=== PATIENT | female | born 1945 | race Caucasian/White ===

== ENCOUNTER → 2017-06-25 | Outpatient (CLI) | payer MEDICARE ==
[2016-04-19 15:11] VITALS: BP 152/72
--- NOTE | 2017-06-25 15:54 | RAD ---
DATE: 06/25/2017 EXAM: MAMMO THEO SCREENING BILATERAL Bilateral digital screening mammography to include digital breast tomosynthesis (3D mammography) HISTORY: Screening study. COMPARISON: 07/26/2014 This study was interpreted with the benefit of Computerized Aided Detection (CAD). FINDINGS: Digital MLO and CC mammograms of both breasts were obtained. Additionally digital breast tomosynthesis (3D mammography) images of both breasts in the MLO and CC projections were performed. Comparison study is dated 07/26/2014. The breast parenchyma is heterogeneously dense which can obscure a lesion on mammography (breast density code C). No spiculated mass is seen. No malignant appearing calcification or area of architectural distortion is noted. Benign-appearing calcifications are seen within both breasts. Digital breast tomosynthesis images demonstrate no spiculated mass or malignant appearing calcification. Since the previous examination there has been no significant interval change. IMPRESSION: BI-RADS Category 1, negative. There is no mammographic evidence of malignancy. Routine yearly screening mammography is recommended for follow-up. BI-RADS CATEGORY: 1 NEGATIVE RECOMMENDED FOLLOW-UP: 12M 12 MONTH FOLLOW-UP PQRS compliance statement: Patient information was entered into a reminder system with a target due date 06/25/2018 for the next mammogram. Mammography is a sensitive method for finding small breast cancers, but it does not detect them all and is not a substitute for careful clinical examination. A negative mammogram does not negate a clinically suspicious finding and should not result in delay in biopsying a clinically suspicious abnormality. "Our facility is accredited by the [employer] Mammography [employer]."
== END | disposition home or self-care (01) ==
LOC: MAMMO 13:02
PROVIDERS: ATTEND Family Medicine
DX: Z12.31 Encounter for screening mammogram for malignant neoplasm of breast (principal)
CPT/HCPCS: 77063; G0202; 77067

== ENCOUNTER 2018-01-06 15:35 | Inpatient (IN) | payer MEDICARE ==
[2018-01-06] VITALS (7 sets, daily range): BP systolic 107–141; BP diastolic 69–102
[~2018-01-06] VITALS: Ht 167.6 cm; Wt 85.3 kg
[2018-01-06] MEDS ORDERED: IV NORMAL SALINE 1,000ML 1,000 ML IV ONE (16:30)
[2018-01-06] MEDS ORDERED: ONDANSETRON PF 4 MG/2 ML VIAL. IV ONE (16:45)
--- NOTE | 2018-01-06 16:50 | EKG ---
[address] [address] Test Date: 2018-01-06 Test Time: 16:36:14 Pat Name: MARANDA BANDA Department: Room: Gender: F Nurse Practical: ESTEPHANIA : 1945 Requested By: TALIB SIERRA Order Number: [id number] Reading MD: Oscar Thurman Measurements Intervals [place] Rate: 145 P: OR: QRS: 23 QRSD: 102 T: 45 QT: 306 QTc: 478 Interpretive Statements ATRIAL FIBRILLATION. NONSPECIFIC ST-T WAVE CHANGES. RI6.01 No previous ECG available for comparison Electronically Signed On 01-08-2018 11:48:47 TROUBLE CLERK by Oscar Thurman
[2018-01-06 16:52] LABS: BASO % 0 % (0-3); EOS % 0 % (0-3); HEMATOCRIT 38.4 % (36.0-47.0); HEMOGLOBIN 13.1 g/dL (12.0-15.5); LYMPH % 11 % (24-48); MEAN CORPUSCULAR HEMOGLOBIN 32 pg (25-35); MEAN CORPUSCULAR HGB CONC 34 g/dL (31-37); MEAN CORPUSCULAR VOLUME 92 fL (79-100); MONO # 0.8 x10^3/uL (0.0-1.1); MONO % 8 % (0-9); NEUT # 7.4 x10^3uL (1.8-7.7); NEUT % 80 % (31-73); PLATELET COUNT 105 x10^3/uL (140-400); RED BLOOD COUNT 4.16 x10^6/uL (3.50-5.40); RED CELL DISTRIBUTION WIDTH 13.1 % (11.5-14.5); WHITE BLOOD COUNT 9.2 x10^3/uL (4.0-11.0)
[2018-01-06 17:07] LABS: CLARITY,URINE CLOUDY; COLOR,URINE AMBER; INFLUENZA A PATIENT NEGATIVE (NEGATIVE); INFLUENZA B PATIENT NEGATIVE (NEGATIVE)
[2018-01-06 17:08] LABS: BACTERIA,URINE MANY /HPF (0-FEW); BILIRUBIN,URINE NEG (NEG); GLUCOSE,URINE NEG (NEG); NITRITE,URINE NEG (NEG); RBC,URINE 0 /HPF (0-2); SQUAMOUS EPITHELIAL CELL,UR FEW /LPF; UROBILINOGEN,URINE 0.2 mg/dL (0.2 mg/dL)
[2018-01-06 17:10] LABS: ALBUMIN 3.2 g/dL (3.4-5.0); ALBUMIN/GLOBULIN RATIO 0.8 (1.0-1.7); CALCIUM 9.3 mg/dL (8.5-10.1); CREATININE 1.1 mg/dL (0.6-1.0); GFR 48.8; POTASSIUM 4.5 mmol/L (3.5-5.1); TOTAL BILIRUBIN 1.1 mg/dL (0.2-1.0)
--- NOTE | 2018-01-06 17:14 | RAD ---
Portable AP upright view CXR: Clinical indications: Shortness of air. Cough.. Comparison: July 18, 2016. Findings: There is an increase in interstitium on the right side which could be due to acute bronchitis. There are some ill-defined nodular infiltrates within the lateral aspect of the right midlung zone and right lower lung zone which may represent pneumonia. No pleural effusion or pneumothorax is seen. The heart size, pulmonary vasculature, mediastinum and both forrest are stable. Bilateral shoulder prostheses are seen. Impression: Acute bronchitis on the right side. Nodular lung infiltrates on the right side which may represent pneumonia. Recommend chest x-ray follow-up after completion of antibiotic therapy..
[2018-01-06 17:19] LABS: HYALINE CASTS, URINE OCC /HPF
[2018-01-06] MEDS ORDERED: METOPROLOL TARTRATE 5 MG/5 ML VIAL. IV ONE (17:30)
[2018-01-06] MEDS ORDERED: IV NORMAL SALINE 250ML 250 ML ONE (17:42)
[2018-01-06] MEDS ORDERED: AZITHROMYCIN 500 MG VIAL. IV ONE (17:42)
[2018-01-06] MEDS ORDERED: AZITHROMYCIN 500 MG in IV NORMAL SALINE 250ML 250 ML IV ONE (18:00)
[2018-01-06] MEDS ORDERED: cefTRIAXone IV Push 1 GM VIAL. IVP ONE (18:00)
[2018-01-06] MEDS ORDERED: ACETAMINOPHEN 325 MG TABLET PO PRN (18:15)
[2018-01-06] MEDS ORDERED: ONDANSETRON PF 4 MG/2 ML VIAL. IV PRN (18:15)
[2018-01-06] MEDS ORDERED: MORPHINE SULFATE 4 MG/ML DISP.SYRIN. IV PRN (18:15)
--- NOTE | 2018-01-06 18:24 | PHYS DOC ---
Past History Past Medical History: Arthritis, Diabetes, High Cholesterol, Hypertension, Other Past Surgical History: Appendectomy, Cholecystectomy, Knee Replacement, Tonsillectomy Alcohol Use: None Drug Use: None Adult General Chief Complaint Chief Complaint: FLU SYMPTOM HPI HPI Patient is a 72 year old female who presents with cough & vomiting. The patient reports 1 week history of productive cough with sweats/chills, today had onset of vomiting at least 5 episodes, not tolerating oral intake. She reports shortness of breath with exertion. She denies chest pain, abdominal pain, diarrhea, dysuria. Seen by PCP last week, negative influenza at that time. History of diabetes, hypertension, arrhythmia. PCP is Dr. Benavides. Review of Systems Review of Systems Constitutional: Reports sweats & chills Eyes: Denies change in visual acuity HENT: Denies nasal congestion, reports sore throat Respiratory: Reports cough & shortness of breath Cardiovascular: Denies chest pain or edema GI: Reports nausea & vomiting. Denies abdominal pain, or diarrhea : Denies dysuria or hematuria Musculoskeletal: Denies back pain or joint pain Integument: Denies rash or skin lesions Neurologic: Denies headache, focal weakness or sensory changes All other systems were reviewed and found to be within normal limits, except as documented in this note. Current Medications Current Medications Current Medications Medications (Trade) Dose Ordered Sig/Katherine Start Time Stop Time Status Last Admin Dose Admin Acetaminophen (Tylenol) 650 mg PRN Q4HRS PRN 01/06/18 18:15 01/07/18 18:14 Albuterol/ Ipratropium (Duoneb) 3 ml RTQID 01/06/18 20:00 01/07/18 19:59 Azithromycin (Zithromax) 500 mg STK-MED ONCE 01/06/18 17:42 01/06/18 17:43 DC Azithromycin 500 mg/Sodium Chloride 250 ml @ 250 mls/hr 1X ONCE 01/06/18 18:00 01/06/18 18:59 01/06/18 18:10 250 MLS/HR Ceftriaxone Sodium 1 gm/ Sodium Chloride 50 ml @ 100 mls/hr 1X ONCE 01/06/18 17:30 01/06/18 17:59 UNV Ceftriaxone Sodium (Rocephin) 1 gm 1X ONCE 01/06/18 18:00 01/06/18 18:01 DC 01/06/18 17:55 1 GM Metoprolol Tartrate (Lopressor Vial) 2.5 mg Q6HRS 01/07/18 00:00 UNV Morphine Sulfate (Morphine 2mg Syringe) 2 mg PRN Q2HR PRN 01/06/18 18:15 01/07/18 18:14 UNV Ondansetron HCl (Zofran) 4 mg PRN Q4HRS PRN 01/06/18 18:15 01/07/18 18:14 Sodium Chloride 1,000 ml @ 125 mls/hr Q8H 01/06/18 18:11 01/07/18 18:10 Allergies Allergies Allergies Coded Allergies Type Severity Reaction Last Updated Verified diltiazem Allergy Intermediate 04/12/16 Yes levofloxacin Allergy Intermediate 04/12/16 Yes verapamil Allergy Intermediate 04/12/16 Yes Physical Exam Physical Exam Constitutional: Well developed, well nourished, appears ill. HENT: Normocephalic, atraumatic, bilateral external ears normal, oropharynx dry , nose normal. Eyes: conjunctiva normal, no discharge. Neck: supple, no stridor. no meningismus Cardiovascular: RRR, no murmurs, no edema. Lungs & Thorax: LCTAB, no wheezing, no respiratory distress. frequent deep cough. Abdomen: soft, nontender, nondistended. no masses or pulsatile masses, no rebound or guarding. Skin: Warm, dry, no erythema, no rash. Back: No tenderness. Extremities: No tenderness, no edema. no calf tenderness or swelling. Neurologic: Alert and oriented X 3, no focal deficits noted. Psychologic: Affect normal, judgement normal, mood normal. Current Patient Data Vital Signs Vital Signs Date Time Temp Pulse Resp B/P (MAP) Pulse Ox O2 Delivery O2 Flow Rate FiO2 01/06/18 18:11 134 18 150/112 (125) 95 Room Air 01/06/18 15:45 97.8 Lab Results Laboratory Tests Test 01/06/18 16:20 01/06/18 16:25 White Blood Count 9.2 x10^3/uL (4.0-11.0) Red Blood Count 4.16 x10^6/uL (3.50-5.40) Hemoglobin 13.1 g/dL (12.0-15.5) Hematocrit 38.4 % (36.0-47.0) Mean Corpuscular Volume 92 fL (79-100) Mean Corpuscular Hemoglobin 32 pg (25-35) Mean Corpuscular Hemoglobin Concent 34 g/dL (31-37) Red Cell Distribution Width 13.1 % (11.5-14.5) Platelet Count 105 x10^3/uL (140-400) L Neutrophils (%) (Auto) 80 % (31-73) H Lymphocytes (%) (Auto) 11 % (24-48) L Monocytes (%) (Auto) 8 % (0-9) Eosinophils (%) (Auto) 0 % (0-3) Basophils (%) (Auto) 0 % (0-3) Neutrophils # (Auto) 7.4 x10^3uL (1.8-7.7) Lymphocytes # (Auto) 1.0 x10^3/uL (1.0-4.8) Monocytes # (Auto) 0.8 x10^3/uL (0.0-1.1) Eosinophils # (Auto) 0.0 x10^3/uL (0.0-0.7) Basophils # (Auto) 0.0 x10^3/uL (0.0-0.2) Sodium Level 135 mmol/L (136-145) L Potassium Level 4.5 mmol/L (3.5-5.1) Chloride Level 99 mmol/L (98-107) Carbon Dioxide Level 24 mmol/L (21-32) Anion Gap 12 (6-14) Blood Urea Nitrogen 23 mg/dL (7-20) H Creatinine 1.1 mg/dL (0.6-1.0) H Estimated GFR (Cockcroft-Gault) 48.8 BUN/Creatinine Ratio 21 (6-20) H Glucose Level 171 mg/dL (70-99) H Calcium Level 9.3 mg/dL (8.5-10.1) Total Bilirubin 1.1 mg/dL (0.2-1.0) H Aspartate Amino Transferase (AST) 32 U/L (15-37) Alanine Aminotransferase (ALT) 26 U/L (14-59) Alkaline Phosphatase 84 U/L (46-116) Troponin I Quantitative < 0.017 ng/mL (0-0.055) UO-Ura-H-Type Natriuretic Peptide 2314 pg/mL (0-124) H Total Protein 7.0 g/dL (6.4-8.2) Albumin 3.2 g/dL (3.4-5.0) L Albumin/Globulin Ratio 0.8 (1.0-1.7) L Lipase 59 U/L (73-393) L Urine Collection Type Unknown Urine Color Alma Rosa Urine Clarity Cloudy Urine pH 5.0 Urine Specific [place] 1.020 Urine Protein 100 mg/dl (NEG-TRACE) Urine Glucose (UA) Neg mg/dL (NEG) Urine Ketones (Stick) 15 mg/dL (NEG) Urine Blood Trace (NEG) Urine Nitrite Neg (NEG) Urine Bilirubin Neg (NEG) Urine Urobilinogen Dipstick 0.2 mg/dL (0.2 mg/dL) Urine Leukocyte Esterase Neg (NEG) Urine RBC 0 /HPF (0-2) Urine WBC 5-10 /HPF (0-4) Urine Squamous Epithelial Cells Few /LPF Urine Bacteria Many /HPF (0-FEW) Urine Hyaline Casts Occ /HPF Urine Mucus Slight /LPF Influenza Type A (Rapid) Negative (NEGATIVE) Influenza Type B (Rapid) Negative (NEGATIVE) EKG EKG Interpreted by me: Irregularly irregular A. fib with rapid ventricular rate 145 , no acute ST or T wave changes, no ectopy[] Radiology/Procedures Radiology/Procedures PROCEDURE: CHEST AP ONLY Portable AP upright view CXR: Clinical indications: Shortness of air. Cough.. Comparison: July 18, 2016. Findings: There is an increase in interstitium on the right side which could be due to acute bronchitis. There are some ill-defined nodular infiltrates within the lateral aspect of the right midlung zone and right lower lung zone which may represent pneumonia. No pleural effusion or pneumothorax is seen. The heart size, pulmonary vasculature, mediastinum and both forrest are stable. Bilateral shoulder prostheses are seen. Impression: Acute bronchitis on the right side. Nodular lung infiltrates on the right side which may represent pneumonia. Recommend chest x-ray follow-up after completion of antibiotic therapy.. DICTATED AND SIGNED BY: RAKESH COBURN MD DATE: 01/06/18 7456[] Course & Med Decision Making Course & Med Decision Making Pertinent Labs and Imaging studies reviewed. (See chart for details) The patient presents with respiratory illness and vomiting. Vitals stable upon arrival. Gave IV fluids, Zofran. Obtained labs, EKG, chest x-ray. Patient ambulate to the restroom, came back and had EKG performed which showed heart rate in the 140s. She was found to be in A. fib with rapid ventricular rate at that time. Allowed her to rest, gave IV fluids. Her heart rate remains significantly elevated with A. fib. Administered metoprolol as she has Cardizem allergy. This is not new onset. Suspect rapid rate related to acute illness. She was found to have pneumonia on her chest x-ray. Other than rapid heart rate , no additional criteria for SIRS/sepsis. With persistently abnormal vitals, source of infection, vomiting preventing her from taking oral antibiotics at home, recommended admission to hospital for further evaluation and treatment. The patient agreed with plan of care. Discussed with Dr. Wilder who agrees to admit to inpatient status. Consulted with Dr. Valenzuela of cardiology who agrees with management plan. The patient is being admitted in stable condition. [] Dragon Disclaimer Dragon Disclaimer This electronic medical record was generated, in whole or in part, using a voice recognition dictation system. Departure Departure: Impression: Primary Impression: Atrial fibrillation with RVR Additional Impressions: Community acquired bacterial pneumonia Nausea & vomiting Disposition: ADMITTED INPATIENT Admitting Physician: Margie Wilder Condition: GUARDED Referrals: TRISTAN PORTILLO MD (PCP) Problem Qualifiers TALIB SIERRA MD Jan 06, 2018 18:23
[2018-01-06] MEDS: IPRATRPIUM/ALBUTEROL 0.5/2.5MG 3 ML NEBU. NEB SCH (20:00)
[2018-01-06] MEDS ORDERED: CHOL2000 PO (20:07)
[2018-01-06] MEDS ORDERED: DOCU-109 PO (20:07)
[2018-01-06] MEDS ORDERED: CYAN50008 PO (20:07)
[2018-01-06] MEDS ORDERED: FISH1CAP PO (20:07)
[2018-01-06] MEDS ORDERED: CARV6.252 PO (20:07)
[2018-01-06] MEDS ORDERED: ALLO100T PO (20:07)
[2018-01-06] MEDS ORDERED: CALC-30 PO (20:07)
[2018-01-06] MEDS ORDERED: SIMV40TA3 PO (20:07)
[2018-01-06] MEDS ORDERED: GLIM4TAB2 PO (20:07)
[2018-01-06] MEDS ORDERED: TRAM50TA PO (20:07)
[2018-01-06] MEDS ORDERED: ASPI-630 PO (20:07)
[2018-01-06] MEDS ORDERED: GABA-585 PO (20:07)
[2018-01-06] MEDS ORDERED: LISI-334 PO (20:07)
[2018-01-06] MEDS ORDERED: KETOROLAC 30 MG/ML VIAL. IV PRN (20:15)
[2018-01-06] MEDS ORDERED: ACETAMINOPHEN 500 MG TABLET PO ONE (20:30)
[2018-01-06] MEDS: ENOXAPARIN 40 MG/0.4 ML DISP.SYRIN. SQ SCH (20:47)
[2018-01-06] MEDS: DEXTROSE 5% IV PRN (20:47)
[2018-01-06] MEDS: DOCUSATE SODIUM 100 MG CAPSULE PO SCH (20:47)
[2018-01-06] MEDS: SIMVASTATIN 40 MG TABLET. PO SCH (20:47)
[2018-01-06] MEDS: DILTIAZEM IV PRN (20:47)
[2018-01-06] MEDS: LACTOBACILLUS RHAMNOSUS GG 1 CAPSULE. PO SCH (20:48)
[2018-01-06] MEDS: GABAPENTIN 100 MG CAPSULE. PO SCH (20:48)
[2018-01-06] MEDS: OMEGA-3 FATTY ACIDS/FISH OIL 1,000 MG CAPSULE. PO SCH (20:48)
[2018-01-06] MEDS: IV NORMAL SALINE 1,000ML 1,000 ML IV SCH (20:49)
[2018-01-06] MEDS: CYANOCOBALAMIN (VITAMIN B-12) 250 MCG TABLET PO SCH (20:51)
[2018-01-06] MEDS: traMADol 50 MG TABLET PO SCH (20:51)
[2018-01-06] MEDS: METOPROLOL TARTRATE 5 MG/5 ML VIAL. IV SCH (23:58)
[2018-01-07] VITALS (18 sets, daily range): BP systolic 103–144; BP diastolic 59–82
[2018-01-07] MEDS: IV NORMAL SALINE 1,000ML 1,000 ML IV SCH ×3 (04:02→16:26)
[2018-01-07] MEDS: METOPROLOL TARTRATE 5 MG/5 ML VIAL. IV SCH ×3 (04:16→17:23)
[2018-01-07] MEDS: IPRATRPIUM/ALBUTEROL 0.5/2.5MG 3 ML NEBU. NEB SCH ×4 (06:15→21:17)
[2018-01-07 06:47] LABS: BASO % 0 % (0-3); EOS % 0 % (0-3); HEMATOCRIT 32.9 % (36.0-47.0); HEMOGLOBIN 11.2 g/dL (12.0-15.5); LYMPH # 1.6 x10^3/uL (1.0-4.8); LYMPH % 22 % (24-48); MEAN CORPUSCULAR HEMOGLOBIN 32 pg (25-35); MEAN CORPUSCULAR HGB CONC 34 g/dL (31-37); MEAN CORPUSCULAR VOLUME 93 fL (79-100); MONO # 0.7 x10^3/uL (0.0-1.1); MONO % 11 % (0-9); NEUT # 4.6 x10^3uL (1.8-7.7); NEUT % 67 % (31-73); PLATELET COUNT 90 x10^3/uL (140-400); RED BLOOD COUNT 3.54 x10^6/uL (3.50-5.40); RED CELL DISTRIBUTION WIDTH 13.4 % (11.5-14.5)
[2018-01-07 06:54] LABS: CALCIUM 8.3 mg/dL (8.5-10.1); GFR 54.5; POTASSIUM 3.5 mmol/L (3.5-5.1)
[2018-01-07] MEDS: GABAPENTIN 100 MG CAPSULE. PO SCH ×2 (07:35→20:23)
[2018-01-07] MEDS: OMEGA-3 FATTY ACIDS/FISH OIL 1,000 MG CAPSULE. PO SCH ×2 (07:35→20:23)
[2018-01-07] MEDS: LACTOBACILLUS RHAMNOSUS GG 1 CAPSULE. PO SCH ×2 (07:35→20:22)
[2018-01-07] MEDS: DOCUSATE SODIUM 100 MG CAPSULE PO SCH ×2 (07:35→20:23)
[2018-01-07] MEDS: GLIMEPIRIDE 2 MG TABLET PO SCH ×2 (07:35→15:32)
[2018-01-07] MEDS: CYANOCOBALAMIN (VITAMIN B-12) 250 MCG TABLET PO SCH ×2 (07:35→20:25)
[2018-01-07] MEDS: CALCIUM CARB/VIT D3 500/200 TABLET PO SCH (07:35)
[2018-01-07] MEDS: traMADol 50 MG TABLET PO SCH ×4 (07:36→20:24)
[2018-01-07] MEDS: cefTRIAXone IV Push 1 GM VIAL. IVP SCH (07:36)
[2018-01-07] MEDS: DILTIAZEM IV PRN (07:38)
[2018-01-07] MEDS: DEXTROSE 5% IV PRN (07:38)
[2018-01-07] MEDS ORDERED: ALBUTEROL SULFATE 2.5 MG/3 ML NEBU. ONE (08:20)
[2018-01-07] MEDS: ALLOPURINOL 100 MG TABLET. PO SCH (08:21)
[2018-01-07] MEDS: CHOLECALCIFEROL (VITAMIN D3) 1,000 UNIT TABLET PO SCH (08:21)
[2018-01-07] MEDS: ASPIRIN 81 MG TAB.CHEW PO SCH (08:21)
[2018-01-07] MEDS: AZITHROMYCIN 250 MG TABLET. PO SCH (08:21)
[2018-01-07] MEDS ORDERED: ACETAMINOPHEN 325 MG TABLET PO PRN (08:30)
[2018-01-07] MEDS ORDERED: ALBUTEROL SULFATE 2.5 MG/3 ML NEBU. NEB ONE (08:45)
[2018-01-07] MEDS ORDERED: ACETAMINOPHEN/CODEINE 120/12MG 5 ML SOLUTION. PO ONE (08:45)
--- NOTE | 2018-01-07 09:48 | PDOC2 ---
CONSULT Date of Admission DATE: 01/07/18 TIME: 09:46 Reason for Consult: atrial fibrillation with RVR Problem List Problems Medical Problems: (1) Atrial fibrillation with RVR Status: Acute (2) Community acquired bacterial pneumonia Status: Acute (3) Nausea & vomiting Status: Acute History of Present Illness Ms Terry is a 72 year old female who presented to the ED with complaints of shortness of breath, cough & vomiting. She reports onset about 1 week ago with associated fever/sweats and chills. Yesterday she began to have vomiting as well and being unable to tolerate any oral intake so presented to the ED for evaluation. She was noted to be in atrial fibrillation with rapid ventricular response so consult was called. She denies chest pain, or palpitations and is unsure when atrial fibrillation began. She reports dyspnea on exertion but denies congestive symptoms. she denies lightheadedness or syncope. She does complain of generalized malaise. 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, CKD stage 3 Cardiac cath 06/27/16 LM - no significant disease LAD - no significant disease LCX - no significant disease Left PDA - small, diffuse calcification without stenosis RI - small, diffuse calcification without stenosis RCA - large, diffuse calcification without stenosis Right PDA - no significant disease EF 35%, EDP 28 mmHg Past Surgical History right total knee, tonsillectomy, cholecystectomy, tubal ligation, left total knee, bilateral shoulder replacement, hernia repair, left superficial parotidectomy with facial nerve dissection Family History mother and father with heart disease Social History non smoker, no significant ETOH, no illicit drugs Current Medications Current Medications Sodium Chloride 1,000 ml @ 1,000 mls/hr 1X ONCE IV Last administered on at 16:41; Start 01/06/18 at 16:30; Stop 01/06/18 at 17:29; Status DC Ondansetron HCl (Zofran) 4 mg 1X ONCE IV Last administered on 01/06/18at 16:42 ; Start 01/06/18 at 16:45; Stop 01/06/18 at 16:46; Status DC Metoprolol Tartrate (Lopressor Vial) 2.5 mg 1X ONCE IV Last administered on at 17:48; Start 01/06/18 at 17:30; Stop 01/06/18 at 17:31; Status DC Ceftriaxone Sodium 1 gm/ Sodium Chloride 50 ml @ 100 mls/hr 1X ONCE IV ; Start 01/06/18 at 17:30; Stop 01/06/18 at 17:59; Status UNV Azithromycin 500 mg/Sodium Chloride 250 ml @ 250 mls/hr 1X ONCE IV Last administered on 01/06/18at 18:10; Start 01/06/18 at 18:00; Stop 01/06/18 at 18:59 ; Status DC Ceftriaxone Sodium (Rocephin) 1 gm 1X ONCE IVP Last administered on 01/06/18at 17:55; Start 01/06/18 at 18:00; Stop 01/06/18 at 18:01; Status DC Sodium Chloride 250 ml @ As Directed STK-MED ONCE .ROUTE ; Start 01/06/18 at 17 :42; Stop 01/06/18 at 17:43; Status DC Azithromycin (Zithromax) 500 mg STK-MED ONCE IV ; Start 01/06/18 at 17:42; Stop 01/06/18 at 17:43; Status DC Ondansetron HCl (Zofran) 4 mg PRN Q4HRS PRN IV NAUSEA/VOMITING; Start 01/06/18 at 18:15; Stop 01/07/18 at 18:14 Morphine Sulfate (Morphine 4mg Syringe) 2 mg PRN Q2HR PRN IV PAIN; Start at 18:15; Stop 01/07/18 at 18:14 Sodium Chloride 1,000 ml @ 125 mls/hr Q8H IV Last administered on 01/07/18at 04 :02; Start 01/06/18 at 18:11; Stop 01/07/18 at 18:10 Acetaminophen (Tylenol) 650 mg PRN Q4HRS PRN PO FEVER Last administered on 01/07at 07:35; Start 01/06/18 at 18:15; Stop 01/07/18 at 08:23; Status DC Albuterol/ Ipratropium (Duoneb) 3 ml RTQID NEB Last administered on 01/07/18at 06:15; Start 01/06/18 at 20:00; Stop 01/07/18 at 19:59 Metoprolol Tartrate (Lopressor Vial) 2.5 mg Q6HRS IV ; Start 01/07/18 at 00:00 Diltiazem HCl 100 mg/Dextrose 100 ml @ 5 mls/hr CONT PRN IV SEE I/O RECORD Last administered on 01/07/18at 07:38; Start 01/06/18 at 20:15 Enoxaparin Sodium (Lovenox) 40 mg Q24H SQ Last administered on 01/06/18at 20:47 ; Start 01/06/18 at 21:00 Ketorolac Tromethamine (Toradol) 30 mg PRN Q6HRS PRN IV PAIN; Start 01/06/18 at 20:15; Stop 01/11/18 at 20:14 Acetaminophen (Tylenol) 1,000 mg 1X ONCE PO Last administered on 01/06/18at 20: 47; Start 01/06/18 at 20:30; Stop 01/06/18 at 20:31; Status DC Azithromycin (Zithromax) 500 mg DAILY PO Last administered on 01/07/18at 08:21; Start 01/07/18 at 09:00 Ceftriaxone Sodium 1 gm/ Sodium Chloride 50 ml @ 100 mls/hr Q24H IV ; Start at 09:00; Status UNV Allopurinol (Zyloprim) 100 mg DAILY PO Last administered on 01/07/18at 08:21; Start 01/07/18 at 09:00 Aspirin (Children'S Aspirin) 81 mg DAILY PO Last administered on 01/07/18at 08: 21; Start 01/07/18 at 09:00 Docusate Sodium (Colace) 100 mg BID PO Last administered on 01/07/18at 07:35; Start 01/06/18 at 21:00 Gabapentin (Neurontin) 100 mg BID PO Last administered on 01/07/18 07:35; Start 01/06/18 at 21:00 Simvastatin (Zocor) 40 mg QHS PO Last administered on 01/06/18at 20:47; Start at 21:00 Tramadol HCl (Ultram) 50 mg QID PO Last administered on 01/07/18at 07:36; Start 01/06/18 at 21:00 Calcium/Vitamin D (Oscal D 500mg/ 200uts) 1 tab [id number] PO Last administered on 01/07/18at 07:35; Start 01/07/18 at 08:00 Vitamin D (Vitamin D3) 2,000 unit DAILY PO Last administered on 01/07/18at 08:21 ; Start 01/07/18 at 09:00 Cyanocobalamin (Vitamin B-12) 500 mcg BID PO Last administered on 01/07/18 07: 35; Start 01/06/18 at 21:00 Fish Oil (Fish Oil) 1,000 mg BID PO Last administered on 01/07/18at 07:35; Start 01/06/18 at 21:00 Glimepiride (Amaryl) 4 mg BIDWMEALS PO Last administered on 01/07/18 07:35; Start 01/07/18 at 08:00 Ceftriaxone Sodium (Rocephin) 1 gm DAILY IVP Last administered on 01/07/18at 07: 36; Start 01/07/18 at 09:00 Lactobacillus Rhamnosus (Culturelle) 1 cap BID PO Last administered on at 07:35; Start 01/06/18 at 21:00 Albuterol Sulfate (Ventolin) 2.5 mg STK-MED ONCE .ROUTE ; Start 01/07/18 at 08: 20; Stop 01/07/18 at 08:21; Status DC Albuterol Sulfate (Ventolin) 2.5 mg 1X ONCE NEB ; Start 01/07/18 at 08:45; Stop 01/07/18 at 08:46; Status DC Methylprednisolone Sodium Succinate (SOLU-Medrol 125MG VIAL) 125 mg Q8HRS IV ; Start 01/07/18 at 08:23 Guaifenesin (MUCINEX ER with DM) 1 tab BID PO ; Start 01/07/18 at 09:00 Acetaminophen (Tylenol) 650 mg PRN Q6HRS PRN PO PAIN / TEMP; Start 01/07/18 at 08:30 Acetaminophen/ Codeine Phosphate (Tylenol/Codeine Soln) 5 ml 1X ONCE PO ; Start 01/07/18 at 08:45; Stop 01/07/18 at 08:46; Status DC Active Scripts Active Reported Vitamin B12 (Cyanocobalamin (Vitamin B-12)) 5,000 Mcg Tab.rapdis 500 Mcg PO BID Calcium 500 + Vit D 400 Tablet (Calcium Carbonate/Vitamin D3) 1 Each Tablet 1 Each PO DAILY Colace (Docusate Sodium) 100 Mg Capsule 1 Cap PO BID Aspirin 81 Mg Tab.chew 81 Mg PO DAILY Fish Oil 1,200 Mg Fish Oil (Fish Oil/Dha/Epa) 1 Each Capsule 1 Each PO BID Vitamin D (Cholecalciferol (Vitamin D3)) 2,000 Unit Capsule 1 Cap PO DAILY Gabapentin 100 Mg Capsule 100 Mg PO BID Allopurinol 100 Mg Tablet 1 Tab PO DAILY Tramadol Hcl (Tramadol HCl) 50 Mg Tablet 50 Mg PO QID Carvedilol 6.25 Mg Tablet 1 Tab PO BID Glimepiride 4 Mg Tablet 1 Tab PO BID Simvastatin 40 Mg Tablet 1 Tab PO QHS Lisinopril 20 Mg Tablet 1 Tab PO DAILY Allergies: Coded Allergies: levofloxacin (Verified Allergy, Intermediate, 04/12/16) verapamil (Verified Allergy, Intermediate, 04/12/16) Review of System as per HPI General: Alert, Oriented X3, Cooperative, mild distress HEENT: Atraumatic, EOMI, Mucous membr. moist/pink Lungs: Other (expiratory wheezing throughout) Heart: Regular rate, Normal S1, Normal S2 Abdomen: Normal bowel sounds, Soft Extremities: No cyanosis, Normal pulses Neuro: Strength at 5/5 X4 ext Psych/Mental Status: Mental status NL, Mood NL VITALS Vital Signs Date Time Temp Pulse Resp B/P (MAP) Pulse Ox O2 Delivery O2 Flow Rate FiO2 01/07/18 09:31 90 18 118/59 (78) 95 Nasal Cannula 2.0 01/07/18 05:50 97.5 Labs Laboratory Tests Test 01/06/18 16:20 01/06/18 16:25 01/06/18 23:40 01/07/18 06:00 White Blood Count 9.2 x10^3/uL (4.0-11.0) 7.0 x10^3/uL (4.0-11.0) Red Blood Count 4.16 x10^6/uL (3.50-5.40) 3.54 x10^6/uL (3.50-5.40) Hemoglobin 13.1 g/dL (12.0-15.5) 11.2 g/dL (12.0-15.5) Hematocrit 38.4 % (36.0-47.0) 32.9 % (36.0-47.0) Mean Corpuscular Volume 92 fL (79-100) 93 fL (79-100) Mean Corpuscular Hemoglobin 32 pg (25-35) 32 pg (25-35) Mean Corpuscular Hemoglobin Concent 34 g/dL (31-37) 34 g/dL (31-37) Red Cell Distribution Width 13.1 % (11.5-14.5) 13.4 % (11.5-14.5) Platelet Count 105 x10^3/uL (140-400) 90 x10^3/uL (140-400) Neutrophils (%) (Auto) 80 % (31-73) 67 % (31-73) Lymphocytes (%) (Auto) 11 % (24-48) 22 % (24-48) Monocytes (%) (Auto) 8 % (0-9) 11 % (0-9) Eosinophils (%) (Auto) 0 % (0-3) 0 % (0-3) Basophils (%) (Auto) 0 % (0-3) 0 % (0-3) Neutrophils # (Auto) 7.4 x10^3uL (1.8-7.7) 4.6 x10^3uL (1.8-7.7) Lymphocytes # (Auto) 1.0 x10^3/uL (1.0-4.8) 1.6 x10^3/uL (1.0-4.8) Monocytes # (Auto) 0.8 x10^3/uL (0.0-1.1) 0.7 x10^3/uL (0.0-1.1) Eosinophils # (Auto) 0.0 x10^3/uL (0.0-0.7) 0.0 x10^3/uL (0.0-0.7) Basophils # (Auto) 0.0 x10^3/uL (0.0-0.2) 0.0 x10^3/uL (0.0-0.2) Sodium Level 135 mmol/L (136-145) 139 mmol/L (136-145) Potassium Level 4.5 mmol/L (3.5-5.1) 3.5 mmol/L (3.5-5.1) Chloride Level 99 mmol/L (98-107) 105 mmol/L (98-107) Carbon Dioxide Level 24 mmol/L (21-32) 26 mmol/L (21-32) Anion Gap 12 (6-14) 8 (6-14) Blood Urea Nitrogen 23 mg/dL (7-20) 20 mg/dL (7-20) Creatinine 1.1 mg/dL (0.6-1.0) 1.0 mg/dL (0.6-1.0) Estimated GFR (Cockcroft-Gault) 48.8 54.5 BUN/Creatinine Ratio 21 (6-20) Glucose Level 171 mg/dL (70-99) 160 mg/dL (70-99) Calcium Level 9.3 mg/dL (8.5-10.1) 8.3 mg/dL (8.5-10.1) Total Bilirubin 1.1 mg/dL (0.2-1.0) Aspartate Amino Transf (AST/SGOT) 32 U/L (15-37) Alanine Aminotransferase (ALT/SGPT) 26 U/L (14-59) Alkaline Phosphatase 84 U/L (46-116) Troponin I Quantitative < 0.017 ng/mL (0-0.055) < 0.017 ng/mL (0-0.055) 0.018 ng/mL (0-0.055) DL-Ybx-I-Type Natriuretic Peptide 2314 pg/mL (0-124) Total Protein 7.0 g/dL (6.4-8.2) Albumin 3.2 g/dL (3.4-5.0) Albumin/Globulin Ratio 0.8 (1.0-1.7) Lipase 59 U/L (73-393) Urine Collection Type Unknown Urine Color [place]ma Rosa Urine Clarity Cloudy Urine pH 5.0 Urine Specific [place] 1.020 Urine Protein 100 mg/dl (NEG-TRACE) Urine Glucose (UA) Neg mg/dL (NEG) Urine Ketones (Stick) 15 mg/dL (NEG) Urine Blood Trace (NEG) Urine Nitrite Neg (NEG) Urine Bilirubin Neg (NEG) Urine Urobilinogen Dipstick 0.2 mg/dL (0.2 mg/dL) Urine Leukocyte Esterase Neg (NEG) Urine RBC 0 /HPF (0-2) Urine WBC 5-10 /HPF (0-4) Urine Squamous Epithelial Cells Few /LPF Urine Bacteria Many /HPF (0-FEW) Urine Hyaline Casts Occ /HPF Urine Mucus Slight /LPF Influenza Type A (Rapid) Negative (NEGATIVE) Influenza Type B (Rapid) Negative (NEGATIVE) Magnesium Level 2.0 mg/dL (1.8-2.4) Images CXR - Impression: Acute bronchitis on the right side. Nodular lung infiltrates on the right side which may represent pneumonia. Recommend chest x-ray follow-up after completion of antibiotic therapy. EKG unavailable Assessment/Plan 1. atrial fibrillation with RVR - Cardizem drip and change to PO when rate control improves, check echo. [id number] score =5. She prefers warfarin for anticoagulation due to her insurance 2. CAP - mgmt per PCP 3. hypertension with history of NICM EF 35% in 2016 4. hyperlipidemia - check lipids 5. diabetes mellitus. - mgmt per PCP Problems: CLAYTON ROE APRN Jan 07, 2018 09:48
[2018-01-07] MEDS: methylPREDNISolone SOD SUCC PF 125 MG/2 ML VIAL. IV SCH ×3 (09:57→20:31)
[2018-01-07] MEDS: guaiFENesin DM 600/30MG 1 TAB TAB.ER.12H PO SCH ×2 (09:57→20:23)
--- NOTE | 2018-01-07 15:07 | HP ---
ADMIT DATE: 01/06/2018 REASON FOR ADMISSION: Flu symptoms, AFib with RVR. HISTORY OF PRESENT ILLNESS: This is a 72-year-old female who presented to the Emergency Room with a 1 week history of productive cough with sweats and chills, also right ear hurts, mild shortness of breath with wheezing. Denies sputum production. Also vomiting at least 5 episodes, but that has stopped. She had a flu test done last week, which was negative. PAST MEDICAL HISTORY: Non-Hodgkin's lymphoma in 2006, still in remission, hypertension, hypothyroidism, diabetes, hypercholesterolemia, gout, and history of falls. PAST SURGICAL HISTORY: Extensive and includes appendectomy, tonsillectomy, left knee replacement, right knee replacement, tubal ligation, dental extractions. MEDICATIONS: Reviewed. She brought a list, updated and available on the JAN. SOCIAL HISTORY: Nonsmoker. IMMUNIZATIONS: Flu shot 2017. REVIEW OF SYSTEMS: As per HPI. Also feels quite weak. PHYSICAL EXAMINATION: VITAL SIGNS: Blood pressure is 118/59, pulse 90, respirations 18, pulse ox 95% on 2 liters, temperature 97.9. HEENT: Right TM partially occluded by wax, but is silver. Left TM is normal. Eyes clear, nose patent, throat clear. NECK: Supple, without adenopathy. LUNGS: With diffuse wheezes. CARDIOVASCULAR: Regular rhythm and rate. ABDOMEN: Soft, nontender. EXTREMITIES: Without edema. LABORATORY DATA: Normal white count, platelet count 90,000. Troponin 0.017, 0.018. Urinalysis: 5-10 white cells, negative nitrites, negative leukocyte esterase. Influenza negative. Chest x-ray, acute bronchitis on the right, nodular lung infiltrate on the right side, which may represent pneumonia. EKG: AFib with RVR. ASSESSMENT: 1. Community-acquired pneumonia. 2. Acute bronchitis. 3. Atrial fibrillation with rapid ventricular response. 4. Nausea and vomiting, resolved. 5. History of non-Hodgkin's lymphoma in remission. 6. Hypertension. 7. Diabetes. PLAN: IV antibiotics, breathing treatments, Cardizem drip, IV steroids and will continue to monitor. STEVIE SLAUGHTER DO DR: CARLY/nts JOB#: [id number] / [id number]
--- NOTE | 2018-01-07 16:05 | CARD ---
MR#: [id number] Date of Study: 01/07/2018 Ordering Physician: CLAYTON ROE, Referring Physician: STEVIE SLAUGHTER, Tech: BARBARA Mott APPROVED REPORT EXAM: Two-dimensional and M-mode echocardiogram with Doppler and color Doppler. Other Information Quality : Average INDICATION Atrial Fibrillation 2D DIMENSIONS Left Atrium(2D)4.0 (1.6-4.0cm)IVSd1.4 (0.7-1.1cm) Aortic Root(2D)2.9 (2.0-3.7cm)LVDd3.1 (3.9-5.9cm) LVOT Diameter1.9 (1.8-2.4cm)PWd1.1 (0.7-1.1cm) LVDs2.3 (2.5-4.0cm)FS (%) 28.0 % SV18.4 mlLVEF(%)55.0 (>50%) Aortic Valve LVOT Peak Jayden.88.9cm/s Tricuspid Valve TR P. [id number] TR Peak [id number] LEFT VENTRICLE The left ventricle is normal size. There is borderline concentric left ventricular hypertrophy. The l eft ventricular systolic function is normal and the ejection fraction is within normal range. The Eje ction Fraction is 50-55%. There is normal LV segmental wall motion. RIGHT VENTRICLE The right ventricle is normal size. There is normal right ventricular wall thickness. The right ventr icular systolic function is normal. ATRIA The left atrium is mildly dilated. The right atrium size is normal. The interatrial septum is intact with no evidence for an atrial septal defect or patent foramen ovale as noted on 2-D or Doppler imagi ng. AORTIC VALVE The aortic valve is trileaflet. The aortic valve is mildly sclerotic. Doppler and Color Flow revealed trace aortic regurgitation. There is no significant aortic valvular stenosis. MITRAL VALVE The mitral valve is normal in structure and function. Mitral annular calcification is mild. There is no evidence of mitral valve prolapse. There is no mitral valve stenosis. Doppler and Color-flow revea led trace mitral regurgitation. TRICUSPID VALVE The tricuspid valve is normal in structure and function. Doppler and Color Flow revealed mild to mode rate tricuspid regurgitation. There is no tricuspid valve stenosis. PULMONIC VALVE The pulmonary valve is normal in structure and function. Doppler and Color Flow revealed trace pulmon ic valvular regurgitation. There is no pulmonic valvular stenosis. GREAT VESSELS The aortic root is normal in size. The IVC is normal in size and collapses >50% with inspiration. PERICARDIAL EFFUSION There is no pleural effusion. There is no evidence of significant pericardial effusion. Critical Notification Critical Value: No <Conclusion> The left ventricle is normal size. The left ventricular systolic function is normal and the ejection fraction is within normal range. The Ejection Fraction is 50-55%. The left atrium is mildly dilated. There is no significant aortic valvular stenosis. Doppler and Color Flow revealed trace aortic regurgitation. Doppler and Color-flow revealed trace mitral regurgitation. Doppler and Color Flow revealed mild to moderate tricuspid regurgitation. Signed by : Oscar Thurman MD Electronically Approved : 01/07/2018 16:05:30
[2018-01-07] MEDS ORDERED: INSULIN ASPART 300 UNITS/3 ML INSULN.PEN SQ ONE (17:15)
[2018-01-07] MEDS: INSULIN ASPART 300 UNITS/3 ML INSULN.PEN SQ SCH ×2 (18:35→20:30)
[2018-01-07] MEDS ORDERED: MELA3TAB2 PO (18:49)
[2018-01-07] MEDS ORDERED: WARFARIN 5 MG TABLET. PO ONE (19:00)
[2018-01-07] MEDS: ENOXAPARIN 40 MG/0.4 ML DISP.SYRIN. SQ SCH (20:22)
[2018-01-07] MEDS: SIMVASTATIN 40 MG TABLET. PO SCH (20:23)
[2018-01-07] MEDS: MELATONIN 3 MG TABLET PO PRN (20:24)
[2018-01-08] VITALS (16 sets, daily range): BP systolic 15–165; BP diastolic 65–94
[2018-01-08] MEDS ORDERED: IPRATRPIUM/ALBUTEROL 0.5/2.5MG 3 ML NEBU. ONE (05:04)
[2018-01-08] MEDS: METOPROLOL TARTRATE 5 MG/5 ML VIAL. IV SCH ×3 (05:09→07:36)
[2018-01-08] MEDS: methylPREDNISolone SOD SUCC PF 125 MG/2 ML VIAL. IV SCH ×3 (05:27→21:09)
[2018-01-08] MEDS: GLIMEPIRIDE 2 MG TABLET PO SCH ×2 (07:34→16:43)
[2018-01-08] MEDS: OMEGA-3 FATTY ACIDS/FISH OIL 1,000 MG CAPSULE. PO SCH ×2 (07:34→21:08)
[2018-01-08] MEDS: ASPIRIN 81 MG TAB.CHEW PO SCH (07:34)
[2018-01-08 07:35] LABS: ALBUMIN 2.8 g/dL (3.4-5.0); CALCIUM 8.9 mg/dL (8.5-10.1); GFR 54.5; MAGNESIUM 2.4 mg/dL (1.8-2.4); POTASSIUM 4.4 mmol/L (3.5-5.1); TOTAL BILIRUBIN 0.3 mg/dL (0.2-1.0); TOTAL PROTEIN 5.7 g/dL (6.4-8.2)
[2018-01-08] MEDS: DOCUSATE SODIUM 100 MG CAPSULE PO SCH ×2 (07:35→21:08)
[2018-01-08] MEDS: CYANOCOBALAMIN (VITAMIN B-12) 250 MCG TABLET PO SCH ×2 (07:35→21:08)
[2018-01-08] MEDS: ALLOPURINOL 100 MG TABLET. PO SCH (07:35)
[2018-01-08] MEDS: GABAPENTIN 100 MG CAPSULE. PO SCH ×2 (07:35→21:08)
[2018-01-08] MEDS: CALCIUM CARB/VIT D3 500/200 TABLET PO SCH (07:35)
[2018-01-08] MEDS: traMADol 50 MG TABLET PO SCH ×4 (07:35→21:09)
[2018-01-08] MEDS: guaiFENesin DM 600/30MG 1 TAB TAB.ER.12H PO SCH ×2 (07:35→21:08)
[2018-01-08] MEDS: LACTOBACILLUS RHAMNOSUS GG 1 CAPSULE. PO SCH ×2 (07:36→21:08)
[2018-01-08] MEDS: AZITHROMYCIN 250 MG TABLET. PO SCH (07:36)
[2018-01-08] MEDS: CHOLECALCIFEROL (VITAMIN D3) 1,000 UNIT TABLET PO SCH (07:36)
[2018-01-08] MEDS: INSULIN ASPART 300 UNITS/3 ML INSULN.PEN SQ SCH ×4 (07:47→21:12)
[2018-01-08] MEDS ORDERED: ALBUTEROL SULFATE 2.5 MG/3 ML NEBU. ONE (08:00)
[2018-01-08] MEDS: IPRATRPIUM/ALBUTEROL 0.5/2.5MG 3 ML NEBU. NEB SCH ×4 (08:00→21:28)
[2018-01-08] MEDS ORDERED: ALBUTEROL SULFATE 2.5 MG/3 ML NEBU. NEB PRN (08:00)
[2018-01-08 08:27] LABS: BASO % 0 % (0-3); EOS % 0 % (0-3); HEMOGLOBIN 11.5 g/dL (12.0-15.5); LYMPH # 0.5 x10^3/uL (1.0-4.8); LYMPH % 10 % (24-48); MEAN CORPUSCULAR HEMOGLOBIN 31 pg (25-35); MEAN CORPUSCULAR HGB CONC 34 g/dL (31-37); MEAN CORPUSCULAR VOLUME 93 fL (79-100); MONO # 0.2 x10^3/uL (0.0-1.1); MONO % 3 % (0-9); NEUT # 4.4 x10^3uL (1.8-7.7); NEUT % 87 % (31-73); PLATELET COUNT 134 x10^3/uL (140-400); RED BLOOD COUNT 3.66 x10^6/uL (3.50-5.40); RED CELL DISTRIBUTION WIDTH 13.4 % (11.5-14.5); WHITE BLOOD COUNT 5.1 x10^3/uL (4.0-11.0)
[2018-01-08] MEDS: cefTRIAXone IV Push 1 GM VIAL. IVP SCH (08:45)
--- NOTE | 2018-01-08 11:03 | PDOC ---
CLAYTON ROE [employer] 01/08/18 1103: PROGRESS NOTES Diagnosis Problem Problems Medical Problems: (1) Atrial fibrillation with RVR Status: Acute (2) Community acquired bacterial pneumonia Status: Acute (3) Nausea & vomiting Status: Acute Assessment Problems Medical Problems: (1) Atrial fibrillation with RVR Status: Acute (2) Community acquired bacterial pneumonia Status: Acute (3) Nausea & vomiting Status: Acute 1. atrial fibrillation with RVR - Rate controlled on oral cardizem when at rest but significant tachycardia with minimal activity. Change coreg to metoprolol for cardio selectivity and improved rate control. [id number] score =5. Started on warfarin. (warfarin for anticoagulation due to her insurance). Stop lovenox when INR >/= 2. 2. CAP - mgmt per PCP 3. hypertension with history of NICM EF 35% in 2016 - LVEF now normalized. 4. hyperlipidemia - lipids pending. Change zocor to lipitor while on cardizem. 5. diabetes mellitus. - mgmt per PCP Problems: Subjective Continues to be short of breath with cough but feeling better this am. No chest pain or palpitations. Objective tele - atrial fibrillation, RVR with minimal activity Echo The left ventricle is normal size. The left ventricular systolic function is normal and the ejection fraction is within normal range. The Ejection Fraction is 50-55%. The left atrium is mildly dilated. There is no significant aortic valvular stenosis. Doppler and Color Flow revealed trace aortic regurgitation. Doppler and Color-flow revealed trace mitral regurgitation. Doppler and Color Flow revealed mild to moderate tricuspid regurgitation. Vital Signs Date Time Temp Pulse Resp B/P (MAP) Pulse Ox O2 Delivery O2 Flow Rate FiO2 01/08/18 09:01 134 20 120/91 (101) Nasal Cannula 2.0 01/08/18 07:48 97.4 01/08/18 05:25 96 Intake and Output 01/08/18 07:00 Intake Total 2089 ml Output Total 2100 ml Balance -11 ml Intake Oral 1000 ml IV Total 1089 ml Output Urine Total 2100 ml # Voids 1 Abdomen: Normal bowel sounds, Soft Heart: Other (irregular rate and rhythm, no gallops, clicks or rubs) Extremities: No cyanosis, Normal pulses, Other (trace edema) General: Alert, Oriented X3, Cooperative Lungs: Other (improved but continued expiratory wheezing and scattered rhonchi) Neuro: Normal speech, Strength at 5/5 X4 ext Psych/Mental Status: Mental status NL, Mood NL Review of Relevant I have reviewed the following items elisabeth (where applicable) has been applied. Labs Laboratory Tests Test 01/06/18 16:20 01/06/18 16:25 01/06/18 19:18 01/06/18 23:40 White Blood Count 9.2 x10^3/uL (4.0-11.0) Red Blood Count 4.16 x10^6/uL (3.50-5.40) Hemoglobin 13.1 g/dL (12.0-15.5) Hematocrit 38.4 % (36.0-47.0) Mean Corpuscular Volume 92 fL (79-100) Mean Corpuscular Hemoglobin 32 pg (25-35) Mean Corpuscular Hemoglobin Concent 34 g/dL (31-37) Red Cell Distribution Width 13.1 % (11.5-14.5) Platelet Count 105 x10^3/uL (140-400) Neutrophils (%) (Auto) 80 % (31-73) Lymphocytes (%) (Auto) 11 % (24-48) Monocytes (%) (Auto) 8 % (0-9) Eosinophils (%) (Auto) 0 % (0-3) Basophils (%) (Auto) 0 % (0-3) Neutrophils # (Auto) 7.4 x10^3uL (1.8-7.7) Lymphocytes # (Auto) 1.0 x10^3/uL (1.0-4.8) Monocytes # (Auto) 0.8 x10^3/uL (0.0-1.1) Eosinophils # (Auto) 0.0 x10^3/uL (0.0-0.7) Basophils # (Auto) 0.0 x10^3/uL (0.0-0.2) Sodium Level 135 mmol/L (136-145) Potassium Level 4.5 mmol/L (3.5-5.1) Chloride Level 99 mmol/L (98-107) Carbon Dioxide Level 24 mmol/L (21-32) Anion Gap 12 (6-14) Blood Urea Nitrogen 23 mg/dL (7-20) Creatinine 1.1 mg/dL (0.6-1.0) Estimated GFR (Cockcroft-Gault) 48.8 BUN/Creatinine Ratio 21 (6-20) Glucose Level 171 mg/dL (70-99) Calcium Level 9.3 mg/dL (8.5-10.1) Total Bilirubin 1.1 mg/dL (0.2-1.0) Aspartate Amino Transf (AST/SGOT) 32 U/L (15-37) Alanine Aminotransferase (ALT/SGPT) 26 U/L (14-59) Alkaline Phosphatase 84 U/L (46-116) Troponin I Quantitative < 0.017 ng/mL (0-0.055) < 0.017 ng/mL (0-0.055) AQ-Zpi-I-Type Natriuretic Peptide 2314 pg/mL (0-124) Total Protein 7.0 g/dL (6.4-8.2) Albumin 3.2 g/dL (3.4-5.0) Albumin/Globulin Ratio 0.8 (1.0-1.7) Lipase 59 U/L (73-393) Urine Collection Type Unknown Urine Color [place] Urine Clarity Cloudy Urine pH 5.0 Urine Specific [place] 1.020 Urine Protein 100 mg/dl (NEG-TRACE) Urine Glucose (UA) Neg mg/dL (NEG) Urine Ketones (Stick) 15 mg/dL (NEG) Urine Blood Trace (NEG) Urine Nitrite Neg (NEG) Urine Bilirubin Neg (NEG) Urine Urobilinogen Dipstick 0.2 mg/dL (0.2 mg/dL) Urine Leukocyte Esterase Neg (NEG) Urine RBC 0 /HPF (0-2) Urine WBC 5-10 /HPF (0-4) Urine Squamous Epithelial Cells Few /LPF Urine Bacteria Many /HPF (0-FEW) Urine Hyaline Casts Occ /HPF Urine Mucus Slight /LPF Influenza Type A (Rapid) Negative (NEGATIVE) Influenza Type B (Rapid) Negative (NEGATIVE) Nasal Screen MRSA (PCR) Positive (Negative) Test 01/07/18 06:00 01/07/18 15:50 01/07/18 17:03 01/07/18 18:31 White Blood Count 7.0 x10^3/uL (4.0-11.0) Red Blood Count 3.54 x10^6/uL (3.50-5.40) Hemoglobin 11.2 g/dL (12.0-15.5) Hematocrit 32.9 % (36.0-47.0) Mean Corpuscular Volume 93 fL (79-100) Mean Corpuscular Hemoglobin 32 pg (25-35) Mean Corpuscular Hemoglobin Concent 34 g/dL (31-37) Red Cell Distribution Width 13.4 % (11.5-14.5) Platelet Count 90 x10^3/uL (140-400) Neutrophils (%) (Auto) 67 % (31-73) Lymphocytes (%) (Auto) 22 % (24-48) Monocytes (%) (Auto) 11 % (0-9) Eosinophils (%) (Auto) 0 % (0-3) Basophils (%) (Auto) 0 % (0-3) Neutrophils # (Auto) 4.6 x10^3uL (1.8-7.7) Lymphocytes # (Auto) 1.6 x10^3/uL (1.0-4.8) Monocytes # (Auto) 0.7 x10^3/uL (0.0-1.1) Eosinophils # (Auto) 0.0 x10^3/uL (0.0-0.7) Basophils # (Auto) 0.0 x10^3/uL (0.0-0.2) Sodium Level 139 mmol/L (136-145) Potassium Level 3.5 mmol/L (3.5-5.1) Chloride Level 105 mmol/L (98-107) Carbon Dioxide Level 26 mmol/L (21-32) Anion Gap 8 (6-14) Blood Urea Nitrogen 20 mg/dL (7-20) Creatinine 1.0 mg/dL (0.6-1.0) Estimated GFR (Cockcroft-Gault) 54.5 Glucose Level 160 mg/dL (70-99) Calcium Level 8.3 mg/dL (8.5-10.1) Magnesium Level 2.0 mg/dL (1.8-2.4) Troponin I Quantitative 0.018 ng/mL (0-0.055) Prothrombin Time 10.7 SEC (9.4-11.4) Prothromb Time International Ratio 1.0 (0.9-1.1) Glucose (Fingerstick) 397 mg/dL (70-99) 396 mg/dL (70-99) Test 01/07/18 20:27 01/08/18 06:00 01/08/18 07:40 01/08/18 08:15 Glucose (Fingerstick) 338 mg/dL (70-99) 200 mg/dL (70-99) Sodium Level 137 mmol/L (136-145) Potassium Level 4.4 mmol/L (3.5-5.1) Chloride Level 104 mmol/L (98-107) Carbon Dioxide Level 20 mmol/L (21-32) Anion Gap 13 (6-14) Blood Urea Nitrogen 20 mg/dL (7-20) Creatinine 1.0 mg/dL (0.6-1.0) Estimated GFR (Cockcroft-Gault) 54.5 BUN/Creatinine Ratio 20 (6-20) Glucose Level 201 mg/dL (70-99) Calcium Level 8.9 mg/dL (8.5-10.1) Magnesium Level 2.4 mg/dL (1.8-2.4) Total Bilirubin 0.3 mg/dL (0.2-1.0) Aspartate Amino Transf (AST/SGOT) 15 U/L (15-37) Alanine Aminotransferase (ALT/SGPT) 28 U/L (14-59) Alkaline Phosphatase 72 U/L (46-116) Total Protein 5.7 g/dL (6.4-8.2) Albumin 2.8 g/dL (3.4-5.0) Albumin/Globulin Ratio 1.0 (1.0-1.7) White Blood Count 5.1 x10^3/uL (4.0-11.0) Red Blood Count 3.66 x10^6/uL (3.50-5.40) Hemoglobin 11.5 g/dL (12.0-15.5) Hematocrit 34.0 % (36.0-47.0) Mean Corpuscular Volume 93 fL (79-100) Mean Corpuscular Hemoglobin 31 pg (25-35) Mean Corpuscular Hemoglobin Concent 34 g/dL (31-37) Red Cell Distribution Width 13.4 % (11.5-14.5) Platelet Count 134 x10^3/uL (140-400) Neutrophils (%) (Auto) 87 % (31-73) Lymphocytes (%) (Auto) 10 % (24-48) Monocytes (%) (Auto) 3 % (0-9) Eosinophils (%) (Auto) 0 % (0-3) Basophils (%) (Auto) 0 % (0-3) Neutrophils # (Auto) 4.4 x10^3uL (1.8-7.7) Lymphocytes # (Auto) 0.5 x10^3/uL (1.0-4.8) Monocytes # (Auto) 0.2 x10^3/uL (0.0-1.1) Eosinophils # (Auto) 0.0 x10^3/uL (0.0-0.7) Basophils # (Auto) 0.0 x10^3/uL (0.0-0.2) Prothrombin Time 10.2 SEC (9.4-11.4) Prothromb Time International Ratio 1.0 (0.9-1.1) Microbiology 01/06/18 Urine Culture - Preliminary, Resulted 01/06/18 Urine Culture Result 1 (JODIE) - Preliminary, Resulted Medications Current Medications Sodium Chloride 1,000 ml @ 1,000 mls/hr 1X ONCE IV Last administered on at 16:41; Start 01/06/18 at 16:30; Stop 01/06/18 at 17:29; Status DC Ondansetron HCl (Zofran) 4 mg 1X ONCE IV Last administered on 01/06/18at 16:42 ; Start 01/06/18 at 16:45; Stop 01/06/18 at 16:46; Status DC Metoprolol Tartrate (Lopressor Vial) 2.5 mg 1X ONCE IV Last administered on at 17:48; Start 01/06/18 at 17:30; Stop 01/06/18 at 17:31; Status DC Ceftriaxone Sodium 1 gm/ Sodium Chloride 50 ml @ 100 mls/hr 1X ONCE IV ; Start 01/06/18 at 17:30; Stop 01/06/18 at 17:59; Status UNV Azithromycin 500 mg/Sodium Chloride 250 ml @ 250 mls/hr 1X ONCE IV Last administered on 01/06/18at 18:10; Start 01/06/18 at 18:00; Stop 01/06/18 at 18:59 ; Status DC Ceftriaxone Sodium (Rocephin) 1 gm 1X ONCE IVP Last administered on 01/06/18at 17:55; Start 01/06/18 at 18:00; Stop 01/06/18 at 18:01; Status DC Sodium Chloride 250 ml @ As Directed STK-MED ONCE .ROUTE ; Start 01/06/18 at 17 :42; Stop 01/06/18 at 17:43; Status DC Azithromycin (Zithromax) 500 mg STK-MED ONCE IV ; Start 01/06/18 at 17:42; Stop 01/06/18 at 17:43; Status DC Ondansetron HCl (Zofran) 4 mg PRN Q4HRS PRN IV NAUSEA/VOMITING; Start 01/06/18 at 18:15; Stop 01/07/18 at 18:14; Status DC Morphine Sulfate (Morphine 4mg Syringe) 2 mg PRN Q2HR PRN IV PAIN; Start at 18:15; Stop 01/07/18 at 18:14; Status DC Sodium Chloride 1,000 ml @ 125 mls/hr Q8H IV Last administered on 01/07/18at 16 :26; Start 01/06/18 at 18:11; Stop 01/07/18 at 18:10; Status DC Acetaminophen (Tylenol) 650 mg PRN Q4HRS PRN PO FEVER Last administered on 01/07at 07:35; Start 01/06/18 at 18:15; Stop 01/07/18 at 08:23; Status DC Albuterol/ Ipratropium (Duoneb) 3 ml RTQID NEB Last administered on 01/07/18at 15:17; Start 01/06/18 at 20:00; Stop 01/07/18 at 19:59; Status DC Metoprolol Tartrate (Lopressor Vial) 2.5 mg Q6HRS IV Last administered on at 07:36; Start 01/07/18 at 00:00 Diltiazem HCl 100 mg/Dextrose 100 ml @ 5 mls/hr CONT PRN IV SEE I/O RECORD Last administered on 01/07/18at 07:38; Start 01/06/18 at 20:15; Stop 01/08/18 at 07:10; Status DC Enoxaparin Sodium (Lovenox) 40 mg Q24H SQ Last administered on 01/07/18at 20:22 ; Start 01/06/18 at 21:00 Ketorolac Tromethamine (Toradol) 30 mg PRN Q6HRS PRN IV PAIN; Start 01/06/18 at 20:15; Stop 01/11/18 at 20:14 Acetaminophen (Tylenol) 1,000 mg 1X ONCE PO Last administered on 01/06/18at 20: 47; Start 01/06/18 at 20:30; Stop 01/06/18 at 20:31; Status DC Azithromycin (Zithromax) 500 mg DAILY PO Last administered on 01/08/18 07:36; Start 01/07/18 at 09:00 Ceftriaxone Sodium 1 gm/ Sodium Chloride 50 ml @ 100 mls/hr Q24H IV ; Start at 09:00; Status UNV Allopurinol (Zyloprim) 100 mg DAILY PO Last administered on 01/08/18 07:35; Start 01/07/18 at 09:00 Aspirin (Children'S Aspirin) 81 mg DAILY PO Last administered on 01/08/18 07: 34; Start 01/07/18 at 09:00 Docusate Sodium (Colace) 100 mg BID PO Last administered on 01/08/18 07:35; Start 01/06/18 at 21:00 Gabapentin (Neurontin) 100 mg BID PO Last administered on 01/08/18 07:35; Start 01/06/18 at 21:00 Simvastatin (Zocor) 40 mg QHS PO Last administered on 01/07/18 20:23; Start at 21:00 Tramadol HCl (Ultram) 50 mg QID PO Last administered on 01/08/18 07:35; Start 01/06/18 at 21:00 Calcium/Vitamin D (Oscal D 500mg/ 200uts) 1 tab [id number] PO Last administered on 01/08/18 07:35; Start 01/07/18 at 08:00 Vitamin D (Vitamin D3) 2,000 unit DAILY PO Last administered on 01/08/18 07:36 ; Start 01/07/18 at 09:00 Cyanocobalamin (Vitamin B-12) 500 mcg BID PO Last administered on 01/08/18 07: 35; Start 01/06/18 at 21:00 Fish Oil (Fish Oil) 1,000 mg BID PO Last administered on 01/08/18 07:34; Start 01/06/18 at 21:00 Glimepiride (Amaryl) 4 mg BIDWMEALS PO Last administered on 01/08/18at 07:34; Start 01/07/18 at 08:00 Ceftriaxone Sodium (Rocephin) 1 gm DAILY IVP Last administered on 01/08/18at 08: 45; Start 01/07/18 at 09:00 Lactobacillus Rhamnosus (Culturelle) 1 cap BID PO Last administered on at 07:36; Start 01/06/18 at 21:00 Albuterol Sulfate (Ventolin) 2.5 mg STK-MED ONCE .ROUTE ; Start 01/07/18 at 08: 20; Stop 01/07/18 at 08:21; Status DC Albuterol Sulfate (Ventolin) 2.5 mg 1X ONCE NEB ; Start 01/07/18 at 08:45; Stop 01/07/18 at 08:46; Status DC Methylprednisolone Sodium Succinate (SOLU-Medrol 125MG VIAL) 125 mg Q8HRS IV Last administered on 01/08/18at 05:27; Start 01/07/18 at 08:23 Guaifenesin (MUCINEX ER with DM) 1 tab BID PO Last administered on 01/08/18at 07 :35; Start 01/07/18 at 09:00 Acetaminophen (Tylenol) 650 mg PRN Q6HRS PRN PO PAIN / TEMP; Start 01/07/18 at 08:30 Acetaminophen/ Codeine Phosphate (Tylenol/Codeine Soln) 5 ml 1X ONCE PO Last administered on 01/07/18at 09:57; Start 01/07/18 at 08:45; Stop 01/07/18 at 08:46 ; Status DC Diltiazem HCl (Cardizem 24hr Cd) 120 mg DAILY PO Last administered on at 08:45; Start 01/07/18 at 15:00 Warfarin Sodium (Coumadin Per Pharmacy) 1 each PRN DAILY PRN MC SEE COMMENTS Last administered on 01/08/18at 07:46; Start 01/07/18 at 12:45 Warfarin Sodium (Coumadin) 5 mg 1X WARF ONCE PO ; Start 01/08/18 at 17:15; Stop 01/08/18 at 17:15; Status DC Insulin Aspart (NovoLOG) 0-9 UNITS QIDACHS SQ Last administered on 01/08/18at 07 :47; Start 01/07/18 at 17:15 Insulin Aspart (NovoLOG) 20 units 1X ONCE SQ Last administered on 01/07/18at 17 :18; Start 01/07/18 at 17:15; Stop 01/07/18 at 17:16; Status DC Warfarin Sodium (Coumadin) 5 mg 1X WARF ONCE PO Last administered on at 20:23; Start 01/07/18 at 19:00; Stop 01/07/18 at 19:01; Status DC Melatonin 6 mg PRN QHS PRN PO INSOMNIA Last administered on 01/07/18at 20:24; Start 01/07/18 at 20:00 Albuterol/ Ipratropium (Duoneb) 3 ml STK-MED ONCE .ROUTE ; Start 01/08/18 at 05: 04; Stop 01/08/18 at 05:05; Status DC Albuterol/ Ipratropium (Duoneb) 3 ml RTQID NEB ; Start 01/08/18 at 08:00 Albuterol Sulfate (Ventolin) 2.5 mg STK-MED ONCE .ROUTE ; Start 01/08/18 at 08: 00; Stop 01/08/18 at 08:01; Status DC Albuterol Sulfate (Ventolin) 2.5 mg PRN Q4HRS PRN NEB SHORTNESS OF BREATH; Start 01/08/18 at 08:00 Active Scripts Active Reported Melatonin 3 Mg Tablet 3 Mg PO HS Vitamin B12 (Cyanocobalamin (Vitamin B-12)) 5,000 Mcg Tab.rapdis 500 Mcg PO BID Calcium 500 + Vit D 400 Tablet (Calcium Carbonate/Vitamin D3) 1 Each Tablet 1 Each PO DAILY Colace (Docusate Sodium) 100 Mg Capsule 1 Cap PO BID Aspirin 81 Mg Tab.chew 81 Mg PO DAILY Fish Oil 1,200 Mg Fish Oil (Fish Oil/Dha/Epa) 1 Each Capsule 1 Each PO BID Vitamin D (Cholecalciferol (Vitamin D3)) 2,000 Unit Capsule 1 Cap PO DAILY Gabapentin 100 Mg Capsule 100 Mg PO BID Allopurinol 100 Mg Tablet 1 Tab PO DAILY Tramadol Hcl (Tramadol HCl) 50 Mg Tablet 50 Mg PO QID Carvedilol 6.25 Mg Tablet 1 Tab PO BID Glimepiride 4 Mg Tablet 1 Tab PO BID Simvastatin 40 Mg Tablet 1 Tab PO QHS Lisinopril 20 Mg Tablet 1 Tab PO DAILY Vitals/I & O Vital Sign - Last 24 Hours 01/07/18 01/07/18 01/07/18 01/07/18 10:57 11:00 11:17 12:00 Temp 97.9 Pulse 104 Resp 18 B/P (MAP) 114/76 (89) Pulse Ox 95 O2 Delivery Room Air Nasal Cannula Nasal Cannula O2 Flow Rate 2.0 2.0 01/07/18 01/07/18 01/07/18 01/07/18 14:29 15:17 15:32 15:33 Pulse 83 88 Resp 18 B/P (MAP) 103/67 (79) Pulse Ox 95 96 O2 Delivery Nasal Cannula Nasal Cannula Nasal Cannula O2 Flow Rate 2.0 2.0 01/07/18 01/07/18 01/07/18 01/07/18 15:59 16:14 17:00 17:23 Temp 97.4 Pulse 120 Pulse Ox 96 O2 Delivery Nasal Cannula Nasal Cannula O2 Flow Rate 2.0 2.0 01/07/18 01/07/18 01/07/18 01/07/18 18:18 19:00 19:10 20:21 Temp 98.5 Pulse 79 82 Resp 20 18 B/P (MAP) 144/82 (102) 125/71 (89) Pulse Ox 95 95 97 O2 Delivery Nasal Cannula Nasal Cannula Nasal Cannula Nasal Cannula O2 Flow Rate 2.0 2.0 2.0 2.0 01/07/18 01/07/18 01/07/18 01/07/18 20:24 21:05 21:30 22:37 Pulse 94 83 Resp 20 18 18 17 B/P (MAP) 134/77 (96) 140/74 (96) Pulse Ox 96 91 O2 Delivery Nasal Cannula Nasal Cannula Nasal Cannula O2 Flow Rate 2.0 2.0 2.0 2.0 01/07/18 01/08/18 01/08/18 01/08/18 23:40 00:10 02:20 03:00 Pulse 81 79 82 Resp 12 14 16 B/P (MAP) 135/71 (92) 123/69 (87) 126/74 (91) Pulse Ox 95 94 93 O2 Delivery Nasal Cannula Nasal Cannula Nasal Cannula Nasal Cannula O2 Flow Rate 2.0 2.0 2.0 2.0 2/21/18 2/21/18 2/21/18 2/21/18 04:00 04:00 05:25 05:49 Pulse 89 114 Resp 16 20 B/P (MAP) 154/82 (106) 159/94 (115) Pulse Ox 94 96 O2 Delivery Nasal Cannula Nasal Cannula Nasal Cannula Nasal Cannula O2 Flow Rate 2.0 2.0 2.0 2.0 01/08/18 01/08/18 01/08/18 01/08/18 07:36 07:48 08:00 08:35 Temp 97.4 Pulse 80 O2 Delivery Nasal Cannula Room Air O2 Flow Rate 2.0 01/08/18 01/08/18 08:45 09:01 Pulse 135 134 Resp 20 B/P (MAP) 120/91 (101) O2 Delivery Nasal Cannula O2 Flow Rate 2.0 Intake and Output 01/07/18 01/07/18 01/08/18 15:00 23:00 07:00 Intake Total 550 ml 1539 ml Output Total 300 ml 800 ml 1000 ml Balance -300 ml -250 ml 539 ml STEVEN HAYNES MD 01/08/18 1619: PROGRESS NOTES Review of Relevant Pt. seen and examined. Agree with above ARCHITECTURE CONSULTANT note. Will set up for outpt CVN if necessary based on repeat eval in 4 weeks. Supportive care for now. Thanks. CLAYTON ROE APRN Jan 08, 2018 11:03 STEVEN HAYNES MD Jan 08, 2018 16:19
[2018-01-08] MEDS ORDERED: ENOXAPARIN 40 MG/0.4 ML DISP.SYRIN. SQ SCH (11:30)
[2018-01-08] MEDS ORDERED: METOPROLOL TART IMMED RELEASE 25 MG TABLET PO SCH (11:30)
[2018-01-08] MEDS ORDERED: ENOXAPARIN ** NOTE DOSE ** SYRINGE SQ ONE (11:46)
[2018-01-08] MEDS: BISACODYL TAB 5 MG TABLET.DR. PO PRN (13:54)
[2018-01-08] MEDS ORDERED: WARFARIN 5 MG TABLET. PO ONE ×2 (16:00→17:15)
[2018-01-08] MEDS: METOPROLOL TART IMMED RELEASE 50 MG TABLET PO SCH (21:08)
[2018-01-08] MEDS: ENOXAPARIN ** NOTE DOSE ** SYRINGE SQ SCH (21:08)
[2018-01-08] MEDS: ATORVASTATIN CALCIUM 20 MG TABLET PO SCH (21:08)
[2018-01-08] MEDS: MUPIROCIN 2% TOPICAL OINTMENT 22GM TUBE. TP SCH (21:08)
[2018-01-08] MEDS: MELATONIN 3 MG TABLET PO PRN (21:08)
[2018-01-09] VITALS (14 sets, daily range): BP systolic 112–167; BP diastolic 77–103
[2018-01-09] MEDS: methylPREDNISolone SOD SUCC PF 125 MG/2 ML VIAL. IV SCH ×2 (05:40→21:14)
[2018-01-09] MEDS: IPRATRPIUM/ALBUTEROL 0.5/2.5MG 3 ML NEBU. NEB SCH ×4 (06:00→21:47)
[2018-01-09 06:56] LABS: BASO % 0 % (0-3); EOS % 0 % (0-3); HEMATOCRIT 34.5 % (36.0-47.0); HEMOGLOBIN 11.8 g/dL (12.0-15.5); LYMPH # 0.8 x10^3/uL (1.0-4.8); LYMPH % 10 % (24-48); MEAN CORPUSCULAR HEMOGLOBIN 32 pg (25-35); MEAN CORPUSCULAR HGB CONC 34 g/dL (31-37); MEAN CORPUSCULAR VOLUME 92 fL (79-100); MONO # 0.2 x10^3/uL (0.0-1.1); MONO % 3 % (0-9); NEUT # 6.8 x10^3uL (1.8-7.7); NEUT % 87 % (31-73); PLATELET COUNT 181 x10^3/uL (140-400); RED BLOOD COUNT 3.73 x10^6/uL (3.50-5.40); RED CELL DISTRIBUTION WIDTH 13.4 % (11.5-14.5); WHITE BLOOD COUNT 7.8 x10^3/uL (4.0-11.0)
[2018-01-09 07:17] LABS: ALBUMIN 2.8 g/dL (3.4-5.0); ALBUMIN/GLOBULIN RATIO 0.8 (1.0-1.7); CALCIUM 9.3 mg/dL (8.5-10.1); CREATININE 1.1 mg/dL (0.6-1.0); GFR 48.8; MAGNESIUM 2.4 mg/dL (1.8-2.4); POTASSIUM 4.2 mmol/L (3.5-5.1); TOTAL BILIRUBIN 0.3 mg/dL (0.2-1.0); TOTAL PROTEIN 6.1 g/dL (6.4-8.2)
[2018-01-09] MEDS: OMEGA-3 FATTY ACIDS/FISH OIL 1,000 MG CAPSULE. PO SCH ×2 (07:30→21:14)
[2018-01-09] MEDS: GABAPENTIN 100 MG CAPSULE. PO SCH ×2 (07:30→21:14)
[2018-01-09] MEDS: CYANOCOBALAMIN (VITAMIN B-12) 250 MCG TABLET PO SCH ×2 (07:30→21:16)
[2018-01-09] MEDS: BISACODYL TAB 5 MG TABLET.DR. PO PRN (07:30)
[2018-01-09] MEDS: ALLOPURINOL 100 MG TABLET. PO SCH (07:31)
[2018-01-09] MEDS: METOPROLOL TART IMMED RELEASE 50 MG TABLET PO SCH ×2 (07:31→21:15)
[2018-01-09] MEDS: GLIMEPIRIDE 2 MG TABLET PO SCH ×2 (07:31→16:35)
[2018-01-09] MEDS: AZITHROMYCIN 250 MG TABLET. PO SCH (07:31)
[2018-01-09] MEDS: CALCIUM CARB/VIT D3 500/200 TABLET PO SCH (07:31)
[2018-01-09] MEDS: ASPIRIN 81 MG TAB.CHEW PO SCH (07:31)
[2018-01-09] MEDS: traMADol 50 MG TABLET PO SCH ×4 (07:32→21:13)
[2018-01-09] MEDS: DOCUSATE SODIUM 100 MG CAPSULE PO SCH ×2 (07:32→21:15)
[2018-01-09] MEDS: guaiFENesin DM 600/30MG 1 TAB TAB.ER.12H PO SCH ×2 (07:32→21:15)
[2018-01-09] MEDS: LACTOBACILLUS RHAMNOSUS GG 1 CAPSULE. PO SCH ×2 (07:32→21:13)
[2018-01-09] MEDS: CHOLECALCIFEROL (VITAMIN D3) 1,000 UNIT TABLET PO SCH (07:32)
[2018-01-09] MEDS: ENOXAPARIN ** NOTE DOSE ** SYRINGE SQ SCH ×2 (07:33→21:15)
[2018-01-09] MEDS: MUPIROCIN 2% TOPICAL OINTMENT 22GM TUBE. TP SCH ×2 (07:33→21:16)
[2018-01-09] MEDS: INSULIN ASPART 300 UNITS/3 ML INSULN.PEN SQ SCH ×4 (07:35→21:30)
[2018-01-09] MEDS: cefTRIAXone IV Push 1 GM VIAL. IVP SCH (07:35)
--- NOTE | 2018-01-09 09:07 | PDOC ---
PROGRESS NOTES Diagnosis Problem Problems Medical Problems: (1) Atrial fibrillation with RVR Status: Acute (2) Community acquired bacterial pneumonia Status: Acute (3) Nausea & vomiting Status: Acute Assessment Problems Medical Problems: (1) Atrial fibrillation with RVR Status: Acute (2) Community acquired bacterial pneumonia Status: Acute (3) Nausea & vomiting Status: Acute 1. atrial fibrillation with RVR - Fair rate control, continues to become tachycardic with minimal activity. Improved with addition of metoprolol. Dose increased last night. Continue to monitor. Plan for 4 week follow up and re- evaluation prior to possible ECV. Continue warfarin for stroke prophylaxis. May need lovenox outpatient until INR >/=2. 2. CAP - mgmt per PCP 3. hypertension with history of NICM EF 35% in 2016 - LVEF now normalized. Continue current medications. 4. hyperlipidemia - LDL controlled. Low HDL. Continue lipitor. encourage exercise, consider Niacin. follow up outpatient. 5. diabetes mellitus. - mgmt per PCP Problems: Subjective feeling better, breathing improving. no chest pain, no lightheadedness, no palpitations. Objective Vital Signs Date Time Temp Pulse Resp B/P (MAP) Pulse Ox O2 Delivery O2 Flow Rate FiO2 01/09/18 08:32 Room Air 01/09/18 08:00 2.0 01/09/18 07:32 88 01/09/18 07:17 97.8 01/09/18 05:45 18 149/94 (112) 94 Intake and Output 01/09/18 07:00 Intake Total 1580 ml Output Total 550 ml Balance 1030 ml Intake Oral 1580 ml Output Urine Total 550 ml # Voids 5 Abdomen: Normal bowel sounds, Soft, No tenderness Heart: Other (irregular rate and rhythm, no gallops, clicks or rubs) Extremities: No cyanosis, Normal pulses, Other (trace edema) General: Alert, Oriented X3, Cooperative, No acute distress HEENT: Atraumatic, EOMI Lungs: Other (decreased bilaterally, few scattered wheezes) Neuro: Normal speech, Strength at 5/5 X4 ext Psych/Mental Status: Mental status NL, Mood NL Review of Relevant I have reviewed the following items elisabeth (where applicable) has been applied. Labs Laboratory Tests Test 01/07/18 15:50 01/07/18 17:03 01/07/18 18:31 01/07/18 20:27 Prothrombin Time 10.7 SEC (9.4-11.4) Prothromb Time International Ratio 1.0 (0.9-1.1) Glucose (Fingerstick) 397 mg/dL (70-99) 396 mg/dL (70-99) 338 mg/dL (70-99) Test 01/08/18 06:00 01/08/18 07:40 01/08/18 08:15 01/08/18 11:37 Sodium Level 137 mmol/L (136-145) Potassium Level 4.4 mmol/L (3.5-5.1) Chloride Level 104 mmol/L (98-107) Carbon Dioxide Level 20 mmol/L (21-32) Anion Gap 13 (6-14) Blood Urea Nitrogen 20 mg/dL (7-20) Creatinine 1.0 mg/dL (0.6-1.0) Estimated GFR (Cockcroft-Gault) 54.5 BUN/Creatinine Ratio 20 (6-20) Glucose Level 201 mg/dL (70-99) Calcium Level 8.9 mg/dL (8.5-10.1) Magnesium Level 2.4 mg/dL (1.8-2.4) Total Bilirubin 0.3 mg/dL (0.2-1.0) Aspartate Amino Transf (AST/SGOT) 15 U/L (15-37) Alanine Aminotransferase (ALT/SGPT) 28 U/L (14-59) Alkaline Phosphatase 72 U/L (46-116) Total Protein 5.7 g/dL (6.4-8.2) Albumin 2.8 g/dL (3.4-5.0) Albumin/Globulin Ratio 1.0 (1.0-1.7) Glucose (Fingerstick) 200 mg/dL (70-99) 334 mg/dL (70-99) White Blood Count 5.1 x10^3/uL (4.0-11.0) Red Blood Count 3.66 x10^6/uL (3.50-5.40) Hemoglobin 11.5 g/dL (12.0-15.5) Hematocrit 34.0 % (36.0-47.0) Mean Corpuscular Volume 93 fL (79-100) Mean Corpuscular Hemoglobin 31 pg (25-35) Mean Corpuscular Hemoglobin Concent 34 g/dL (31-37) Red Cell Distribution Width 13.4 % (11.5-14.5) Platelet Count 134 x10^3/uL (140-400) Neutrophils (%) (Auto) 87 % (31-73) Lymphocytes (%) (Auto) 10 % (24-48) Monocytes (%) (Auto) 3 % (0-9) Eosinophils (%) (Auto) 0 % (0-3) Basophils (%) (Auto) 0 % (0-3) Neutrophils # (Auto) 4.4 x10^3uL (1.8-7.7) Lymphocytes # (Auto) 0.5 x10^3/uL (1.0-4.8) Monocytes # (Auto) 0.2 x10^3/uL (0.0-1.1) Eosinophils # (Auto) 0.0 x10^3/uL (0.0-0.7) Basophils # (Auto) 0.0 x10^3/uL (0.0-0.2) Prothrombin Time 10.2 SEC (9.4-11.4) Prothromb Time International Ratio 1.0 (0.9-1.1) Test 01/08/18 16:17 01/08/18 20:34 01/09/18 05:50 01/09/18 07:29 Glucose (Fingerstick) 211 mg/dL (70-99) 201 mg/dL (70-99) 245 mg/dL (70-99) White Blood Count 7.8 x10^3/uL (4.0-11.0) Red Blood Count 3.73 x10^6/uL (3.50-5.40) Hemoglobin 11.8 g/dL (12.0-15.5) Hematocrit 34.5 % (36.0-47.0) Mean Corpuscular Volume 92 fL (79-100) Mean Corpuscular Hemoglobin 32 pg (25-35) Mean Corpuscular Hemoglobin Concent 34 g/dL (31-37) Red Cell Distribution Width 13.4 % (11.5-14.5) Platelet Count 181 x10^3/uL (140-400) Neutrophils (%) (Auto) 87 % (31-73) Lymphocytes (%) (Auto) 10 % (24-48) Monocytes (%) (Auto) 3 % (0-9) Eosinophils (%) (Auto) 0 % (0-3) Basophils (%) (Auto) 0 % (0-3) Neutrophils # (Auto) 6.8 x10^3uL (1.8-7.7) Lymphocytes # (Auto) 0.8 x10^3/uL (1.0-4.8) Monocytes # (Auto) 0.2 x10^3/uL (0.0-1.1) Eosinophils # (Auto) 0.0 x10^3/uL (0.0-0.7) Basophils # (Auto) 0.0 x10^3/uL (0.0-0.2) Prothrombin Time 11.0 SEC (9.4-11.4) Prothromb Time International Ratio 1.1 (0.9-1.1) Sodium Level 136 mmol/L (136-145) Potassium Level 4.2 mmol/L (3.5-5.1) Chloride Level 105 mmol/L (98-107) Carbon Dioxide Level 21 mmol/L (21-32) Anion Gap 10 (6-14) Blood Urea Nitrogen 26 mg/dL (7-20) Creatinine 1.1 mg/dL (0.6-1.0) Estimated GFR (Cockcroft-Gault) 48.8 BUN/Creatinine Ratio 24 (6-20) Glucose Level 247 mg/dL (70-99) Calcium Level 9.3 mg/dL (8.5-10.1) Magnesium Level 2.4 mg/dL (1.8-2.4) Total Bilirubin 0.3 mg/dL (0.2-1.0) Aspartate Amino Transf (AST/SGOT) 20 U/L (15-37) Alanine Aminotransferase (ALT/SGPT) 42 U/L (14-59) Alkaline Phosphatase 72 U/L (46-116) Total Protein 6.1 g/dL (6.4-8.2) Albumin 2.8 g/dL (3.4-5.0) Albumin/Globulin Ratio 0.8 (1.0-1.7) Microbiology 01/08/18 Blood Culture - Preliminary, Resulted NO GROWTH AFTER 1 DAY 01/06/18 Urine Culture - Final, Complete 01/06/18 Urine Culture Result 1 (JODIE) - Final, Complete 01/06/18 Antimicrobic Susceptibility - Final, Complete Medications Current Medications Sodium Chloride 1,000 ml @ 1,000 mls/hr 1X ONCE IV Last administered on at 16:41; Start 01/06/18 at 16:30; Stop 01/06/18 at 17:29; Status DC Ondansetron HCl (Zofran) 4 mg 1X ONCE IV Last administered on 01/06/18at 16:42 ; Start 01/06/18 at 16:45; Stop 01/06/18 at 16:46; Status DC Metoprolol Tartrate (Lopressor Vial) 2.5 mg 1X ONCE IV Last administered on at 17:48; Start 01/06/18 at 17:30; Stop 01/06/18 at 17:31; Status DC Ceftriaxone Sodium 1 gm/ Sodium Chloride 50 ml @ 100 mls/hr 1X ONCE IV ; Start 01/06/18 at 17:30; Stop 01/06/18 at 17:59; Status UNV Azithromycin 500 mg/Sodium Chloride 250 ml @ 250 mls/hr 1X ONCE IV Last administered on 01/06/18at 18:10; Start 01/06/18 at 18:00; Stop 01/06/18 at 18:59 ; Status DC Ceftriaxone Sodium (Rocephin) 1 gm 1X ONCE IVP Last administered on 01/06/18at 17:55; Start 01/06/18 at 18:00; Stop 01/06/18 at 18:01; Status DC Sodium Chloride 250 ml @ As Directed STK-MED ONCE .ROUTE ; Start 01/06/18 at 17 :42; Stop 01/06/18 at 17:43; Status DC Azithromycin (Zithromax) 500 mg STK-MED ONCE IV ; Start 01/06/18 at 17:42; Stop 01/06/18 at 17:43; Status DC Ondansetron HCl (Zofran) 4 mg PRN Q4HRS PRN IV NAUSEA/VOMITING; Start 01/06/18 at 18:15; Stop 01/07/18 at 18:14; Status DC Morphine Sulfate (Morphine 4mg Syringe) 2 mg PRN Q2HR PRN IV PAIN; Start at 18:15; Stop 01/07/18 at 18:14; Status DC Sodium Chloride 1,000 ml @ 125 mls/hr Q8H IV Last administered on 01/07/18at 16 :26; Start 01/06/18 at 18:11; Stop 01/07/18 at 18:10; Status DC Acetaminophen (Tylenol) 650 mg PRN Q4HRS PRN PO FEVER Last administered on 01/07at 07:35; Start 01/06/18 at 18:15; Stop 01/07/18 at 08:23; Status DC Albuterol/ Ipratropium (Duoneb) 3 ml RTQID NEB Last administered on 01/07/18at 15:17; Start 01/06/18 at 20:00; Stop 01/07/18 at 19:59; Status DC Metoprolol Tartrate (Lopressor Vial) 2.5 mg Q6HRS IV Last administered on at 07:36; Start 01/07/18 at 00:00; Stop 01/08/18 at 17:20; Status DC Diltiazem HCl 100 mg/Dextrose 100 ml @ 5 mls/hr CONT PRN IV SEE I/O RECORD Last administered on 01/07/18at 07:38; Start 01/06/18 at 20:15; Stop 01/08/18 at 07:10; Status DC Enoxaparin Sodium (Lovenox) 40 mg Q24H SQ Last administered on 01/07/18at 20:22 ; Start 01/06/18 at 21:00; Stop 01/08/18 at 11:01; Status DC Ketorolac Tromethamine (Toradol) 30 mg PRN Q6HRS PRN IV PAIN; Start 01/06/18 at 20:15; Stop 01/11/18 at 20:14 Acetaminophen (Tylenol) 1,000 mg 1X ONCE PO Last administered on 01/06/18at 20: 47; Start 01/06/18 at 20:30; Stop 01/06/18 at 20:31; Status DC Azithromycin (Zithromax) 500 mg DAILY PO Last administered on 01/09/18at 07:31; Start 01/07/18 at 09:00 Ceftriaxone Sodium 1 gm/ Sodium Chloride 50 ml @ 100 mls/hr Q24H IV ; Start at 09:00; Status UNV Allopurinol (Zyloprim) 100 mg DAILY PO Last administered on 01/09/18 07:31; Start 01/07/18 at 09:00 Aspirin (Children'S Aspirin) 81 mg DAILY PO Last administered on 01/09/18 07: 31; Start 01/07/18 at 09:00 Docusate Sodium (Colace) 100 mg BID PO Last administered on 01/09/18 07:32; Start 01/06/18 at 21:00 Gabapentin (Neurontin) 100 mg BID PO Last administered on 01/09/18 07:30; Start 01/06/18 at 21:00 Simvastatin (Zocor) 40 mg QHS PO Last administered on 01/07/18 20:23; Start at 21:00; Stop 01/08/18 at 11:04; Status DC Tramadol HCl (Ultram) 50 mg QID PO Last administered on 01/09/18 07:32; Start 01/06/18 at 21:00 Calcium/Vitamin D (Oscal D 500mg/ 200uts) 1 tab [id number] PO Last administered on 01/09/18 07:31; Start 01/07/18 at 08:00 Vitamin D (Vitamin D3) 2,000 unit DAILY PO Last administered on 01/09/18 07:32 ; Start 01/07/18 at 09:00 Cyanocobalamin (Vitamin B-12) 500 mcg BID PO Last administered on 01/09/18 07: 30; Start 01/06/18 at 21:00 Fish Oil (Fish Oil) 1,000 mg BID PO Last administered on 01/09/18 07:30; Start 01/06/18 at 21:00 Glimepiride (Amaryl) 4 mg BIDWMEALS PO Last administered on 01/09/18 07:31; Start 01/07/18 at 08:00 Ceftriaxone Sodium (Rocephin) 1 gm DAILY IVP Last administered on 01/09/18 07: 35; Start 01/07/18 at 09:00 Lactobacillus Rhamnosus (Culturelle) 1 cap BID PO Last administered on 07:32; Start 01/06/18 at 21:00 Albuterol Sulfate (Ventolin) 2.5 mg STK-MED ONCE .ROUTE ; Start 01/07/18 at 08: 20; Stop 01/07/18 at 08:21; Status DC Albuterol Sulfate (Ventolin) 2.5 mg 1X ONCE NEB ; Start 01/07/18 at 08:45; Stop 01/07/18 at 08:46; Status DC Methylprednisolone Sodium Succinate (SOLU-Medrol 125MG VIAL) 125 mg Q8HRS IV Last administered on 01/09/18at 05:40; Start 01/07/18 at 08:23 Guaifenesin (MUCINEX ER with DM) 1 tab BID PO Last administered on 01/09/18at 07 :32; Start 01/07/18 at 09:00 Acetaminophen (Tylenol) 650 mg PRN Q6HRS PRN PO PAIN / TEMP; Start 01/07/18 at 08:30 Acetaminophen/ Codeine Phosphate (Tylenol/Codeine Soln) 5 ml 1X ONCE PO Last administered on 01/07/18at 09:57; Start 01/07/18 at 08:45; Stop 01/07/18 at 08:46 ; Status DC Diltiazem HCl (Cardizem 24hr Cd) 120 mg DAILY PO Last administered on at 07:32; Start 01/07/18 at 15:00 Warfarin Sodium (Coumadin Per Pharmacy) 1 each PRN DAILY PRN MC SEE COMMENTS Last administered on 01/08/18at 13:19; Start 01/07/18 at 12:45 Warfarin Sodium (Coumadin) 5 mg 1X WARF ONCE PO ; Start 01/08/18 at 17:15; Stop 01/08/18 at 17:15; Status DC Insulin Aspart (NovoLOG) 0-9 UNITS QIDACHS SQ Last administered on 01/09/18at 07 :35; Start 01/07/18 at 17:15 Insulin Aspart (NovoLOG) 20 units 1X ONCE SQ Last administered on 01/07/18at 17 :18; Start 01/07/18 at 17:15; Stop 01/07/18 at 17:16; Status DC Warfarin Sodium (Coumadin) 5 mg 1X WARF ONCE PO Last administered on at 20:23; Start 01/07/18 at 19:00; Stop 01/07/18 at 19:01; Status DC Melatonin 6 mg PRN QHS PRN PO INSOMNIA Last administered on 01/08/18at 21:08; Start 01/07/18 at 20:00 Albuterol/ Ipratropium (Duoneb) 3 ml STK-MED ONCE .ROUTE ; Start 01/08/18 at 05: 04; Stop 01/08/18 at 05:05; Status DC Albuterol/ Ipratropium (Duoneb) 3 ml RTQID NEB Last administered on 01/09/18at 06:00; Start 01/08/18 at 08:00 Albuterol Sulfate (Ventolin) 2.5 mg STK-MED ONCE .ROUTE ; Start 01/08/18 at 08: 00; Stop 01/08/18 at 08:01; Status DC Albuterol Sulfate (Ventolin) 2.5 mg PRN Q4HRS PRN NEB SHORTNESS OF BREATH; Start 01/08/18 at 08:00 Enoxaparin Sodium (Lovenox) 80 mg BID SQ ; Start 01/08/18 at 11:30; Stop at 12:04; Status DC Metoprolol Tartrate (Lopressor) 25 mg BID PO Last administered on 01/08/18at 11: 49; Start 01/08/18 at 11:30; Stop 01/08/18 at 17:17; Status DC Atorvastatin Calcium (Lipitor) 20 mg QHS PO Last administered on 01/08/18at 21: 08; Start 01/08/18 at 21:00 Enoxaparin Sodium (Lovenox 100mg Syringe) 100 mg STK-MED ONCE SQ Last administered on 01/08/18at 11:49; Start 01/08/18 at 11:46; Stop 01/08/18 at 11:47 ; Status DC Enoxaparin Sodium (Lovenox 80mg Syringe) 80 mg BID SQ Last administered on 01/09at 07:33; Start 01/08/18 at 12:04 Warfarin Sodium (Coumadin) 5 mg 1X WARF ONCE PO Last administered on at 16:43; Start 01/08/18 at 16:00; Stop 01/08/18 at 16:01; Status DC Bisacodyl (Dulcolax Tab) 10 mg PRN DAILY PRN PO CONSTIPATION Last administered on 01/09/18at 07:30; Start 01/08/18 at 13:45 Metoprolol Tartrate (Lopressor) 50 mg BID PO Last administered on 01/09/18at 07: 31; Start 01/08/18 at 21:00 Mupirocin (Bactroban) 1 diaz BID TP Last administered on 01/09/18at 07:33; Start 01/08/18 at 21:00 Active Scripts Active Reported Melatonin 3 Mg Tablet 3 Mg PO HS Vitamin B12 (Cyanocobalamin (Vitamin B-12)) 5,000 Mcg Tab.rapdis 500 Mcg PO BID Calcium 500 + Vit D 400 Tablet (Calcium Carbonate/Vitamin D3) 1 Each Tablet 1 Each PO DAILY Colace (Docusate Sodium) 100 Mg Capsule 1 Cap PO BID Aspirin 81 Mg Tab.chew 81 Mg PO DAILY Fish Oil 1,200 Mg Fish Oil (Fish Oil/Dha/Epa) 1 Each Capsule 1 Each PO BID Vitamin D (Cholecalciferol (Vitamin D3)) 2,000 Unit Capsule 1 Cap PO DAILY Gabapentin 100 Mg Capsule 100 Mg PO BID Allopurinol 100 Mg Tablet 1 Tab PO DAILY Tramadol Hcl (Tramadol HCl) 50 Mg Tablet 50 Mg PO QID Carvedilol 6.25 Mg Tablet 1 Tab PO BID Glimepiride 4 Mg Tablet 1 Tab PO BID Simvastatin 40 Mg Tablet 1 Tab PO QHS Lisinopril 20 Mg Tablet 1 Tab PO DAILY Vitals/I & O Vital Sign - Last 24 Hours 01/08/18 01/08/18 01/08/18 01/08/18 10:00 11:00 11:29 11:49 Temp 97.6 Pulse 102 100 Resp 18 B/P (MAP) 128/72 (90) O2 Delivery Nasal Cannula Nasal Cannula O2 Flow Rate 2.0 2.0 01/08/18 01/08/18 01/08/18 01/08/18 12:06 13:00 14:00 14:49 Temp 97.3 Pulse 97 88 86 Resp 18 20 20 B/P (MAP) 114/78 (90) 138/82 (100) 122/65 (84) Pulse Ox 95 96 97 O2 Delivery Nasal Cannula Nasal Cannula Nasal Cannula O2 Flow Rate 2.0 2.0 2.0 01/08/18 01/08/18 01/08/18 01/08/18 15:26 16:00 16:44 17:56 Temp 97.8 Pulse 72 Resp 16 B/P (MAP) 130/80 (97) Pulse Ox 95 96 O2 Delivery Room Air Nasal Cannula Nasal Cannula O2 Flow Rate 2.0 2.0 01/08/18 01/08/18 01/08/18 01/08/18 19:25 19:25 20:05 20:45 Pulse 104 102 90 Resp 16 18 18 B/P (MAP) 157/90 (112) 147/89 (108) 119/82 (94) Pulse Ox 94 93 95 O2 Delivery Room Air Room Air Room Air Nasal Cannula O2 Flow Rate 2.0 01/08/18 01/08/18 01/08/18 01/08/18 21:08 21:09 21:28 21:55 Pulse 90 113 Resp 18 18 B/P (MAP) 119/82 165/89 (114) Pulse Ox 93 95 O2 Delivery Room Air Room Air Nasal Cannula O2 Flow Rate 2.0 2.0 01/08/18 01/08/18 01/08/18 01/09/18 22:15 23:20 23:25 01:00 Temp 98.1 Pulse 97 93 Resp 18 18 18 B/P (MAP) 148/85 (106) 159/88 (111) Pulse Ox 93 93 O2 Delivery Nasal Cannula Nasal Cannula Nasal Cannula O2 Flow Rate 2.0 2.0 2.0 2.0 01/09/18 01/09/18 01/09/18 01/09/18 02:35 03:50 03:50 04:55 Pulse 104 92 81 Resp 18 18 16 B/P (MAP) 155/81 (105) 112/84 (93) 156/87 (110) Pulse Ox 95 95 93 O2 Delivery Nasal Cannula Nasal Cannula Nasal Cannula Nasal Cannula O2 Flow Rate 2.0 2.0 2.0 2.0 01/09/18 01/09/18 01/09/18 01/09/18 05:12 05:45 07:17 07:31 Temp 97.6 97.8 Pulse 117 80 Resp 18 B/P (MAP) 149/94 (112) Pulse Ox 93 94 O2 Delivery Room Air Nasal Cannula O2 Flow Rate 2.0 01/09/18 01/09/18 01/09/18 07:32 08:00 08:32 Pulse 88 O2 Delivery Nasal Cannula Room Air O2 Flow Rate 2.0 Intake and Output 01/08/18 01/08/18 01/09/18 15:00 23:00 07:00 Intake Total 400 ml 980 ml 200 ml Output Total 300 ml 250 ml Balance 100 ml 730 ml 200 ml CLAYTON ROE APRN Jan 09, 2018 09:07
--- NOTE | 2018-01-09 10:02 | RAD ---
Chest, 2 views, 01/09/2018: History: Bronchitis and pneumonia Comparison is made to a study from 01/06/2018. The heart size and pulmonary vascularity are normal. There is calcific plaquing and tortuosity of the thoracic aorta. The left chest remains clear. There are mild persistent patchy right lung opacities in the right base and right parahilar regions similar to those seen on the previous study. No pleural fluid is evident. Moderate spurring is present in the spine. Bilateral shoulder prostheses are in place. IMPRESSION: Mild unchanged patchy right lung infiltrates suggesting pneumonia.
--- NOTE | 2018-01-09 10:56 | PN ---
DATE: 01/09/2018 PROBLEMS: 1. Atrial fibrillation with rapid ventricular response. 2. Community-acquired pneumonia. 3. Nausea and vomiting, which has resolved. 4. Acute exacerbation of chronic obstructive pulmonary disease. 5. Hyperglycemia from steroids. 6. Moderate protein malnutrition. 7. Urinary tract infection with E. coli. SUBJECTIVE: Feeling a little bit better today, still according to her not out of the kent yet. Breathing is a little bit better. Cardiology has discussed with her getting cardioverted in about a month after she has been anticoagulated for about a month. She started on Coumadin, continues on Lovenox. OBJECTIVE: VITAL SIGNS: Pulse ox 93% on 2 liters, blood pressure 149/102, pulse 105. GENERAL: Sitting up, not short of breath with speaking, but is still short of breath exertion. LUNGS: With coarse breath sounds, not wheezing, but better air movement. CARDIOVASCULAR: irregular rhythm and rate consistent with AFib. ABDOMEN: Soft, nontender. EXTREMITIES: Without edema. PLAN: Also noted elevated blood pressure and we will check others throughout the day. We will decrease steroids, continue antibiotics. STEVIE SLAUGHTER DO DR: CARLY/pamela JOB#: [id number] / [id number]
[2018-01-09] MEDS ORDERED: MAGNESIUM CITRATE 296 ML SOLUTION. PO PRN (12:15)
[2018-01-09] MEDS ORDERED: WARFARIN 7.5 MG TABLET. PO ONE (16:00)
[2018-01-09] MEDS: ATORVASTATIN CALCIUM 20 MG TABLET PO SCH (21:13)
[2018-01-09] MEDS: MELATONIN 3 MG TABLET PO PRN (21:15)
[2018-01-10] VITALS: BP 162/90
[2018-01-10 02:00] VITALS: BP 174/97
[2018-01-10 04:00] VITALS: BP 164/88
[2018-01-10] MEDS: IPRATRPIUM/ALBUTEROL 0.5/2.5MG 3 ML NEBU. NEB SCH ×2 (05:58→09:36)
[2018-01-10 06:00] VITALS: BP 155/87
[2018-01-10 07:34] LABS: BASO % 0 % (0-3); EOS % 0 % (0-3); HEMATOCRIT 34.6 % (36.0-47.0); HEMOGLOBIN 11.6 g/dL (12.0-15.5); LYMPH # 0.6 x10^3/uL (1.0-4.8); LYMPH % 8 % (24-48); MEAN CORPUSCULAR HEMOGLOBIN 31 pg (25-35); MEAN CORPUSCULAR HGB CONC 34 g/dL (31-37); MEAN CORPUSCULAR VOLUME 93 fL (79-100); MONO # 0.2 x10^3/uL (0.0-1.1); MONO % 3 % (0-9); NEUT # 6.4 x10^3uL (1.8-7.7); NEUT % 89 % (31-73); PLATELET COUNT 221 x10^3/uL (140-400); RED BLOOD COUNT 3.72 x10^6/uL (3.50-5.40); RED CELL DISTRIBUTION WIDTH 13.6 % (11.5-14.5); WHITE BLOOD COUNT 7.2 x10^3/uL (4.0-11.0)
[2018-01-10] MEDS ORDERED: SENNOSIDES/DOCUSATE 8.6/50MG TABLET. PO PRN (07:45)
[2018-01-10 08:12] LABS: ALBUMIN 2.8 g/dL (3.4-5.0); ALBUMIN/GLOBULIN RATIO 0.9 (1.0-1.7); CALCIUM 9.4 mg/dL (8.5-10.1); CREATININE 1.1 mg/dL (0.6-1.0); GFR 48.8; MAGNESIUM 2.6 mg/dL (1.8-2.4); TOTAL BILIRUBIN 0.3 mg/dL (0.2-1.0); TOTAL PROTEIN 5.9 g/dL (6.4-8.2)
--- NOTE | 2018-01-10 08:21 | PDOC ---
PROGRESS NOTES Diagnosis Problem Problems Medical Problems: (1) Atrial fibrillation with RVR Status: Acute (2) Community acquired bacterial pneumonia Status: Acute (3) Nausea & vomiting Status: Acute Assessment Problems Medical Problems: (1) Atrial fibrillation with RVR Status: Acute (2) Community acquired bacterial pneumonia Status: Acute (3) Nausea & vomiting Status: Acute 1. atrial fibrillation with RVR - Fair rate control, continues to become tachycardic with minimal activity. Improved with addition of metoprolol. Plan for 4 week follow up and re-evaluation prior to possible ECV. Changed to Eliquis for stroke prophylaxis as INR remained 1 after several days of warfarin. 3. hypertension with history of NICM EF 35% in 2016 - LVEF now normalized. Continue current medications. 4. hyperlipidemia - LDL controlled. Low HDL. Continue lipitor. encourage exercise, consider Niacin. follow up outpatient. 5. diabetes mellitus. - mgmt per PCP Problems: Subjective feeling much better, no chest pain, no palpitations, dyspnea improved. no lightheadedness or syncope. Objective Vital Signs Date Time Temp Pulse Resp B/P (MAP) Pulse Ox O2 Delivery O2 Flow Rate FiO2 01/10/18 06:00 94 20 155/87 (109) 93 Room Air 01/10/18 04:00 2.0 01/10/18 02:00 97.7 Intake and Output 01/10/18 06:59 Intake Total 1560 ml Balance 1560 ml Intake Oral 1560 ml # Voids 7 Abdomen: Normal bowel sounds, Soft, No tenderness Heart: Other (irregular rate and rhythm, no gallops, clicks or rubs) Extremities: No cyanosis, No edema, Normal pulses General: Alert, Oriented X3, Cooperative, No acute distress HEENT: Atraumatic, EOMI, Mucous membr. moist/pink Lungs: Other (coarse bases otherwise clear) Neck: No JVD Neuro: Normal speech, Strength at 5/5 X4 ext Psych/Mental Status: Mental status NL, Mood NL Review of Relevant I have reviewed the following items elisabeth (where applicable) has been applied. Labs Laboratory Tests Test 01/08/18 11:37 01/08/18 16:17 01/08/18 20:34 01/09/18 05:50 Glucose (Fingerstick) 334 mg/dL (70-99) 211 mg/dL (70-99) 201 mg/dL (70-99) White Blood Count 7.8 x10^3/uL (4.0-11.0) Red Blood Count 3.73 x10^6/uL (3.50-5.40) Hemoglobin 11.8 g/dL (12.0-15.5) Hematocrit 34.5 % (36.0-47.0) Mean Corpuscular Volume 92 fL (79-100) Mean Corpuscular Hemoglobin 32 pg (25-35) Mean Corpuscular Hemoglobin Concent 34 g/dL (31-37) Red Cell Distribution Width 13.4 % (11.5-14.5) Platelet Count 181 x10^3/uL (140-400) Neutrophils (%) (Auto) 87 % (31-73) Lymphocytes (%) (Auto) 10 % (24-48) Monocytes (%) (Auto) 3 % (0-9) Eosinophils (%) (Auto) 0 % (0-3) Basophils (%) (Auto) 0 % (0-3) Neutrophils # (Auto) 6.8 x10^3uL (1.8-7.7) Lymphocytes # (Auto) 0.8 x10^3/uL (1.0-4.8) Monocytes # (Auto) 0.2 x10^3/uL (0.0-1.1) Eosinophils # (Auto) 0.0 x10^3/uL (0.0-0.7) Basophils # (Auto) 0.0 x10^3/uL (0.0-0.2) Prothrombin Time 11.0 SEC (9.4-11.4) Prothromb Time International Ratio 1.1 (0.9-1.1) Sodium Level 136 mmol/L (136-145) Potassium Level 4.2 mmol/L (3.5-5.1) Chloride Level 105 mmol/L (98-107) Carbon Dioxide Level 21 mmol/L (21-32) Anion Gap 10 (6-14) Blood Urea Nitrogen 26 mg/dL (7-20) Creatinine 1.1 mg/dL (0.6-1.0) Estimated GFR (Cockcroft-Gault) 48.8 BUN/Creatinine Ratio 24 (6-20) Glucose Level 247 mg/dL (70-99) Calcium Level 9.3 mg/dL (8.5-10.1) Magnesium Level 2.4 mg/dL (1.8-2.4) Total Bilirubin 0.3 mg/dL (0.2-1.0) Aspartate Amino Transf (AST/SGOT) 20 U/L (15-37) Alanine Aminotransferase (ALT/SGPT) 42 U/L (14-59) Alkaline Phosphatase 72 U/L (46-116) Total Protein 6.1 g/dL (6.4-8.2) Albumin 2.8 g/dL (3.4-5.0) Albumin/Globulin Ratio 0.8 (1.0-1.7) Test 01/09/18 07:29 01/09/18 11:31 01/09/18 16:34 01/10/18 06:21 Glucose (Fingerstick) 245 mg/dL (70-99) 296 mg/dL (70-99) 129 mg/dL (70-99) White Blood Count 7.2 x10^3/uL (4.0-11.0) Red Blood Count 3.72 x10^6/uL (3.50-5.40) Hemoglobin 11.6 g/dL (12.0-15.5) Hematocrit 34.6 % (36.0-47.0) Mean Corpuscular Volume 93 fL (79-100) Mean Corpuscular Hemoglobin 31 pg (25-35) Mean Corpuscular Hemoglobin Concent 34 g/dL (31-37) Red Cell Distribution Width 13.6 % (11.5-14.5) Platelet Count 221 x10^3/uL (140-400) Neutrophils (%) (Auto) 89 % (31-73) Lymphocytes (%) (Auto) 8 % (24-48) Monocytes (%) (Auto) 3 % (0-9) Eosinophils (%) (Auto) 0 % (0-3) Basophils (%) (Auto) 0 % (0-3) Neutrophils # (Auto) 6.4 x10^3uL (1.8-7.7) Lymphocytes # (Auto) 0.6 x10^3/uL (1.0-4.8) Monocytes # (Auto) 0.2 x10^3/uL (0.0-1.1) Eosinophils # (Auto) 0.0 x10^3/uL (0.0-0.7) Basophils # (Auto) 0.0 x10^3/uL (0.0-0.2) Prothrombin Time 11.5 SEC (9.4-11.4) Prothromb Time International Ratio 1.1 (0.9-1.1) Sodium Level 138 mmol/L (136-145) Potassium Level 4.0 mmol/L (3.5-5.1) Chloride Level 104 mmol/L (98-107) Carbon Dioxide Level 23 mmol/L (21-32) Anion Gap 11 (6-14) Blood Urea Nitrogen 28 mg/dL (7-20) Creatinine 1.1 mg/dL (0.6-1.0) Estimated GFR (Cockcroft-Gault) 48.8 BUN/Creatinine Ratio 25 (6-20) Glucose Level 235 mg/dL (70-99) Calcium Level 9.4 mg/dL (8.5-10.1) Magnesium Level 2.6 mg/dL (1.8-2.4) Total Bilirubin 0.3 mg/dL (0.2-1.0) Aspartate Amino Transf (AST/SGOT) 12 U/L (15-37) Alanine Aminotransferase (ALT/SGPT) 35 U/L (14-59) Alkaline Phosphatase 65 U/L (46-116) Total Protein 5.9 g/dL (6.4-8.2) Albumin 2.8 g/dL (3.4-5.0) Albumin/Globulin Ratio 0.9 (1.0-1.7) Test 01/10/18 07:48 Glucose (Fingerstick) 242 mg/dL (70-99) Microbiology 01/08/18 Blood Culture - Preliminary, Resulted NO GROWTH AFTER 1 DAY 01/06/18 Urine Culture - Final, Complete 01/06/18 Urine Culture Result 1 (JODIE) - Final, Complete 01/06/18 Antimicrobic Susceptibility - Final, Complete Medications Current Medications Sodium Chloride 1,000 ml @ 1,000 mls/hr 1X ONCE IV Last administered on at 16:41; Start 01/06/18 at 16:30; Stop 01/06/18 at 17:29; Status DC Ondansetron HCl (Zofran) 4 mg 1X ONCE IV Last administered on 01/06/18at 16:42 ; Start 01/06/18 at 16:45; Stop 01/06/18 at 16:46; Status DC Metoprolol Tartrate (Lopressor Vial) 2.5 mg 1X ONCE IV Last administered on at 17:48; Start 01/06/18 at 17:30; Stop 01/06/18 at 17:31; Status DC Ceftriaxone Sodium 1 gm/ Sodium Chloride 50 ml @ 100 mls/hr 1X ONCE IV ; Start 01/06/18 at 17:30; Stop 01/06/18 at 17:59; Status UNV Azithromycin 500 mg/Sodium Chloride 250 ml @ 250 mls/hr 1X ONCE IV Last administered on 01/06/18at 18:10; Start 01/06/18 at 18:00; Stop 01/06/18 at 18:59 ; Status DC Ceftriaxone Sodium (Rocephin) 1 gm 1X ONCE IVP Last administered on 01/06/18at 17:55; Start 01/06/18 at 18:00; Stop 01/06/18 at 18:01; Status DC Sodium Chloride 250 ml @ As Directed STK-MED ONCE .ROUTE ; Start 01/06/18 at 17 :42; Stop 01/06/18 at 17:43; Status DC Azithromycin (Zithromax) 500 mg STK-MED ONCE IV ; Start 01/06/18 at 17:42; Stop 01/06/18 at 17:43; Status DC Ondansetron HCl (Zofran) 4 mg PRN Q4HRS PRN IV NAUSEA/VOMITING; Start 01/06/18 at 18:15; Stop 01/07/18 at 18:14; Status DC Morphine Sulfate (Morphine 4mg Syringe) 2 mg PRN Q2HR PRN IV PAIN; Start at 18:15; Stop 01/07/18 at 18:14; Status DC Sodium Chloride 1,000 ml @ 125 mls/hr Q8H IV Last administered on 01/07/18at 16 :26; Start 01/06/18 at 18:11; Stop 01/07/18 at 18:10; Status DC Acetaminophen (Tylenol) 650 mg PRN Q4HRS PRN PO FEVER Last administered on 01/07at 07:35; Start 01/06/18 at 18:15; Stop 01/07/18 at 08:23; Status DC Albuterol/ Ipratropium (Duoneb) 3 ml RTQID NEB Last administered on 01/07/18at 15:17; Start 01/06/18 at 20:00; Stop 01/07/18 at 19:59; Status DC Metoprolol Tartrate (Lopressor Vial) 2.5 mg Q6HRS IV Last administered on at 07:36; Start 01/07/18 at 00:00; Stop 01/08/18 at 17:20; Status DC Diltiazem HCl 100 mg/Dextrose 100 ml @ 5 mls/hr CONT PRN IV SEE I/O RECORD Last administered on 01/07/18at 07:38; Start 01/06/18 at 20:15; Stop 01/08/18 at 07:10; Status DC Enoxaparin Sodium (Lovenox) 40 mg Q24H SQ Last administered on 01/07/18at 20:22 ; Start 01/06/18 at 21:00; Stop 01/08/18 at 11:01; Status DC Ketorolac Tromethamine (Toradol) 30 mg PRN Q6HRS PRN IV PAIN; Start 01/06/18 at 20:15; Stop 01/11/18 at 20:14 Acetaminophen (Tylenol) 1,000 mg 1X ONCE PO Last administered on 01/06/18at 20: 47; Start 01/06/18 at 20:30; Stop 01/06/18 at 20:31; Status DC Azithromycin (Zithromax) 500 mg DAILY PO Last administered on 01/09/18at 07:31; Start 01/07/18 at 09:00 Ceftriaxone Sodium 1 gm/ Sodium Chloride 50 ml @ 100 mls/hr Q24H IV ; Start at 09:00; Status UNV Allopurinol (Zyloprim) 100 mg DAILY PO Last administered on 01/09/18at 07:31; Start 01/07/18 at 09:00 Aspirin (Children'S Aspirin) 81 mg DAILY PO Last administered on 01/09/18at 07: 31; Start 01/07/18 at 09:00 Docusate Sodium (Colace) 100 mg BID PO Last administered on 01/09/18at 21:15; Start 01/06/18 at 21:00 Gabapentin (Neurontin) 100 mg BID PO Last administered on 01/09/18 21:14; Start 01/06/18 at 21:00 Simvastatin (Zocor) 40 mg QHS PO Last administered on 01/07/18at 20:23; Start at 21:00; Stop 01/08/18 at 11:04; Status DC Tramadol HCl (Ultram) 50 mg QID PO Last administered on 01/09/18 21:13; Start 01/06/18 at 21:00 Calcium/Vitamin D (Oscal D 500mg/ 200uts) 1 tab DAILYWBKFT PO Last administered on 01/09/18 07:31; Start 01/07/18 at 08:00 Vitamin D (Vitamin D3) 2,000 unit DAILY PO Last administered on 01/09/18 07:32 ; Start 01/07/18 at 09:00 Cyanocobalamin (Vitamin B-12) 500 mcg BID PO Last administered on 01/09/18 21: 16; Start 01/06/18 at 21:00 Fish Oil (Fish Oil) 1,000 mg BID PO Last administered on 01/09/18 21:14; Start 01/06/18 at 21:00 Glimepiride (Amaryl) 4 mg BIDWMEALS PO Last administered on 01/09/18 16:35; Start 01/07/18 at 08:00 Ceftriaxone Sodium (Rocephin) 1 gm DAILY IVP Last administered on 01/09/18at 07: 35; Start 01/07/18 at 09:00 Lactobacillus Rhamnosus (Culturelle) 1 cap BID PO Last administered on at 21:13; Start 01/06/18 at 21:00 Albuterol Sulfate (Ventolin) 2.5 mg STK-MED ONCE .ROUTE ; Start 01/07/18 at 08: 20; Stop 01/07/18 at 08:21; Status DC Albuterol Sulfate (Ventolin) 2.5 mg 1X ONCE NEB ; Start 01/07/18 at 08:45; Stop 01/07/18 at 08:46; Status DC Methylprednisolone Sodium Succinate (SOLU-Medrol 125MG VIAL) 125 mg Q8HRS IV Last administered on 01/09/18at 05:40; Start 01/07/18 at 08:23; Stop 01/09/18 at 09:13; Status DC Guaifenesin (MUCINEX ER with DM) 1 tab BID PO Last administered on 01/09/18at 21 :15; Start 01/07/18 at 09:00 Acetaminophen (Tylenol) 650 mg PRN Q6HRS PRN PO PAIN / TEMP; Start 01/07/18 at 08:30 Acetaminophen/ Codeine Phosphate (Tylenol/Codeine Soln) 5 ml 1X ONCE PO Last administered on 01/07/18at 09:57; Start 01/07/18 at 08:45; Stop 01/07/18 at 08:46 ; Status DC Diltiazem HCl (Cardizem 24hr Cd) 120 mg DAILY PO Last administered on at 07:32; Start 01/07/18 at 15:00 Warfarin Sodium (Coumadin Per Pharmacy) 1 each PRN DAILY PRN MC SEE COMMENTS Last administered on 01/09/18at 09:47; Start 01/07/18 at 12:45 Warfarin Sodium (Coumadin) 5 mg 1X WARF ONCE PO ; Start 01/08/18 at 17:15; Stop 01/08/18 at 17:15; Status DC Insulin Aspart (NovoLOG) 0-9 UNITS QIDACHS SQ Last administered on 01/09/18at 21 :30; Start 01/07/18 at 17:15 Insulin Aspart (NovoLOG) 20 units 1X ONCE SQ Last administered on 01/07/18at 17 :18; Start 01/07/18 at 17:15; Stop 01/07/18 at 17:16; Status DC Warfarin Sodium (Coumadin) 5 mg 1X WARF ONCE PO Last administered on at 20:23; Start 01/07/18 at 19:00; Stop 01/07/18 at 19:01; Status DC Melatonin 6 mg PRN QHS PRN PO INSOMNIA Last administered on 01/09/18at 21:15; Start 01/07/18 at 20:00 Albuterol/ Ipratropium (Duoneb) 3 ml STK-MED ONCE .ROUTE ; Start 01/08/18 at 05: 04; Stop 01/08/18 at 05:05; Status DC Albuterol/ Ipratropium (Duoneb) 3 ml RTQID NEB Last administered on 01/10/18at 05:58; Start 01/08/18 at 08:00 Albuterol Sulfate (Ventolin) 2.5 mg STK-MED ONCE .ROUTE ; Start 01/08/18 at 08: 00; Stop 01/08/18 at 08:01; Status DC Albuterol Sulfate (Ventolin) 2.5 mg PRN Q4HRS PRN NEB SHORTNESS OF BREATH; Start 01/08/18 at 08:00 Enoxaparin Sodium (Lovenox) 80 mg BID SQ ; Start 01/08/18 at 11:30; Stop at 12:04; Status DC Metoprolol Tartrate (Lopressor) 25 mg BID PO Last administered on 01/08/18at 11: 49; Start 01/08/18 at 11:30; Stop 01/08/18 at 17:17; Status DC Atorvastatin Calcium (Lipitor) 20 mg QHS PO Last administered on 01/09/18at 21: 13; Start 01/08/18 at 21:00 Enoxaparin Sodium (Lovenox 100mg Syringe) 100 mg STK-MED ONCE SQ Last administered on 01/08/18at 11:49; Start 01/08/18 at 11:46; Stop 01/08/18 at 11:47 ; Status DC Enoxaparin Sodium (Lovenox 80mg Syringe) 80 mg BID SQ Last administered on 01/09at 21:15; Start 01/08/18 at 12:04 Warfarin Sodium (Coumadin) 5 mg 1X WARF ONCE PO Last administered on at 16:43; Start 01/08/18 at 16:00; Stop 01/08/18 at 16:01; Status DC Bisacodyl (Dulcolax Tab) 10 mg PRN DAILY PRN PO CONSTIPATION Last administered on 01/09/18at 07:30; Start 01/08/18 at 13:45 Metoprolol Tartrate (Lopressor) 50 mg BID PO Last administered on 01/09/18at 21: 15; Start 01/08/18 at 21:00 Mupirocin (Bactroban) 1 diaz BID TP Last administered on 01/09/18at 21:16; Start 01/08/18 at 21:00 Methylprednisolone Sodium Succinate (SOLU-Medrol 125MG VIAL) 60 mg BID IV Last administered on 01/09/18at 21:14; Start 01/09/18 at 21:00 Warfarin Sodium (Coumadin) 7.5 mg 1X WARF ONCE PO Last administered on at 16:35; Start 01/09/18 at 16:00; Stop 01/09/18 at 16:01; Status DC Magnesium Citrate (Citroma) 296 ml PRN DAILY PRN PO CONSTIPATION Last administered on 01/09/18at 15:23; Start 01/09/18 at 12:15 Senna/Docusate Sodium (Senna Plus) 4 tab PRN 1X PRN PO CONSTIPATION; Start at 07:45 Active Scripts Active Reported Melatonin 3 Mg Tablet 3 Mg PO HS Vitamin B12 (Cyanocobalamin (Vitamin B-12)) 5,000 Mcg Tab.rapdis 500 Mcg PO BID Calcium 500 + Vit D 400 Tablet (Calcium Carbonate/Vitamin D3) 1 Each Tablet 1 Each PO DAILY Colace (Docusate Sodium) 100 Mg Capsule 1 Cap PO BID Aspirin 81 Mg Tab.chew 81 Mg PO DAILY Fish Oil 1,200 Mg Fish Oil (Fish Oil/Dha/Epa) 1 Each Capsule 1 Each PO BID Vitamin D (Cholecalciferol (Vitamin D3)) 2,000 Unit Capsule 1 Cap PO DAILY Gabapentin 100 Mg Capsule 100 Mg PO BID Allopurinol 100 Mg Tablet 1 Tab PO DAILY Tramadol Hcl (Tramadol HCl) 50 Mg Tablet 50 Mg PO QID Carvedilol 6.25 Mg Tablet 1 Tab PO BID Glimepiride 4 Mg Tablet 1 Tab PO BID Simvastatin 40 Mg Tablet 1 Tab PO QHS Lisinopril 20 Mg Tablet 1 Tab PO DAILY Vitals/I & O Vital Sign - Last 24 Hours 01/09/18 01/09/18 01/09/18 01/09/18 09:19 10:09 11:00 11:00 Pulse 105 96 Resp 16 20 B/P (MAP) 149/102 (118) 134/86 (102) Pulse Ox 93 96 93 O2 Delivery Nasal Cannula Room Air Nasal Cannula Nasal Cannula O2 Flow Rate 2.0 2.0 2.0 01/09/18 01/09/18 01/09/18 01/09/18 11:33 12:00 12:24 14:00 Temp 98.4 Pulse 98 82 Resp 18 20 20 B/P (MAP) 139/84 (102) 131/77 (95) Pulse Ox 95 96 94 O2 Delivery Nasal Cannula Nasal Cannula Nasal Cannula O2 Flow Rate 2.0 2.0 2.0 01/09/18 01/09/18 01/09/18 01/09/18 14:07 16:00 16:13 16:20 Temp 97.3 Pulse 91 Resp 18 B/P (MAP) 143/78 (99) Pulse Ox 94 96 O2 Delivery Nasal Cannula Nasal Cannula Room Air O2 Flow Rate 2.0 2.0 01/09/18 01/09/18 01/09/18 01/09/18 18:48 19:58 20:00 20:40 Pulse 87 106 Resp 18 18 B/P (MAP) 140/97 (111) 167/94 (118) Pulse Ox 94 95 93 O2 Delivery Nasal Cannula Nasal Cannula Nasal Cannula Room Air O2 Flow Rate 2.0 2.0 2.0 01/09/18 01/09/18 01/09/18 01/09/18 21:13 21:15 22:00 22:13 Pulse 106 114 Resp 18 20 18 B/P (MAP) 167/94 164/87 (112) Pulse Ox 95 94 94 O2 Delivery Nasal Cannula Room Air Nasal Cannula O2 Flow Rate 2.0 01/09/18 01/10/18 01/10/18 01/10/18 23:59 00:00 02:00 04:00 Temp 97.7 Pulse 106 92 83 Resp 18 18 18 B/P (MAP) 162/90 (114) 174/97 (122) 164/88 (113) Pulse Ox 95 94 94 O2 Delivery Nasal Cannula Room Air Room Air Room Air O2 Flow Rate 2.0 01/10/18 01/10/18 01/10/18 04:00 05:20 06:00 Pulse 94 Resp 20 B/P (MAP) 155/87 (109) Pulse Ox 95 93 O2 Delivery Nasal Cannula Room Air Room Air O2 Flow Rate 2.0 Intake and Output 01/09/18 01/09/18 01/10/18 14:59 22:59 06:59 Intake Total 480 ml 360 ml 720 ml Balance 480 ml 360 ml 720 ml CLAYTON ROE APRN Jan 10, 2018 08:21
[2018-01-10] MEDS: GABAPENTIN 100 MG CAPSULE. PO SCH (08:23)
[2018-01-10] MEDS: CHOLECALCIFEROL (VITAMIN D3) 1,000 UNIT TABLET PO SCH (08:24)
[2018-01-10] MEDS: GLIMEPIRIDE 2 MG TABLET PO SCH (08:24)
[2018-01-10] MEDS: LACTOBACILLUS RHAMNOSUS GG 1 CAPSULE. PO SCH (08:24)
[2018-01-10] MEDS: traMADol 50 MG TABLET PO SCH ×2 (08:24→12:12)
[2018-01-10] MEDS: guaiFENesin DM 600/30MG 1 TAB TAB.ER.12H PO SCH (08:25)
[2018-01-10] MEDS: ASPIRIN 81 MG TAB.CHEW PO SCH (08:25)
[2018-01-10] MEDS: DOCUSATE SODIUM 100 MG CAPSULE PO SCH (08:25)
[2018-01-10] MEDS: METOPROLOL TART IMMED RELEASE 50 MG TABLET PO SCH (08:25)
[2018-01-10] MEDS: CALCIUM CARB/VIT D3 500/200 TABLET PO SCH (08:25)
[2018-01-10] MEDS: OMEGA-3 FATTY ACIDS/FISH OIL 1,000 MG CAPSULE. PO SCH (08:25)
[2018-01-10] MEDS: AZITHROMYCIN 250 MG TABLET. PO SCH (08:25)
[2018-01-10] MEDS: ALLOPURINOL 100 MG TABLET. PO SCH (08:25)
[2018-01-10] MEDS: methylPREDNISolone SOD SUCC PF 125 MG/2 ML VIAL. IV SCH (08:26)
[2018-01-10] MEDS: CYANOCOBALAMIN (VITAMIN B-12) 250 MCG TABLET PO SCH (08:26)
[2018-01-10] MEDS: MUPIROCIN 2% TOPICAL OINTMENT 22GM TUBE. TP SCH (08:27)
[2018-01-10 08:46] VITALS: BP 155/87
[2018-01-10] MEDS: INSULIN ASPART 300 UNITS/3 ML INSULN.PEN SQ SCH ×2 (08:47→12:13)
[2018-01-10] MEDS: ENOXAPARIN ** NOTE DOSE ** SYRINGE SQ SCH (08:47)
[2018-01-10] MEDS: cefTRIAXone IV Push 1 GM VIAL. IVP SCH (08:47)
[2018-01-10 09:39] LABS: % BANDS 10 % (0-9); % LYMPHS 5 % (24-48); % METAS 1 % (0-0); % MONOS 4 % (0-10); % SEGS 79 % (35-66); PLATELET CLUMP PRESENT; PLT ESTIMATE ADEQUATE (ADEQUATE)
[2018-01-10] MEDS ORDERED: INSULIN ASPART 300 UNITS/3 ML INSULN.PEN SQ ONE (12:00)
[2018-01-10] MEDS ORDERED: PRED-220 PO (12:28)
[2018-01-10] MEDS ORDERED: APIX5TAB3 PO (12:28)
[2018-01-10] MEDS ORDERED: DOXY100C2 PO (12:28)
--- NOTE | 2018-01-10 13:18 | DS ---
DATE OF DISCHARGE: 01/10/2018 DISCHARGE DIAGNOSES: 1. Atrial fibrillation with rapid ventricular response. 2. Community-acquired pneumonia. 3. Nausea and vomiting, resolved. 4. Escherichia coli urinary tract infection. 5. Acute kidney injury from antibiotics. 6. Hyperglycemia. 7. Type 2 diabetes. 8. Moderate protein calorie malnutrition. 9. Methicillin-resistant Staphylococcus aureus positive. HOSPITAL COURSE: This is a 72-year-old female who came to the Emergency Room with 1-week history of cough, sweats, chills, right ear was hurting, wheezing, shortness of breath. Over the course of the workup, she was found to have community-acquired pneumonia, gram negative E. coli. She also developed AFib with RVR. She was treated with IV steroids, IV antibiotics, Cardizem drip initially and Coumadin and Lovenox. She was also seen in consultation with Cardiology. She is feeling much better on 01/10/2018, although in her CBC, we got some bands and her chest x-ray is lagging behind, but she is much better and was very anxious to go home. She received a sliding scale during her hospitalization. She has been constipated and did not have any results with the magnesium citrate. OBJECTIVE: VITAL SIGNS: Blood pressure 155/87, pulse 94, temperature 97.7, pulse ox the patient passed the 6-minute test. GENERAL: Color is better. LUNGS: With just a few scattered wheezes. Good air movement. CARDIOVASCULAR: Irregular rhythm and rate. ABDOMEN: Soft, slightly distended. Positive bowel sounds. EXTREMITIES: Without edema. PLAN: Is to discharge home today on Eliquis, doxycycline, and prednisone to finish 30 mg daily for 5 days and then stop, we will be getting a nebulizer with nebulizer treatment. Will see her doctor on Saturday or Saturday and return if she is not better. STEVIE SLAUGHTER DO DR: CARLY/pamela JOB#: [id number] / [id number]
[2018-01-10] MEDS ORDERED: WARFARIN 7.5 MG TABLET. PO ONE (16:00)
--- NOTE | 2018-01-11 16:34 | PN ---
DATE: 01/08/2018 CURRENT PROBLEMS: 1. Community-acquired pneumonia. 2. Acute bronchitis. 3. Atrial fibrillation with rapid ventricular response. 4. Nausea and vomiting, resolved. 5. History of non-Hodgkin's lymphoma. 6. Hypertension. 7. Diabetes. 8. Methicillin-resistant Staphylococcus aureus positive. 9. Escherichia coli. 10. Urinary tract infection. SUBJECTIVE: Doing a little bit better today, still wheezy, has been seen by Cardiology for the AFib with RVR, rate controlled. Does have some tachycardia with minimal activity, has been changed to metoprolol and will be started on Coumadin. OBJECTIVE: VITAL SIGNS: Blood pressure 114/78, pulse 97, respirations 18, pulse ox 95% on 2 liters. GENERAL: Color is pale. HEENT: Throat is clear. NECK: Supple. LUNGS: With still few scattered wheezes, but better air movement. CARDIOVASCULAR: Irregular rhythm and rate. ABDOMEN: Soft, nontender. EXTREMITIES: Without edema. LABORATORY DATA: Hemoglobin 11.5, hematocrit 34.0, platelets 134,000. Glucose is 334. INR is 1. ASSESSMENT AND PLAN: Continue anticoagulation. Continue antibiotics and will continue to work toward discharge. STEVIE SLAUGHTER DO DR: CARLY/pamela JOB#: [id number] / [id number]
== END 2018-01-10 14:45 | disposition home or self-care (01) | DRG 177 ==
LOC: ER 15:35 → ICU 18:05
PROVIDERS: ADMIT Family Medicine; ATTEND Family Medicine
DX: J15.6 Pneumonia due to other Gram-negative bacteria (principal); J96.00 Acute respiratory failure, unspecified whether with hypoxia or hypercapnia; N17.9 Acute kidney failure, unspecified; E44.0 Moderate protein-calorie malnutrition; C85.90 Non-Hodgkin lymphoma, unspecified, unspecified site; E11.22 Type 2 diabetes mellitus with diabetic chronic kidney disease; E11.40 Type 2 diabetes mellitus with diabetic neuropathy, unspecified; N39.0 Urinary tract infection, site not specified; B96.20 Unspecified Escherichia coli [E. coli] as the cause of diseases classified elsewhere; J44.1 Chronic obstructive pulmonary disease with (acute) exacerbation; J44.0 Chronic obstructive pulmonary disease with (acute) lower respiratory infection; I42.9 Cardiomyopathy, unspecified; I48.91 Unspecified atrial fibrillation; N18.3 Chronic kidney disease, stage 3 (moderate); E11.65 Type 2 diabetes mellitus with hyperglycemia; J20.9 Acute bronchitis, unspecified; E03.9 Hypothyroidism, unspecified; E78.00 Pure hypercholesterolemia, unspecified; E78.5 Hyperlipidemia, unspecified; I12.9 Hypertensive chronic kidney disease with stage 1 through stage 4 chronic kidney disease, or unspecified chronic kidney disease; E11.51 Type 2 diabetes mellitus with diabetic peripheral angiopathy without gangrene; I25.10 Atherosclerotic heart disease of native coronary artery without angina pectoris; K59.00 Constipation, unspecified; M10.9 Gout, unspecified; M19.90 Unspecified osteoarthritis, unspecified site; T38.0X5A Adverse effect of glucocorticoids and synthetic analogues, initial encounter; T36.95XA Adverse effect of unspecified systemic antibiotic, initial encounter; Z96.611 Presence of right artificial shoulder joint; Z96.612 Presence of left artificial shoulder joint; Z96.653 Presence of artificial knee joint, bilateral; Z79.01 Long term (current) use of anticoagulants; Z82.49 Family history of ischemic heart disease and other diseases of the circulatory system; Z90.49 Acquired absence of other specified parts of digestive tract; Z91.81 History of falling; Z92.21 Personal history of antineoplastic chemotherapy; Z92.3 Personal history of irradiation; Y92.89 Other specified places as the place of occurrence of the external cause; Z90.89 Acquired absence of other organs; Z88.8 Allergy status to other drugs, medicaments and biological substances; Z88.1 Allergy status to other antibiotic agents; Z98.51 Tubal ligation status; Z86.711 Personal history of pulmonary embolism; Z22.322 Carrier or suspected carrier of Methicillin resistant Staphylococcus aureus; Z68.30 Body mass index [BMI] 30.0-30.9, adult
CPT/HCPCS: 36415; 71045; 71046; 80048; 80053; 80061; 81001; 82947; 83690; 83735; 83880; 84484; 85007; 85025; 85610; 87040; 87086; 87186; 87641; 87804; 93005; 93306; 94618; 94640; 96361; 96365; 96375; J0456; J0696; J1650; J1815; J2405; J2930; J3490; J7050; J7620; 99285-25; J7030

== ENCOUNTER → 2018-01-21 | Outpatient (CLI) | payer MEDICARE ==
[2018-01-10 08:46] VITALS: BP 155/87
[~2018-01-21] MED LIST: ALLO100T PO; APIX5TAB3 PO; ASPI-630 PO; CALC-30 PO; CARV6.252 PO; CHOL2000 PO; CYAN50008 PO; DOCU-109 PO; DOXY100C2 PO; FISH1CAP PO; GABA-585 PO; GLIM4TAB2 PO; LISI-334 PO; MELA3TAB2 PO; PRED-220 PO; REGADENOSON 0.4 MG/5 ML DISP.SYRIN. IV ONE; SIMV40TA3 PO; TRAM50TA PO
--- NOTE | 2018-01-21 12:35 | RAD ---
MR#: [id number] Date of Study: 01/21/2018 Ordering Physician: STEVEN HAYNES, Referring Physician: JOSE HAWLEY Tech: MARYELLEN Macias APPROVED REPORT Test Type: Pharmacological Stress Nurse/Tech: MARYELLEN Macias Test Indications: Chest pain A-Fib Cardiac History: A-Fib HTN Diabetic Medications: see EHR Medical History: see EHR Resting ECG: SR Resting Heart Rate: 56 bpm Resting Blood Pressure: 190/98mmHg Pretest Chest Pain: No chest pain Nurse/Tech Notes Consent: The procedure was explained to the patient in lay terms. Informed consent was witnessed. Lew eout was entered into [email or web address]. History and Stress Test performed by MARYELLEN Macias Pharm. Details Pharmacologic stress testing was performed using 0.4mg per 5ml of regadenoson given intravenously ove r 7-10 seconds. POST EXERCISE Reason for Termination: Infusion complete Max HR: 72 bpm Max Blood Pressure: 191/87mmHg Blood Pressure response to exercise: Normal blood pressure response during stress. Chest Pain: No. Arrhythmia: No. ST Change: No. INTERPRETATION Stress EKG Conclusion: No Acute changes Imaging Protocol IMAGE PROTOCOL: Rest Tc-99m/stress Tc-99m 1 day Rest: Stress: Viability: Radiopharm.Tc99m [id number] Sestamibi Dose11.3mCi 32.3mCi Duration 15min. 10min. Img Date 01/21/2018 01/21/2018 Inj-Img [id number]. 60min. Rest Admin Site:IV - Left AntecubitalAdministrator: MARYELLEN Macias Stress Admin Site: IV - Left AntecubitalAdministrator: MARYELLEN Macias STRESS DATA End Diast. Vol.122.0mlAv. Heart Rate56.0bpm LVEDV index BSA2.0mlCardiac Output0.1L/min End Syst. Vol.38.0mlCO Index BSA4.7L/min LVESV index BSA1.0mlMyocardial Cnwp201.0g Eject. Acxbtykb52.0% Stress Rates Pk. Fill Rate2.61EDV/secLVtime Pk. Fill 146.21msec Pk. Empty Rate2.58ESV/secLVtime Pk. Ukdcv587.39msec 1/3 Pk. Fill1.74EDV/sec Stress Scores Regional WT0.00Summed WT0.00 Regional WM0.00Summed WM1.00 LV Perfusion There is a small sized, severe in intensity FIXED apical perfusion defect suggestive of prior infarct without ischemia. There is a moderate sized anterior perfusion defect that appears reversible most likely related to mo tion artifact based on lack of q waves on EKG and normal wall motion in this area. LV Perf. Quant 17 Seg. SSS7.00 17 Seg. SRS8.00 17 Seg. SDS3.00 Stress Defect Extent (% LAD)16.30Rest Defect Extent (% LAD)30.00Rev. Defect Extent (% LAD)0.60 Stress Defect Extent (% LCX) 32.50Rest Defect Extent (% LCX)15.00Rev. Defect Extent (% LCX)2.50 Stress Defect Extent (% RCA)0.00Rest Defect Extent (% RCA)0.00Rev. Defect Extent (% RCA)0.00 Stress Defect Extent (% RACHEL)17.00Rest Defect Extent (% RACHEL)18.50Rev. Defect Extent (% RACHEL)2.20 Other Information Quality:Good Risk Assessment: Low-Moderate Risk Conclusion 1. No evidence of vasodilator stress induced EKG changes. 2. There is a small fixed apical defect without any active ischemia or infarct. 3. Motion artifact noted 4. Normal EF at > 70% 5. Low to moderate risk study. Signed by : Steevn Haynes, Electronically Approved : 01/21/2018 12:35:12
== END | disposition home or self-care (01) ==
LOC: NM 07:28
PROVIDERS: ATTEND Nurse Practitioner
DX: R07.9 Chest pain, unspecified (principal); I12.9 Hypertensive chronic kidney disease with stage 1 through stage 4 chronic kidney disease, or unspecified chronic kidney disease; E11.22 Type 2 diabetes mellitus with diabetic chronic kidney disease; N18.3 Chronic kidney disease, stage 3 (moderate); N17.9 Acute kidney failure, unspecified; Z79.01 Long term (current) use of anticoagulants
CPT/HCPCS: 78452; 93017; 96374; 96375; 96376; A9500; J2785

== ENCOUNTER 2018-05-23 17:59 | Inpatient (IN) | payer MEDICARE ==
[~2018-05-23] VITALS: Ht 167.6 cm; Wt 85.3 kg
[~2018-05-23 17:59] MED LIST changes: -REGADENOSON 0.4 MG/5 ML DISP.SYRIN. IV ONE
--- NOTE | 2018-05-23 18:35 | PHYS DOC ---
Past History Past Medical History: Arthritis, Diabetes, High Cholesterol, Hypertension, Other Past Surgical History: Appendectomy, Cholecystectomy, Knee Replacement, Tonsillectomy Alcohol Use: None Drug Use: None Adult General Chief Complaint Chief Complaint: BRADYCARDIA HPI HPI 73-year-old female presents with bradycardia. The patient saw her PCP earlier today and her thank you heart rate was found to be in the 30s and 40s. The patient has been feeling fatigued for the last couple of months. She states for the last 2 weeks she has had a very difficult time motivating herself to do things because she feels so fatigued. She describes some fatigue as an out of energy feeling, but it is accompanied by some shortness of breath. When she exerts herself, the shortness of breath seems worse. She denies diaphoresis or chest pain. Her physician recommended that she come to the hospital to be admitted for further evaluation and possible medication adjustment. He did recommend that she stop metoprolol and Cartia XT. Her last dose of both of these was this morning. Patient has a history of A. fib. She denies fever, chills, cough, congestion, diarrhea, or constipation. Review of Systems Review of Systems Constitutional: Denies fever or chills, Feels fatigued [] Eyes: Denies change in visual acuity, redness, or eye pain [] HENT: Denies nasal congestion or sore throat [] Respiratory: Mild shortness of breath [] Cardiovascular: No additional information not addressed in HPI [] GI: Denies abdominal pain, nausea, vomiting, bloody stools or diarrhea [] : Denies dysuria or hematuria [] Musculoskeletal: Denies back pain or joint pain [] Integument: Denies rash or skin lesions [] Neurologic: Denies headache, focal weakness or sensory changes [] Endocrine: Denies polyuria or polydipsia [] All other systems were reviewed and found to be within normal limits, except as documented in this note. Allergies Allergies Allergies Coded Allergies Type Severity Reaction Last Updated Verified levofloxacin Allergy Intermediate 04/12/16 Yes verapamil Allergy Intermediate 04/12/16 Yes I S O L A T I O N *CONTACT* Allergy Unknown 01/08/18 Yes Physical Exam Physical Exam Constitutional: Well developed, well nourished, no acute distress, non-toxic appearance. [] HENT: Normocephalic, atraumatic, bilateral external ears normal, oropharynx moist, no oral exudates, nose normal. [] Eyes: PERRLA, EOMI, conjunctiva normal, no discharge. [] Neck: Normal range of motion, no tenderness, supple, no stridor. [] Cardiovascular: Bradycardia, irregular rhythm[] Lungs & Thorax: Bilateral breath sounds clear to auscultation [] Abdomen: Bowel sounds normal, soft, no tenderness, no masses, no pulsatile masses. [] Skin: Warm, dry, no erythema, no rash. [] Back: No tenderness, no CVA tenderness. [] Extremities: No tenderness, no cyanosis, no clubbing, ROM intact, no edema. [] Neurologic: Alert and oriented X 3, normal motor function, normal sensory function, no focal deficits noted. [] Psychologic: Affect normal, judgement normal, mood normal. [] EKG EKG Irregular rhythm, rate 58, normal axis, no ST elevations or depressions. P waves are present, but hard to see on every beat.[] Radiology/Procedures Radiology/Procedures [] Course & Med Decision Making Course & Med Decision Making Pertinent Labs and Imaging studies reviewed. (See chart for details) Patient's labs are significant for a creatinine of 1.4. Review of her chart shows she is normally 1.1. BUN is just slightly elevated. Her glucose is 192, but she tells me this is about where her blood sugars have been running lately. Her troponin is negative. Her EKG shows irregular rhythm, but there are P waves for most beats. Chest x-ray is unremarkable. I suspect the patient's medications may need to be adjusted. She may be having medication stacking. It is also possible that she may need a pacer. I will discuss admission with the hospitalist. I talked to the hospitalist, Dr. Kohli and he has accepted the patient for admission. [] Dragon Disclaimer Dragon Disclaimer This electronic medical record was generated, in whole or in part, using a voice recognition dictation system. Departure Departure: Referrals: TRISTAN PORTILLO MD (PCP) ANTONY YEAGER DO May 23, 2018 18:35
[2018-05-23 19:08] LABS: BASO % 1 % (0-3); EOS % 0 % (0-3); HEMATOCRIT 37.6 % (36.0-47.0); HEMOGLOBIN 12.9 g/dL (12.0-15.5); LYMPH # 1.4 x10^3/uL (1.0-4.8); LYMPH % 34 % (24-48); MEAN CORPUSCULAR HEMOGLOBIN 31 pg (25-35); MEAN CORPUSCULAR HGB CONC 34 g/dL (31-37); MEAN CORPUSCULAR VOLUME 90 fL (79-100); MONO # 0.5 x10^3/uL (0.0-1.1); MONO % 11 % (0-9); NEUT # 2.3 x10^3uL (1.8-7.7); NEUT % 55 % (31-73); PLATELET COUNT 119 x10^3/uL (140-400); RED BLOOD COUNT 4.19 x10^6/uL (3.50-5.40); RED CELL DISTRIBUTION WIDTH 14.2 % (11.5-14.5); WHITE BLOOD COUNT 4.2 x10^3/uL (4.0-11.0)
[2018-05-23 19:21] LABS: ALBUMIN 3.4 g/dL (3.4-5.0); ALBUMIN/GLOBULIN RATIO 1.2 (1.0-1.7); CALCIUM 8.8 mg/dL (8.5-10.1); CREATININE 1.4 mg/dL (0.6-1.0); GFR 36.9; TOTAL BILIRUBIN 0.3 mg/dL (0.2-1.0); TOTAL PROTEIN 6.3 g/dL (6.4-8.2)
[2018-05-23] MEDS ORDERED: ONDANSETRON PF 4 MG/2 ML VIAL. IV PRN (21:45)
[2018-05-23 22:00] VITALS: BP 203/106
[2018-05-23] MEDS ORDERED: cloNIDine HCL 0.1 MG TABLET PO ONE (22:00)
--- NOTE | 2018-05-23 22:28 | EKG ---
[address] [address] Test Date: 2018-05-23 Test Time: 18:24:32 Pat Name: MARANDA BANDA Department: Room: 123 A Gender: F Pediatric Medical Assistant: CAROLINE : 1945 Requested By: ANTONY YEAGER Order Number: [id number] Reading MD: Edgar Dnaiel MD Measurements Intervals [place] Rate: 58 P: [place]: QRS: 27 QRSD: 104 T: 64 QT: 428 QTc: 424 Interpretive Statements SR PAC'S Electronically Signed On 05-24-2018 9:16:59 CDT by Edgar Daniel MD
--- NOTE | 2018-05-23 22:28 | RAD ---
PORTABLE CHEST 1V History: Bradycardia, shortness of breath Comparison: 01/09/2018 Findings: Single view of the chest is submitted. Pericardial cardiac silhouette is stable, upper limits of normal. Mild fullness of the left hilar is stable. There is atherosclerotic calcification aortic arch. There are prostheses of the bilateral humeri. There is no significant pleural fluid, pneumothorax, lobar consolidation. There is probable emphysema. Impression: 1. There is no radiographic evidence of acute cardiopulmonary disease. Electronically signed by: Aureliano Rosas MD (05/23/2018 8:45 PM) [facility]
[2018-05-23 23:51] VITALS: BP 176/81
[2018-05-24] VITALS (8 sets, daily range): BP systolic 100–190; BP diastolic 63–100
[2018-05-24 00:23] LABS: BILIRUBIN,URINE NEG (NEG); CLARITY,URINE HAZY; COLOR,URINE STRAW; GLUCOSE,URINE NEG (NEG); NITRITE,URINE NEG (NEG); RBC,URINE 0 /HPF (0-2); UROBILINOGEN,URINE 0.2 mg/dL (0.2 mg/dL)
[2018-05-24 00:24] LABS: BACTERIA,URINE MANY /HPF (0-FEW); SQUAMOUS EPITHELIAL CELL,UR OCC /LPF
[2018-05-24] MEDS ORDERED: APIX5TAB3 PO (01:49)
[2018-05-24] MEDS ORDERED: SIMV20TA3 PO (01:49)
[2018-05-24] MEDS ORDERED: AMLO10TA2 PO (01:49)
[2018-05-24 06:11] LABS: CALCIUM 8.9 mg/dL (8.5-10.1); CREATININE 1.3 mg/dL (0.6-1.0); GFR 40.2
[2018-05-24 06:18] LABS: BASO % 1 % (0-3); EOS % 0 % (0-3); HEMATOCRIT 36.7 % (36.0-47.0); HEMOGLOBIN 12.4 g/dL (12.0-15.5); LYMPH # 1.2 x10^3/uL (1.0-4.8); LYMPH % 33 % (24-48); MEAN CORPUSCULAR HEMOGLOBIN 30 pg (25-35); MEAN CORPUSCULAR HGB CONC 34 g/dL (31-37); MEAN CORPUSCULAR VOLUME 90 fL (79-100); MONO # 0.4 x10^3/uL (0.0-1.1); MONO % 12 % (0-9); NEUT # 1.9 x10^3uL (1.8-7.7); NEUT % 54 % (31-73); PLATELET COUNT 111 x10^3/uL (140-400); RED BLOOD COUNT 4.09 x10^6/uL (3.50-5.40); RED CELL DISTRIBUTION WIDTH 14.2 % (11.5-14.5); WHITE BLOOD COUNT 3.5 x10^3/uL (4.0-11.0)
[2018-05-24] MEDS: LISINOPRIL 20 MG TABLET PO SCH (11:15)
[2018-05-24] MEDS: ALLOPURINOL 100 MG TABLET. PO SCH (11:16)
[2018-05-24] MEDS: amLODIPine BESYLATE 10 MG TABLET PO SCH (11:17)
[2018-05-24] MEDS: GABAPENTIN 100 MG CAPSULE. PO SCH ×2 (11:18→20:58)
[2018-05-24] MEDS: DOCUSATE SODIUM 100 MG CAPSULE PO SCH ×2 (11:18→20:57)
[2018-05-24] MEDS: OMEGA-3 FATTY ACIDS/FISH OIL 1,000 MG CAPSULE. PO SCH ×2 (11:19→20:59)
[2018-05-24] MEDS: GLIMEPIRIDE 2 MG TABLET PO SCH ×2 (11:19→20:59)
[2018-05-24] MEDS: CYANOCOBALAMIN (VITAMIN B-12) 1,000 MCG TABLET. PO SCH (11:19)
[2018-05-24] MEDS: APIXABAN 5 MG TABLET. PO SCH ×2 (11:19→20:59)
[2018-05-24] MEDS: hydrALAZINE 25 MG TABLET PO SCH ×2 (16:01→20:58)
[2018-05-24] MEDS ORDERED: SIMVASTATIN 20 MG TABLET PO SCH (21:00)
[2018-05-24] MEDS ORDERED: CHOLECALCIFEROL (VITAMIN D3) 1,000 UNIT TABLET PO SCH (21:00)
--- NOTE | 2018-05-24 21:18 | HP ---
ADMIT DATE: 05/23/2018 HISTORY OF PRESENT ILLNESS: The patient of a 73-year-old female patient who was seen yesterday at her primary care physician's office with a complaint of generalized weakness and fatigue for the last couple of months. Her heart rate was found to be low in the 30s and 40s and her supervisor grove recommended that she gets admitted and to discontinue her metoprolol and Cartia XT and to observe her heart rate and if she remains in sinus rhythm, she can be discharged home; if she went into atrial fibrillation, rapid ventricular response then she will probably need to transferred to [facility] for either pacemaker placement and/or atrial ablation. The patient stated that other than fatigue for the last couple of months, she also has shortness of breath, lack of motivation, and the shortness of breath worsened with exertion; however, she denied any chest pain, denied any diaphoresis, orthopnea, or paroxysmal nocturnal dyspnea. PAST MEDICAL HISTORY: Significant for hypertension, hyperlipidemia, type 2 diabetes, atrial fibrillation, generalized osteoarthritis as well as gout. PAST SURGICAL HISTORY: Significant for she has tonsillectomy, cholecystectomy, appendectomy, has bilateral total knee replacement, bilateral shoulder replacement, colonoscopy. She also had hernia repair at [facility]. ALLERGIES: She is allergic to LEVOFLOXACIN and VERAPAMIL. MEDICATIONS: She is currently on following medications: She is on apixaban 5 mg twice a day, simvastatin 20 mg at bedtime, amlodipine 10 mg once a day, lisinopril 40 mg once a day, gabapentin 200 mg p.o. b.i.d., Colace 100 mg twice a day, glimepiride 4 mg twice a day, cyanocobalamin for B12 5000 mcg tablet once a day, and cholecalciferol, vitamin D3 of 2000 International Units once a day. She is on fish oil twice a day, allopurinol 100 mg once a day. FAMILY HISTORY: Unremarkable. SOCIAL HISTORY: She is , lives with . She does not smoke, drink alcohol, or use any recreational drugs. REVIEW OF SYSTEMS: As per history of present illness. PHYSICAL EXAMINATION: GENERAL: On arrival to the Emergency Room, the patient looked well and was clearly in no apparent respiratory distress, slightly pale, but no jaundice, cyanosis, or thyromegaly. No jugular venous distension. No limb edema. VITAL SIGNS: Her heart rate was 58, blood pressure was 196/78, temperature was 97.8, respiratory rate was 22, and oxygen saturation was 94%. HEAD, EYES, EAR, NOSE, AND THROAT: Showed normocephalic, atraumatic. NECK: Supple. HEART: Showed normal first and second heart sounds. No gallop, rub, or murmur. CHEST: Clear to auscultation. No crepitation or rhonchi. ABDOMEN: Distended, soft, nontender. NEUROLOGIC: She is awake, alert, responding appropriately. All cranial nerves intact. She moves extremities without difficulty. She ambulates without assistance or assistive devices. LABORATORY DATA: Her lab work on admission showed a white cell count of 4200, hemoglobin 13, hematocrit 38, MCV 90, and platelet count of 119,000. Her chemistry showed a serum sodium 138, potassium 4, chloride 104, bicarbonate 29, anion gap of 5, BUN 25, creatinine 1.4, estimated GFR was mL per minute. Her glucose was 192, Calcium was 8.8. Total bilirubin, AST, ALT, alkaline phosphatase were normal. Total protein was 6.3, albumin 3.4. Her first set of cardiac enzyme was less than 0.017. Urinalysis is unremarkable. Her EKG showed that she was in sinus rhythm with a heart rate of 58, her QRS complex was 104 milliseconds then corrected to interval 424 millisecond. PLAN: The patient was admitted. We will discontinue her metoprolol and Cartia XT, She was started on amlodipine and lisinopril. We will monitor her closely to see how she responds to the newer medication adjustment. We have already consulted the supervisor grove and we will do 2 more sets of cardiac enzyme and decide on further management accordingly. LAYO PAULSON MD DR: SALTY/pamela JOB#: [id number] / [id number]
--- NOTE | 2018-05-25 00:59 | PN ---
DATE: 05/24/2018 SUBJECTIVE: The patient is resting slightly propped up in bed, in no apparent distress. On questioning her, she denied any complaints. Denied any chest pain or shortness of breath. OBJECTIVE: GENERAL: On examining her, she looked well and was clearly in no apparent respiratory distress, slightly pale. No jaundice, cyanosis, or thyromegaly. No jugular venous distension. No lower limb edema. VITAL SIGNS: Her heart rate was 65, blood pressure was 2____/103. She has not had her lisinopril and amlodipine at the time we checked her blood pressure. HEAD, EYES, EARS, NOSE AND THROAT: Showed normocephalic, atraumatic. NECK: Supple. HEART: Showed normal first and second heart sounds. No gallop, rub or murmur. CHEST: Clear to auscultation. No crepitation or rhonchi. ABDOMEN: Distended, soft, nontender. NEUROLOGIC: She was awake, alert, responding appropriately. Her cranial nerves intact. She moves extremities without difficulty. She ambulates without assistance or assistive devices. Her intake and output were incompletely recorded. LABORATORY DATA: Showed a white cell count 3500, hemoglobin 12, hematocrit 36, MCV 90 and platelet count of 111,000 with normal manual differential. Her chemistry showed a serum sodium 139, potassium 4, chloride 105, bicarbonate 28, anion gap of 6, BUN 23, creatinine was 1.3. Estimated GFR was 40 mL per minute. Her glucose was 110, calcium was 8.9. She has 2 more sets of cardiac enzyme, both of them showed troponin to be less than 0.017. ASSESSMENT: 1. Symptomatic bradycardia, for which her metoprolol and Cardizem were discontinued. 2. Hypertension, for which she was started on amlodipine and lisinopril. 3. Atrial fibrillation. The patient is rate controlled, well anticoagulated, on apixaban. 4. Hyperlipidemia. 5. Type 2 diabetes. PLAN: Continue with amlodipine and lisinopril to control her blood pressure. We will continue to monitor her blood sugar. If she remains stable, she can be discharged home. If she reverts into atrial fibrillation, rapid ventricular response, she would probably need to go back to [facility] where she underwent ablation and/or pacemaker placement. LAYO PAULSON MD DR: Lauren JOB#: [id number] / [id number]
[2018-05-25 01:25] VITALS: BP 152/87
[2018-05-25 02:30] VITALS: BP_SYST 158; BP_DIAS 85; BP_DIAS 86
[2018-05-25 05:39] VITALS: BP 158/82
[2018-05-25] MEDS: OMEGA-3 FATTY ACIDS/FISH OIL 1,000 MG CAPSULE. PO SCH (09:00)
[2018-05-25] MEDS: GLIMEPIRIDE 2 MG TABLET PO SCH (09:00)
[2018-05-25] MEDS: amLODIPine BESYLATE 10 MG TABLET PO SCH (09:00)
[2018-05-25] MEDS: ALLOPURINOL 100 MG TABLET. PO SCH (09:00)
[2018-05-25] MEDS: DOCUSATE SODIUM 100 MG CAPSULE PO SCH (09:00)
[2018-05-25] MEDS: APIXABAN 5 MG TABLET. PO SCH (09:00)
[2018-05-25] MEDS: CYANOCOBALAMIN (VITAMIN B-12) 1,000 MCG TABLET. PO SCH (09:00)
[2018-05-25] MEDS: hydrALAZINE 25 MG TABLET PO SCH ×2 (09:00→11:50)
[2018-05-25] MEDS: GABAPENTIN 100 MG CAPSULE. PO SCH (09:00)
[2018-05-25] MEDS: LISINOPRIL 20 MG TABLET PO SCH (09:00)
[2018-05-25 11:18] VITALS: BP 171/74
[2018-05-25] MEDS ORDERED: HYDR-2869 PO (11:19)
[2018-05-25 11:50] VITALS: BP 171/74
--- NOTE | 2018-05-25 12:12 | DS ---
DATE OF DISCHARGE: 05/25/2018 HOSPITAL COURSE: The patient is a 73-year-old female patient, who came in with symptomatic bradycardia with heart rate that dropped down to 30. She was on both beta annie and calcium channel annie and in the form of metoprolol and Cartia XT, both were discontinued. Blood pressure medication was switched to lisinopril and amlodipine and was admitted to monitor her closely to see if she reverts back to atrial fibrillation and decision was made she remained stable in sinus rhythm to be discharged home and to follow with her solar manager as an outpatient. Likely, the patient remained stable. She continued to be in normal sinus rhythm with no further episode of bradycardia or AFib. Her blood pressure continued to be slightly elevated, so we added hydralazine, initially 25 mg 3 times a day and was increased to 50 mg twice a day and the patient will be discharged home today to continue on her amlodipine, lisinopril and hydralazine. PHYSICAL EXAMINATION: GENERAL: When I saw her this afternoon, she looked well and was clearly in no apparent distress, slightly pale, but no jaundice, cyanosis, or thyromegaly. No jugular venous distension. No lower limb edema. VITAL SIGNS: Her heart rate was 63, blood pressure was 171/74, temperature was 97.5, respiratory rate 20, and oxygen saturation was 96%. HEAD, EYES, EARS, NOSE AND THROAT: Showed normocephalic, atraumatic. NECK: Supple. HEART: Showed normal first and second sounds. No gallop, rub or murmur. CHEST: Clear to auscultation. No crepitation or rhonchi. ABDOMEN: Distended, soft, nontender. No guarding or rigidity. No organomegaly. All hernial orifice intact. Bowel sounds normal. NEUROLOGIC: She is awake, alert, responding appropriately. All cranial nerves intact. EXTREMITIES: She moves extremities without difficulty. She ambulates without assistance or assistive devices. LABORATORY DATA: Showed a white cell count of 3500, hemoglobin 12, hematocrit 36, MCV 90 and platelet count 111,000. Her chemistry showed a serum sodium 139, potassium 4, chloride 105, bicarbonate 28, anion gap of 6, BUN 23, creatinine 1.3, estimated GFR was 40 mL per minute. Her glucose was 200, calcium was 8.9. She has 3 sets of cardiac enzymes that were less than 0.017. DISCHARGE MEDICATIONS: She was discharged home to continue on hydralazine 50 mg twice a day, allopurinol 100 mg once a day, amlodipine besylate 10 mg once a day, apixaban 5 mg twice a day, cholecalciferol, vitamin D3 2000 international units once a day, cyanocobalamin for vitamin B12 5000 mcg once a day, Colace, sodium 100 mg twice a day, fish oil 1 capsule twice a day, gabapentin 200 mg twice a day, glimepiride 4 mg b.i.d., lisinopril 40 mg once a day and simvastatin 20 mg at bedtime. FINAL DISCHARGE DIAGNOSES: 1.Symptomatic bradycardia secondary to beta annie and calcium channel annie, resolved. Her metoprolol and Cartia XT was discontinued. 2.Hypertension, now on amlodipine, hydralazine and lisinopril. 3.Atrial fibrillation, currently in normal sinus rhythm, rate controlled, well anticoagulate with apixaban. 4.Gout, on allopurinol, type 2 diabetes for which she is on glimepiride. 5.Hyperlipidemia, on simvastatin. LAYO PAULSON MD DR: SALTY/pamela JOB#: [id number] / [id number]
--- NOTE | 2018-05-26 13:25 | EKG ---
[address] [address] Test Date: 2018-05-24 Test Time: 05:46:15 Pat Name: MARANDA BANDA Department: Room: 123 A Gender: Residential Installer: : 1945 Requested By: STEVEN HAYNES Order Number: [id number] Reading MD: Steven Haynes MD Measurements Intervals [place] Rate: P: [place]: QRS: QRSD: T: QT: QTc: Interpretive Statements SINUS BRADYCARDIA PAC'S Electronically Signed On 05-27-2018 10:13:46 CDT by Steven Haynes MD
== END 2018-05-25 12:15 | disposition home or self-care (01) | DRG 310 ==
LOC: ER 17:59 → 1 SOUTH 21:00
PROVIDERS: ADMIT Internal Medicine; ATTEND Internal Medicine
DX: R00.1 Bradycardia, unspecified (principal); E11.9 Type 2 diabetes mellitus without complications; E78.5 Hyperlipidemia, unspecified; E78.00 Pure hypercholesterolemia, unspecified; I10 Essential (primary) hypertension; T46.1X5A Adverse effect of calcium-channel blockers, initial encounter; T44.7X5A Adverse effect of beta-adrenoreceptor antagonists, initial encounter; M15.9 Polyosteoarthritis, unspecified; M10.9 Gout, unspecified; I48.91 Unspecified atrial fibrillation; Z96.611 Presence of right artificial shoulder joint; Z96.612 Presence of left artificial shoulder joint; Z96.653 Presence of artificial knee joint, bilateral; Z90.49 Acquired absence of other specified parts of digestive tract; Y92.89 Other specified places as the place of occurrence of the external cause
CPT/HCPCS: 36415; 71045; 80048; 80053; 81001; 82947; 84443; 84484; 85025; 87086; 87641; 93005; 99285-25

== ENCOUNTER 2019-08-11 19:55 | Emergency (ER) | payer MEDICARE ==
[~2019-08-11] VITALS: Ht 167.6 cm; Wt 79.4 kg
[~2019-08-11 19:55] MED LIST changes: +AMLO10TA8 PO; -CARV6.252 PO; +CARV6.2541 PO; +HYDR-2869 PO; -MELA3TAB2 PO; +MELA3TAB56 PO; +SIMV20TA3 PO
[2019-08-11 21:33] LABS: BASO % 1 % (0-3); EOS % 0 % (0-3); HEMATOCRIT 39.1 % (36.0-47.0); HEMOGLOBIN 12.9 g/dL (12.0-15.5); LYMPH # 1.2 x10^3/uL (1.0-4.8); LYMPH % 27 % (24-48); MEAN CORPUSCULAR HEMOGLOBIN 31 pg (25-35); MEAN CORPUSCULAR HGB CONC 33 g/dL (31-37); MEAN CORPUSCULAR VOLUME 93 fL (79-100); MONO # 0.5 x10^3/uL (0.0-1.1); MONO % 11 % (0-9); NEUT # 2.7 x10^3uL (1.8-7.7); NEUT % 62 % (31-73); PLATELET COUNT 129 x10^3/uL (140-400); RED CELL DISTRIBUTION WIDTH 13.6 % (11.5-14.5); WHITE BLOOD COUNT 4.4 x10^3/uL (4.0-11.0)
--- NOTE | 2019-08-11 21:43 | PHYS DOC ---
Past History Past Medical History: Arthritis, Diabetes, High Cholesterol, Hypertension, Other Past Surgical History: Appendectomy, Cholecystectomy, Knee Replacement, Tonsillectomy Alcohol Use: None Drug Use: None Adult General Chief Complaint Chief Complaint: BRADYCARDIA HPI HPI Patient is a 74 year old female who presents with complaint of bradycardia. The patient states that she attended an appointment with her venture capital analyst earlier today. She states during that visit they checked her pulse and registered at 25. Patient states that she felt slightly lightheaded at that time and had some shortness of breath with exertion. Notes currently she is having no symptoms. States that she was recommended to be seen in the emergency department but did not go immediately. States that she has had no associated chest pain, vomiting, or fever. Has had history of atrial fibrillation. Currently on Toprol XL. States that she took her regular morning dose. States that she has occasionally had lightheadedness over the past couple weeks. Has history of diabetes mellitus previously on metformin but was taken off of metformin. States that she is currently on glimepiride for treatment. Review of Systems Review of Systems Constitutional: Denies fever or chills [] Eyes: Denies change in visual acuity, redness, or eye pain [] HENT: Denies nasal congestion or sore throat [] Respiratory: Denies cough or shortness of breath [] Cardiovascular: Bradycardia, denies chest pain or edema[] GI: Denies abdominal pain, nausea, vomiting, bloody stools or diarrhea [] : Denies dysuria or hematuria [] Musculoskeletal: Denies back pain or joint pain [] Integument: Denies rash or skin lesions [] Neurologic: Lightheadedness, denies headache, focal weakness or sensory changes [] All other systems were reviewed and found to be within normal limits, except as documented in this note. Allergies Allergies Allergies Coded Allergies Type Severity Reaction Last Updated Verified levofloxacin Allergy Intermediate 04/12/16 Yes verapamil Allergy Intermediate 04/12/16 Yes I S O L A T I O N *CONTACT* Allergy Unknown 01/08/18 Yes Physical Exam Physical Exam Constitutional: Well developed, well nourished, no acute distress, non-toxic appearance. [] HENT: Normocephalic, atraumatic, bilateral external ears normal, oropharynx moist, no oral exudates, nose normal. [] Eyes: PERRLA, EOMI, conjunctiva normal, no discharge. [] Neck: Normal range of motion, no tenderness, supple, no stridor. [] Cardiovascular:Heart rate regular rhythm, no murmur [] Lungs & Thorax: Bilateral breath sounds clear to auscultation [] Abdomen: Bowel sounds normal, soft, no tenderness, no masses, no pulsatile masses. [] Skin: Warm, dry, no erythema, no rash. [] Back: No tenderness, no CVA tenderness. [] Extremities: No tenderness, no cyanosis, no clubbing, ROM intact, no edema. [] Neurologic: Alert and oriented X 3, normal motor function, normal sensory function, no focal deficits noted. [] Current Patient Data Vital Signs Vital Signs Date Time Temp Pulse Resp B/P (MAP) Pulse Ox O2 Delivery O2 Flow Rate FiO2 08/11/19 19:55 98.3 54 18 96 Room Air Lab Results Laboratory Tests Test 08/11/19 20:55 White Blood Count 4.4 x10^3/uL Red Blood Count 4.20 x10^6/uL Hemoglobin 12.9 g/dL Hematocrit 39.1 % Mean Corpuscular Volume 93 fL Mean Corpuscular Hemoglobin 31 pg Mean Corpuscular Hemoglobin Concent 33 g/dL Red Cell Distribution Width 13.6 % Platelet Count 129 x10^3/uL Neutrophils (%) (Auto) 62 % Lymphocytes (%) (Auto) 27 % Monocytes (%) (Auto) 11 % Eosinophils (%) (Auto) 0 % Basophils (%) (Auto) 1 % Neutrophils # (Auto) 2.7 x10^3uL Lymphocytes # (Auto) 1.2 x10^3/uL Monocytes # (Auto) 0.5 x10^3/uL Eosinophils # (Auto) 0.0 x10^3/uL Basophils # (Auto) 0.0 x10^3/uL Sodium Level 135 mmol/L Potassium Level 4.1 mmol/L Chloride Level 99 mmol/L Carbon Dioxide Level 22 mmol/L Anion Gap 14 Blood Urea Nitrogen 26 mg/dL Creatinine 1.7 mg/dL Estimated GFR (Cockcroft-Gault) 29.4 BUN/Creatinine Ratio 15 Glucose Level 416 mg/dL Calcium Level 8.9 mg/dL Total Bilirubin 0.2 mg/dL Aspartate Amino Transf (AST/SGOT) 12 U/L Alanine Aminotransferase (ALT/SGPT) 18 U/L Alkaline Phosphatase 92 U/L Troponin I Quantitative < 0.017 ng/mL Total Protein 6.0 g/dL Albumin 3.4 g/dL Albumin/Globulin Ratio 1.3 Current Medications Medications (Trade) Dose Ordered Sig/Katherine Route PRN Reason Start Time Stop Time Status Last Admin Dose Admin Sodium Chloride 1,000 ml @ 1,000 mls/hr 1X ONCE IV 08/11/19 22:00 08/11/19 22:59 08/11/19 22:16 EKG EKG EKG #1 at 2036 interpreted by me: Heart rate 62, bigeminy, normal axis, no acute ST/T-wave abnormalities present EKG #2 at 2203 interpreted by me: Heart rate 60, sinus rhythm, normal intervals, normal axis, no acute ST/T-wave abnormalities present[] Radiology/Procedures Radiology/Procedures Not performed[] Course & Med Decision Making Course & Med Decision Making Pertinent Labs and Imaging studies reviewed. (See chart for details) Patient started on IV fluids in the emergency department. The patient's heart rate was monitored in the emergency department. Initially found to have bigeminy which resolved spontaneously. Has remained in sinus rhythm or most of her emergency department evaluation. Denies any active symptoms of lightheadedness, nausea, chest pain, or feeling faint. Patient was found to have elevated blood sugar just above 400. Spoke with patient regarding hyperglycemia is a possible contributive factor to ongoing dehydration. Advised follow-up with primary doctor in the next 2 days for reevaluation and possible need for changes to current diabetes mellitus regimen. Also advised patient follow-up with cardiology as outpatient for reevaluation. Recommended return to the emergency department for any worsening symptoms. Patient was understanding and in agreement with treatment plan. Dragon Disclaimer Dragon Disclaimer This electronic medical record was generated, in whole or in part, using a voice recognition dictation system. Departure Departure: Impression: Primary Impression: Bradycardia Additional Impressions: Uncontrolled diabetes mellitus Dehydration Disposition: 01 HOME, SELF-CARE Condition: IMPROVED Referrals: TRISTAN PORTILLO MD (PCP) Patient Instructions: Bradycardia, Dehydration, Adult, Hyperglycemia Additional Instructions: Your blood sugars were found to be elevated at today's visit. You may need to see your primary doctor to have your current diabetic medication regimen evaluated. Follow-up with your primary care provider in the next 1-2 days for reevaluation. It is also recommended that he follow-up with your machine scallop cutter in the next 2 days for reevaluation. Return to the emergency department for any worsening symptoms. Problem Qualifiers Additional Impressions: Uncontrolled diabetes mellitus Diabetes mellitus type: type 2 Glycemic state: with hyperglycemia Qualified Codes: E11.65 - Type 2 diabetes mellitus with hyperglycemia ROSE CARVER MD Aug 11, 2019 21:43
[2019-08-11 21:50] LABS: ALBUMIN 3.4 g/dL (3.4-5.0); ALBUMIN/GLOBULIN RATIO 1.3 (1.0-1.7); CALCIUM 8.9 mg/dL (8.5-10.1); CREATININE 1.7 mg/dL (0.6-1.0); GFR 29.4; POTASSIUM 4.1 mmol/L (3.5-5.1); TOTAL BILIRUBIN 0.2 mg/dL (0.2-1.0)
[2019-08-11] MEDS ORDERED: IV NORMAL SALINE 1,000ML 1,000 ML IV ONE (22:00)
--- NOTE | 2019-08-12 00:29 | EKG ---
[address] [address] Test Date: 2019-08-11 Test Time: 22:04:57 Pat Name: MARANDA BANDA Department: Room: Gender: F Catshovel Driver: : 1945 Requested By: ROSE CARVER Order Number: [id number] Reading MD: Measurements Intervals [place] Rate: 60 P: -12 [place]: 144 QRS: 27 QRSD: 100 T: 68 QT: 406 QTc: 406 Interpretive Statements SINUS ARRHYTHMIA T ABNORMALITY IN HIGH LATERAL LEADS ABNORMAL ECG RI6.01 No previous ECG available for comparison
--- NOTE | 2019-08-12 00:41 | EKG ---
[address] [address] Test Date: 2019-08-11 Test Time: 20:37:14 Pat Name: MARANDA BANDA Department: Room: Gender: F Food Stand Manager: AMALIA : 1945 Requested By: ROSE CARVER Order Number: [id number] Reading MD: Measurements Intervals [place] Rate: 62 P: [place]: QRS: 28 QRSD: 98 T: 67 QT: 418 QTc: 427 Interpretive Statements IRREGULAR RHYTHM, NO P-WAVE FOUND T ABNORMALITY IN HIGH LATERAL LEADS ABNORMAL ECG RI6.01 No previous ECG available for comparison
[2019-08-12 03:30] VITALS: BP 162/75
== END 2019-08-11 23:35 | disposition home or self-care (01) ==
LOC: ER 19:55
DX: E11.65 Type 2 diabetes mellitus with hyperglycemia (principal); E86.0 Dehydration; R00.1 Bradycardia, unspecified; M19.90 Unspecified osteoarthritis, unspecified site; E78.00 Pure hypercholesterolemia, unspecified; I10 Essential (primary) hypertension; Z88.1 Allergy status to other antibiotic agents; Z88.8 Allergy status to other drugs, medicaments and biological substances; Z91.041 Radiographic dye allergy status
CPT/HCPCS: 36415; 80053; 84484; 85025; 93005; 96360; 99285-25; J7030

== ENCOUNTER → 2019-10-12 | Outpatient (CLI) | payer MEDICARE ==
[2019-08-11 22:49] VITALS: BP 156/82
[~2019-10-12] MED LIST changes: +ASCO250T55 PO; +CINN500C2 PO; +DIPH25TA26 PO; +DIPH50CA59 PO; -GLIM4TAB2 PO; +GLIM4TAB8 PO; +HYDR-2155 PO; +INSU100I13 SQ; +METO25TA2 PO; +SIMV20TA18 PO; -SIMV20TA3 PO; +SIMV40TA18 PO; -SIMV40TA3 PO; +VALE450C2 PO
--- NOTE | 2019-10-12 17:58 | RAD ---
Exam: Chest 2 views INDICATION: Shortness of breath TECHNIQUE: Frontal and lateral views the chest Comparisons: 05/23/2018 FINDINGS: Pacer with leads terminating in the right atrium and ventricle. Bilateral shoulder arthroplasties are noted. The cardiomediastinal silhouette and pulmonary vessels are within normal limits. Strandy opacities are noted at the lung bases bilaterally. No pleural effusion. IMPRESSION: Findings likely related to bibasilar atelectasis. Electronically signed by: Cristobal Romero MD (10/12/2019 5:54 PM) [facility] [id number]
== END | disposition home or self-care (01) ==
LOC: PMG 17:21
PROVIDERS: ATTEND Registered Nurse
DX: R05 Cough (principal); Z96.612 Presence of left artificial shoulder joint; Z96.611 Presence of right artificial shoulder joint
CPT/HCPCS: 71046

== ENCOUNTER 2019-11-11 12:41 | Inpatient (IN) | payer MEDICARE ==
[~2019-11-11] VITALS: Ht 167.6 cm; Wt 82.2 kg
[~2019-11-11 12:41] MED LIST changes: -ASCO250T55 PO; -CINN500C2 PO; -DIPH25TA26 PO; -DIPH50CA59 PO; -HYDR-2155 PO; -INSU100I13 SQ; -METO25TA2 PO; -VALE450C2 PO
[2019-11-11] MEDS ORDERED: IV DEXTROSE 5% - 0.9 % NACL 1,000 ML IV ONE (13:00)
[2019-11-11] MEDS ORDERED: GLUCAGON,HUMAN RECOMBINANT 1 MG KIT. IV ONE (13:15)
[2019-11-11] MEDS ORDERED: ONDANSETRON PF 4 MG/2 ML VIAL. IVP ONE (13:15)
--- NOTE | 2019-11-11 13:17 | RAD ---
EXAM: Chest, single view. HISTORY: Vomiting. Weakness. Hypoglycemia. COMPARISON: 05/23/2018 FINDINGS: A frontal view of the chest is obtained. There is no infiltrate, pleural effusion or pneumothorax. There is a stable prominent cardiac silhouette. There is a cardiac pacemaker with leads in expected position. There are bilateral shoulder arthroplasties. IMPRESSION: No acute pulmonary finding. Electronically signed by: Carmen Pozo MD (11/11/2019 1:14 PM) [facility]
--- NOTE | 2019-11-11 13:17 | PHYS DOC ---
Past History Past Medical History: A-Fib, Arthritis, Arrhythmia, Diabetes, High Cholesterol, Hypertension, Other Additional Past Medical Histor: non hodgkins lymphoma(in remission since 2007), stage 3 kidney disease Past Surgical History: Appendectomy, Cholecystectomy, Knee Replacement, Tonsillectomy, Other Additional Past Surgical Histo: artificial knees and shoulders Smoking: Non-smoker Alcohol Use: None Drug Use: None Adult General Chief Complaint Chief Complaint: BLOOD SUGAR PROBLEM HPI HPI Patient is a 74-year-old female with vomiting and diarrhea that has been present for most of the past 3 weeks. Initially she was diagnosed with influenza. She did get a break here in their but no persistent holding of the vomiting and diarrhea. She was seen in the emergency department in [place], [place] yesterday, due to concern of stroke like symptoms. She was found to be hypoglycemic and have a urinary tract infection. She reports being given a dose of antibiotics through an IV and being discharged. She is a diabetic patient. She has had no blood in her emesis. No blood in her stool. No recent travel.[] Review of Systems Review of Systems Constitutional: Denies fever or chills [] Eyes: Denies change in visual acuity, redness, or eye pain [] HENT: Denies nasal congestion or sore throat [] Respiratory: Denies cough or shortness of breath [] Cardiovascular: No chest pain or palpitations[] GI: See history of present illness[] : Denies dysuria or hematuria [] Musculoskeletal: Denies back pain or joint pain [] Integument: Denies rash or skin lesions [] Neurologic: Denies headache, focal weakness or sensory changes [] Endocrine: Denies polyuria or polydipsia [] All other systems were reviewed and found to be within normal limits, except as documented in this note. Current Medications Current Medications Current Medications Medications (Trade) Dose Ordered Sig/Katherine Start Time Stop Time Status Last Admin Dose Admin Dextrose/Sodium Chloride 1,000 ml @ 0 mls/hr 1X ONCE 11/11/19 13:00 11/11/19 13:07 DC Glucagon (Glucagen Kit) 1 mg 1X ONCE 11/11/19 13:15 11/11/19 13:16 Ondansetron HCl (Zofran) 4 mg 1X ONCE 11/11/19 13:15 11/11/19 13:16 Allergies Allergies Allergies Coded Allergies Type Severity Reaction Last Updated Verified levofloxacin Allergy Intermediate 04/12/16 Yes verapamil Allergy Intermediate 04/12/16 Yes I S O L A T I O N *CONTACT* Allergy Unknown 01/08/18 Yes Physical Exam Physical Exam Constitutional: Well developed, well nourished, no acute distress, ill appearance. [] HENT: Normocephalic, atraumatic, bilateral external ears normal, oropharynx dry, no oral exudates, nose normal. [] Eyes: PERRLA, EOMI, conjunctiva normal, no discharge. [] Neck: Normal range of motion, no tenderness, supple, no stridor. [] Cardiovascular:Heart rate regular rhythm, no murmur [] Lungs & Thorax: Bilateral breath sounds clear to auscultation [] Abdomen: Bowel sounds normal, soft, no tenderness, no masses, no pulsatile masses. [] Skin: Warm, dry, no erythema, no rash. [] Back: No tenderness, no CVA tenderness. [] Extremities: No tenderness, no cyanosis, no clubbing, ROM intact, no edema. [] Neurologic: Alert and oriented X 3, normal motor function, normal sensory function, no focal deficits noted. [] Psychologic: Affect normal, judgement normal, mood normal. [] EKG EKG EKG shows a sinus rhythm at 82 bpm, left axis, no ST elevation. QTC of 419 ms, interpreted by me at 1314. Compared with EKG of 08/11/2019 no acute changes are present.[] Radiology/Procedures Radiology/Procedures PROCEDURE: PORTABLE CHEST 1V EXAM: Chest, single view. HISTORY: Vomiting. Weakness. Hypoglycemia. COMPARISON: 05/23/2018 FINDINGS: A frontal view of the chest is obtained. There is no infiltrate, pleural effusion or pneumothorax. There is a stable prominent cardiac silhouette. There is a cardiac pacemaker with leads in expected position. There are bilateral shoulder arthroplasties. IMPRESSION: No acute pulmonary finding.[] Course & Med Decision Making Course & Med Decision Making Pertinent Labs and Imaging studies reviewed. (See chart for details) Emergency department course: Patient arrived, was placed in bed, and tolerated exam well. She was transported to and from radiology with any complications. After the return of laboratory and imaging findings, these were discussed with patient who voiced understanding. All questions were answered. Consultation was made with the hospitalist service for admission. She was admitted in improved condition. Medical decision makin-year-old female with hypoglycemia that appears to be recurrent given that she was seen at the ER in [place] last night/early this morning. She most likely has a metabolic acidosis given that her bicarbonate is low at 17. On review of her records from [place], this 17 bicarbonate looks like it has improved from 15 early this morning. Do not have a specific source for this. There is no evidence of elevated lactate level. Her urinary tract infection seems to have improved. No evidence of this being an acute coronary syndrome. No evidence of pneumonia or pneumothorax.[] Dragon Disclaimer Dragon Disclaimer This electronic medical record was generated, in whole or in part, using a voice recognition dictation system. Departure Departure: Impression: Primary Impression: Hypoglycemia Additional Impression: Nausea vomiting and diarrhea Disposition: ADMITTED INPATIENT Admitting Physician: Marah Kohli Condition: IMPROVED Referrals: [facility] (PCP) Problem Qualifiers ADIEL MANLEY DO Nov 11, 2019 13:17
[2019-11-11 13:40] LABS: BASO % 1 % (0-3); EOS % 0 % (0-3); HEMATOCRIT 39.5 % (36.0-47.0); HEMOGLOBIN 12.7 g/dL (12.0-15.5); LYMPH # 0.7 x10^3/uL (1.0-4.8); LYMPH % 14 % (24-48); MEAN CORPUSCULAR HEMOGLOBIN 30 pg (25-35); MEAN CORPUSCULAR HGB CONC 32 g/dL (31-37); MEAN CORPUSCULAR VOLUME 92 fL (79-100); MONO # 0.5 x10^3/uL (0.0-1.1); MONO % 11 % (0-9); NEUT # 3.6 x10^3uL (1.8-7.7); NEUT % 74 % (31-73); PLATELET COUNT 167 x10^3/uL (140-400); RED CELL DISTRIBUTION WIDTH 14.9 % (11.5-14.5); WHITE BLOOD COUNT 4.8 x10^3/uL (4.0-11.0)
[2019-11-11 13:59] LABS: CALCIUM 8.6 mg/dL (8.5-10.1); GFR 54.2; POTASSIUM 3.8 mmol/L (3.5-5.1)
[2019-11-11 14:05] LABS: ALBUMIN/GLOBULIN RATIO 0.9 (1.0-1.7); TOTAL BILIRUBIN 0.2 mg/dL (0.2-1.0); TOTAL PROTEIN 6.2 g/dL (6.4-8.2)
[2019-11-11 14:52] LABS: BACTERIA,URINE 0 /HPF (0-FEW); BILIRUBIN,URINE NEG (NEG); CLARITY,URINE CLEAR; COLOR,URINE YELLOW; GLUCOSE,URINE 250 mg/dL (NEG); NITRITE,URINE NEG (NEG); RBC,URINE 0 /HPF (0-2); SQUAMOUS EPITHELIAL CELL,UR FEW /LPF; UROBILINOGEN,URINE 0.2 mg/dL (0.2 mg/dL); WBC,URINE OCC /HPF (0-4)
[2019-11-11] MEDS ORDERED: IV NORMAL SALINE 1,000ML 1,000 ML IV SCH (15:09)
[2019-11-11] MEDS ORDERED: ONDANSETRON PF 4 MG/2 ML VIAL. IV PRN (15:15)
[2019-11-11] MEDS ORDERED: ACETAMINOPHEN 325 MG TABLET PO PRN (15:15)
[2019-11-11 15:56] VITALS: BP 134/80
[2019-11-11] MEDS ORDERED: CINN500C2 PO (16:53)
[2019-11-11] MEDS ORDERED: INSU100I13 SQ (16:53)
[2019-11-11] MEDS ORDERED: ASCO250T55 PO (16:53)
[2019-11-11] MEDS ORDERED: HYDR-2155 PO (16:53)
[2019-11-11] MEDS ORDERED: METO25TA2 PO (16:53)
[2019-11-11] MEDS ORDERED: DIPH25TA26 PO (16:53)
[2019-11-11] MEDS ORDERED: VALE450C2 PO (16:53)
[2019-11-11] MEDS ORDERED: DIPH50CA59 PO (16:53)
[2019-11-11] MEDS ORDERED: SODIUM BICARBONATE IVF 150 MEQ in IV DEXTROSE 5% 1,000 ML IV ONE (17:30)
[2019-11-11 19:00] VITALS: BP 112/65
[2019-11-11] MEDS ORDERED: HYDROcodone/APAP 5/325MG 1 TAB TABLET PO PRN (19:00)
[2019-11-11] MEDS: CHOLECALCIFEROL (VITAMIN D3) 1,000 UNIT TABLET PO SCH (20:18)
[2019-11-11] MEDS: diphenhydrAMINE HCL 25 MG CAPSULE PO SCH (20:19)
[2019-11-11] MEDS: SIMVASTATIN 20 MG TABLET PO SCH (20:19)
[2019-11-11] MEDS: LISINOPRIL 20 MG TABLET PO SCH (20:19)
[2019-11-11] MEDS: GABAPENTIN 100 MG CAPSULE. PO SCH (20:19)
[2019-11-11] MEDS: OMEGA-3 FATTY ACIDS/FISH OIL 1,000 MG CAPSULE. PO SCH (20:19)
[2019-11-11] MEDS: DOCUSATE SODIUM 100 MG CAPSULE PO SCH (20:22)
[2019-11-11 23:00] VITALS: BP 131/77
[2019-11-12 06:20] VITALS: BP 130/82
[2019-11-12 06:52] LABS: BASO % 1 % (0-3); EOS % 0 % (0-3); HEMATOCRIT 36.2 % (36.0-47.0); HEMOGLOBIN 11.8 g/dL (12.0-15.5); LYMPH % 35 % (24-48); MEAN CORPUSCULAR HEMOGLOBIN 30 pg (25-35); MEAN CORPUSCULAR HGB CONC 33 g/dL (31-37); MEAN CORPUSCULAR VOLUME 92 fL (79-100); MONO # 0.4 x10^3/uL (0.0-1.1); MONO % 15 % (0-9); NEUT # 1.4 x10^3uL (1.8-7.7); NEUT % 49 % (31-73); PLATELET COUNT 150 x10^3/uL (140-400); RED BLOOD COUNT 3.95 x10^6/uL (3.50-5.40); RED CELL DISTRIBUTION WIDTH 14.6 % (11.5-14.5); WHITE BLOOD COUNT 2.8 x10^3/uL (4.0-11.0)
[2019-11-12 06:57] LABS: CALCIUM 8.4 mg/dL (8.5-10.1); CREATININE 1.1 mg/dL (0.6-1.0); GFR 48.6; POTASSIUM 3.3 mmol/L (3.5-5.1)
[2019-11-12 07:23] LABS: % ATYL 3 % (0-0); % BANDS 7 % (0-9); % LYMPHS 30 % (24-48); % MONOS 8 % (0-10); % MYELOS 1 % (0-0); % SEGS 51 % (35-66)
[2019-11-12 07:38] LABS: OVALOCYTES OCC; TEAR DROP CELLS OCC
[2019-11-12 07:39] LABS: PLT ESTIMATE ADEQUATE (ADEQUATE)
[2019-11-12 07:42] LABS: POLYCHROMASIA SLIGHT
[2019-11-12] MEDS ORDERED: POTASSIUM CHLORIDE 20 MEQ TABLET.ER. PO ONE (08:10)
[2019-11-12] MEDS: ASCORBIC ACID 500 MG TABLET PO SCH (09:00)
[2019-11-12] MEDS: DOCUSATE SODIUM 100 MG CAPSULE PO SCH ×2 (09:00→21:24)
[2019-11-12] MEDS: LISINOPRIL 20 MG TABLET PO SCH ×3 (09:00→21:25)
[2019-11-12] MEDS: ALLOPURINOL 100 MG TABLET. PO SCH (09:21)
[2019-11-12] MEDS: OMEGA-3 FATTY ACIDS/FISH OIL 1,000 MG CAPSULE. PO SCH ×2 (09:22→21:25)
[2019-11-12] MEDS: METOPROLOL SUCC 24HR ER 25 MG TAB.ER.24H. PO SCH (09:22)
[2019-11-12] MEDS: CYANOCOBALAMIN (VITAMIN B-12) 1,000 MCG TABLET. PO SCH (09:23)
[2019-11-12] MEDS: GABAPENTIN 100 MG CAPSULE. PO SCH ×2 (09:23→21:24)
[2019-11-12] MEDS: amLODIPine BESYLATE 10 MG TABLET PO SCH (09:23)
[2019-11-12 11:45] VITALS: BP 132/77
[2019-11-12 16:06] VITALS: BP 144/75
[2019-11-12] MEDS: POTASSIUM CL 20MEQ IN 0.9%NACL 1,000 ML IV SCH (16:49)
--- NOTE | 2019-11-12 16:53 | HP ---
ADMIT DATE: 11/11/2019 HISTORY OF PRESENT ILLNESS: The patient is a 74-year-old female patient, who came to the Emergency Room with recurrent episode of hypoglycemia. The patient has not been feeling well over the last 3 weeks. She was initially diagnosed with influenza. She did get a break here and there, but no persistent holding with the vomiting and diarrhea. She was seen in the Emergency Room [place], [place] on 11/11/2019 and she was found to be hypoglycemic and had urinary tract infection. She reports being given a dose of antibiotic through an IV and being discharged. She is a diabetic patient. She has had no blood in her emesis and no blood in her stool. No recent travel. By the time she arrived to us yesterday, she was also hypoglycemic with a blood sugar of 39 mg/dL and she was given 1 mg of glucagon and an amp of 50% dextrose and her blood sugar improved and was admitted for further evaluation and treatment. On her lab work, initially was 45 mg/dL and she was found to have also acidosis with low bicarbonate. We did start her on D5 with an amp of bicarbonate in D5W. She was also started on IV, however, her urinalysis was essentially unremarkable and was admitted with the diagnosis of recurrent bouts of nausea, vomiting, and persistent hypoglycemia likely due to fact that she is on a long-acting oral hypoglycemic agent as well as she has also stage 3 chronic kidney disease. PAST MEDICAL HISTORY: Significant for type 2 diabetes mellitus, hypertension, chronic kidney disease, sick sinus syndrome, atrial fibrillation, osteoarthritis, and gout. She was diagnosed with non-Hodgkin's lymphoma in 2006. Apparently, she has been in the remission since 2007. PAST SURGICAL HISTORY: Significant for bilateral total shoulder replacement, bilateral total knee arthroplasty, permanent pacemaker placement, tonsillectomy, appendectomy, and cholecystectomy. ALLERGIES: She is allergic to LEVOFLOXACIN and VERAPAMIL. MEDICATIONS: She is currently on following medication: She is on diphenhydramine 50 mg p.o. daily and diphenhydramine 25 mg at bedtime, simvastatin 20 mg at bedtime, hydralazine 50 mg twice a day, metoprolol succinate 25 mg daily, amlodipine besylate 10 mg daily, lisinopril 20 mg twice a day, hydrocodone/APAP 5/____ one tablet every 6 hours, gabapentin 100 mg twice a day, Colace 100 mg twice a day, Lantus insulin 15 units at bedtime, and glimepiride 4 mg twice a day. She is also on cyanocobalamin 5000 mcg tablet once a day, ascorbic acid/ascorbate sodium 500 mg once a day, cholecalciferol 2000 international units once a day, fish oil 1 capsule twice a day, allopurinol 100 mg daily, cinnamon bark 1200 mg once a day, and valerian root 500 mg p.o. daily. FAMILY HISTORY: She has one brother, younger and has similar medical problems and she does not know her father, as he when she was very young. Her mother at the age of 72 because of the complication of end-stage renal disease, as she stopped hemodialysis. SOCIAL HISTORY: She is , has 1 son alive and one son at the age of 43 because of myocardial infarction and complication of diabetes. She is a nonsmoker and does not drink alcohol. 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 She is retired since she was diagnosed with non-Hodgkin lymphoma. REVIEW OF SYSTEMS: The patient denied any blurring of vision, cataract, glaucoma, or macular degeneration. Denied any earache, tinnitus, or sensorineural deafness. Denied any nosebleeds, stuffy nose, or postnasal drip. Denied any sore throat, sore tongue, toothache, hoarseness of voice, or difficulty swallowing. Did complain of nausea, vomiting, as well as diarrhea, but denied any hematemesis, melena, or hematochezia. Denied any dysuria, frequency, or hematuria. Denied any chest pain, shortness of breath, orthopnea, or paroxysmal nocturnal dyspnea. Denied any cough, phlegm, or hemoptysis. Denied any dizziness or lightheadedness. PHYSICAL EXAMINATION: GENERAL: On arrival to the Emergency Room, she looked well and was clearly in no apparent respiratory distress. No pallor, jaundice, cyanosis, or thyromegaly. No jugular venous distention. No limb edema. VITAL SIGNS: Her heart rate was 84, blood pressure was 136/70, temperature was 97.5, respiratory rate was 18, and oxygen saturation was 97%. HEAD, EYES, EARS, NOSE, AND THROAT: Showed normocephalic and atraumatic. NECK: Supple. HEART: Showed normal first and second heart sounds with no gallop, rub, or murmur. CHEST: Clear to auscultation. No crepitation or rhonchi. ABDOMEN: Distended, soft, and nontender. NEUROLOGIC: She was awake and alert. She responds appropriately. All her cranial nerves are intact. EXTREMITIES: She moves the extremities without difficulty and she normally ambulates without assistance or assistive devices. LABORATORY WORK: On admission showed a white cell count 4800, hemoglobin 12.7, hematocrit 39.5, MCV 92, and platelet count of 167,000 with normal manual differential. Her chemistry on admission showed that her serum sodium was 140, potassium 3.8, chloride 109, bicarbonate 17, anion gap of 14, BUN 19, and creatinine 1. Estimated GFR was 54 mL per minute. Her glucose was 108 and calcium was 8.6. Total bilirubin, AST, ALT, and alkaline phosphatase were normal. Total protein was 6.2 and albumin was 3. Her urinalysis showed the urine was yellow and clear with the pH of 5.5 and specific gravity of 1.010 and the urine showed a trace of protein, a large amount of glucose, negative for ketones, blood, nitrite, and leukocyte esterase. There are no rbc's, no wbc's, and no bacteria. ASSESSMENT AND PLAN: In summary, this is a 74-year-old female patient, who was admitted with recurrent bouts of hypoglycemia. She is on both the Amaryl 4 mg twice a day as well as Lantus 15 units at bedtime. She has also recurrent bouts of nausea, vomiting, and diarrhea. We did treat her with the bicarbonate drip. We continued all her medication. We held her glimepiride as well as her Lantus. We will monitor her blood sugar closely. She probably does not need the glyburide. We need to cut down her glyburide, probably to 1 mg twice a day and we will also check her stool for C. diff and also culture and sensitivity. LAYO PAULSON MD DR: SALTY/pamela JOB#: [id number] / [id number]
--- NOTE | 2019-11-12 19:25 | EKG ---
[address] [address] Test Date: 2019-11-11 Test Time: 13:13:01 Pat Name: MARANDA BANDA Department: Room: Gender: F Felt Carbonizer: : 1945 Requested By: ADIEL MANLEY Order Number: [id number] Reading MD: Measurements Intervals [place] Rate: 82 P: -90 HI: 96 QRS: -7 QRSD: 98 T: 93 QT: 356 QTc: 419 Interpretive Statements SINUS RHYTHM LEFTWARD AXIS T ABNORMALITY IN HIGH LATERAL LEADS ABNORMAL ECG RI6.01 No previous ECG available for comparison
[2019-11-12 19:40] VITALS: BP 126/79
[2019-11-12] MEDS: diphenhydrAMINE HCL 25 MG CAPSULE PO SCH (21:25)
[2019-11-12] MEDS: SIMVASTATIN 20 MG TABLET PO SCH (21:25)
[2019-11-12] MEDS: CHOLECALCIFEROL (VITAMIN D3) 1,000 UNIT TABLET PO SCH (21:26)
[2019-11-12 22:24] VITALS: BP 129/78
[2019-11-12] MEDS ORDERED: ACETAMINOPHEN 325 MG TABLET PO PRN (23:30)
--- NOTE | 2019-11-12 23:39 | PN ---
DATE: 11/12/2019 SUBJECTIVE: The patient is a 74-year-old female patient who was admitted with recurrent episode of hypoglycemia, recurrent bouts of nausea and vomiting. She is known to have type 2 diabetes for which she is on Amaryl 4 mg twice a day as well as Lantus 15 units at bedtime. She has chronic kidney disease stage 3 and follows with Nephrology team. My plan is to continue to monitor her blood sugar and once her blood sugars remain stable, we can introduce the Lantus and a small dose of Amaryl. OBJECTIVE: GENERAL: When I examined her this afternoon, she looked well and was clearly in no apparent respiratory distress, pale, but no jaundice, cyanosis or thyromegaly. No jugular venous distention. No limb edema. VITAL SIGNS: Her heart rate was 80, blood pressure 131/77, temperature was 98.2, respiratory rate was 18 and oxygen saturation was 94%. HEAD, EYES, EARS, NOSE AND THROAT: Showed normocephalic, atraumatic. NECK: Supple. HEART: Showed normal first and second heart sounds. No gallop or murmur. CHEST: Clear to auscultation. No crepitation or rhonchi. ABDOMEN: Distended, soft, nontender. No guarding or rigidity. No organomegaly. All hernial orifice intact. Bowel sounds normal. NEUROLOGIC: She is awake, alert, responding appropriately. All cranial nerves intact. She moves extremities without difficulty. Her intake was 2375. No output was recorded. LABORATORY DATA: Her lab work this morning showed her serum sodium was 143, potassium 3.3, chloride 110, bicarbonate 22, anion gap of 11, BUN 14, creatinine was 1.1, estimated GFR was 48 and her glucose 115, calcium was 8.4. Her white cell count was 2800, hemoglobin 11.8, hematocrit 36, MCV 92 and platelet count of 150,000. ASSESSMENT AND PLAN: 1. Recurrent episode of hypoglycemia. Blood sugars seemed to be reasonably stable, has been generally between 100-200. 2. Hypokalemia, potassium is low at 3.3. We will need to replenish that obviously. We will continue with IV fluid. 3. Recurrent bouts of nausea and vomiting, seemed to have stopped, but we will continue with Zofran. As she is already on Zofran, I will arrange for CT scan of the abdomen and pelvis without contrast and send stool for Clostridium difficile. LAYO PAULSON MD DR: SALTY/pamela JOB#: [id number] / [id number]
[2019-11-13] MEDS: POTASSIUM CL 20MEQ IN 0.9%NACL 1,000 ML IV SCH ×2 (01:15→05:38)
[2019-11-13 05:00] VITALS: BP 130/81
[2019-11-13 07:50] LABS: HEMATOCRIT 30.7 % (36.0-47.0); HEMOGLOBIN 10.3 g/dL (12.0-15.5); RED BLOOD COUNT 3.44 x10^6/uL (3.50-5.40); RED CELL DISTRIBUTION WIDTH 14.3 % (11.5-14.5); WHITE BLOOD COUNT 4.4 x10^3/uL (4.0-11.0)
[2019-11-13 07:56] LABS: CALCIUM 8.3 mg/dL (8.5-10.1); CREATININE 0.9 mg/dL (0.6-1.0); GFR 61.2; MAGNESIUM 1.7 mg/dL (1.8-2.4); POTASSIUM 3.8 mmol/L (3.5-5.1)
[2019-11-13] MEDS: DOCUSATE SODIUM 100 MG CAPSULE PO SCH (09:00)
[2019-11-13] MEDS: OMEGA-3 FATTY ACIDS/FISH OIL 1,000 MG CAPSULE. PO SCH (09:41)
[2019-11-13] MEDS: GABAPENTIN 100 MG CAPSULE. PO SCH (09:42)
[2019-11-13] MEDS: ALLOPURINOL 100 MG TABLET. PO SCH (09:42)
[2019-11-13] MEDS: CYANOCOBALAMIN (VITAMIN B-12) 1,000 MCG TABLET. PO SCH (09:42)
[2019-11-13] MEDS: METOPROLOL SUCC 24HR ER 25 MG TAB.ER.24H. PO SCH (09:42)
[2019-11-13 09:43] VITALS: BP 130/81
[2019-11-13] MEDS: amLODIPine BESYLATE 10 MG TABLET PO SCH (09:43)
[2019-11-13] MEDS: ASCORBIC ACID 500 MG TABLET PO SCH (09:43)
[2019-11-13] MEDS ORDERED: INSU100I13 SQ (11:31)
--- NOTE | 2019-11-13 12:48 | DS ---
DATE OF DISCHARGE: 11/13/2019 HOSPITAL COURSE: The patient is sitting on the edge of the bed comfortably in no apparent distress. On questioning, she has denied any further episodes of nausea and vomiting. Denied any diarrhea. Denied any abdominal pain. We did hold her Lantus as well as glimepiride. Her blood sugar has been well within acceptable range without any insulin or glimepiride. PHYSICAL EXAMINATION: GENERAL: When I examined her, she looked well and was clearly in no apparent respiratory distress. No pallor, jaundice, cyanosis or thyromegaly. No jugular venous distention. No limb edema. VITAL SIGNS: Her heart rate was 79, blood pressure 130/81, temperature was 97.6, respiratory rate 20, and oxygen saturation was 93% on room air. HEAD, EYES, EARS, NOSE AND THROAT: Showed normocephalic, atraumatic. NECK: Supple. HEART: Showed normal first and second heart sounds. No gallop or murmur. CHEST: Clear to auscultation. No crepitation or rhonchi. ABDOMEN: Distended, soft, nontender. NEUROLOGIC: She is awake, alert, responding appropriately. All cranial nerves intact. She moves extremities without difficulty. She ambulates without assistance or assistive devices. Her intake was 2370, no output was recorded. LABORATORY DATA: This morning showed a serum sodium 142, potassium 3.8, chloride 111, bicarbonate 22, anion gap of 9, BUN 12, creatinine was 0.9, estimated GFR was 61 mL per minute. Her glucose was ____, calcium was 8.3, and magnesium was 1.7. Her white cell count was 4400, hemoglobin 10, hematocrit 30, MCV was 89 and platelet count of 140. Her estimated GFR was about 61 mL per minute. DISCHARGE MEDICATIONS: The patient was discharged home to continue the Lantus insulin at 10 units at bedtime. I explained to her that she should discontinue glimepiride altogether and that she continued to bottom down. She can cut down her Lantus further. Apparently, her blood sugar has been consistently elevated before when she was on glimepiride and because of impaired kidney function and her Glucophage was discontinued. She apparently has been having problem with flu and recurrent bouts of nausea, vomiting and diarrhea that might have impaired kidney function that obviously predisposed her to hypoglycemia. FINAL DISCHARGE DIAGNOSES: Recurrent episode of hypoglycemia likely because of impaired kidney function during her period of acute gastroenteritis. Other medical problems include type 2 diabetes mellitus, hypertension, chronic kidney disease, sick sinus syndrome, atrial fibrillation, osteoarthritis and gout. Apparently, she is in remission from non-Hodgkin lymphoma diagnosed in 2006. LAYO PAULSON MD DR: SALTY/pamela JOB#: [id number] / [id number]
== END 2019-11-13 12:26 | disposition home or self-care (01) | DRG 638 ==
LOC: ER 12:41 → 1 SOUTH 15:07
PROVIDERS: ADMIT Internal Medicine; ATTEND Internal Medicine
DX: E11.649 Type 2 diabetes mellitus with hypoglycemia without coma (principal); N39.0 Urinary tract infection, site not specified; E87.2 Acidosis; K52.9 Noninfective gastroenteritis and colitis, unspecified; E87.6 Hypokalemia; N18.3 Chronic kidney disease, stage 3 (moderate); I48.91 Unspecified atrial fibrillation; E78.00 Pure hypercholesterolemia, unspecified; Z96.653 Presence of artificial knee joint, bilateral; Z96.619 Presence of unspecified artificial shoulder joint; M19.90 Unspecified osteoarthritis, unspecified site; E11.22 Type 2 diabetes mellitus with diabetic chronic kidney disease; I12.9 Hypertensive chronic kidney disease with stage 1 through stage 4 chronic kidney disease, or unspecified chronic kidney disease; I49.5 Sick sinus syndrome; Z79.4 Long term (current) use of insulin; Z90.49 Acquired absence of other specified parts of digestive tract; Z95.0 Presence of cardiac pacemaker; Z88.8 Allergy status to other drugs, medicaments and biological substances
CPT/HCPCS: 36415; 71045; 80048; 80053; 81001; 82947; 83605; 83735; 84484; 85007; 85025; 85027; 87641; 93005; 96365; 96375; J1610; J2405; J7042; Q0163; 99285-25

== ENCOUNTER → 2019-12-09 | Outpatient (CLI) | payer MEDICARE ==
[2019-11-13 09:43] VITALS: BP 130/81
[~2019-12-09] MED LIST changes: +ASCO250T55 PO; +CINN500C2 PO; +DIPH25TA26 PO; +DIPH50CA59 PO; +HYDR-2155 PO; +INSU100I13 SQ; +METO25TA2 PO; +VALE450C2 PO
--- NOTE | 2019-12-09 12:08 | RAD ---
CHEST PA LATERAL History: Cough and fever. Weakness. Comparison: 11/11/2019 portable chest x-ray exam. Findings: Frontal and lateral views of the chest were obtained. Bilateral shoulder joint prostheses are present. Dual-lead left-sided pacemaker noted. The cardiomediastinal silhouette is normal. Pulmonary vasculature is normal. The lungs are clear. No pleural effusion or pneumothorax is seen. There is no acute bone abnormality. Multilevel disc space of the thoracic spine noted. Osteopenia noted. IMPRESSION: No acute cardiopulmonary process. Electronically signed by: Jonathan Moscoso MD (12/09/2019 12:06 PM) [facility]
== END | disposition home or self-care (01) ==
LOC: PMG 10:00
PROVIDERS: ATTEND Registered Nurse
DX: R05 Cough (principal); R50.9 Fever, unspecified; R53.1 Weakness; M85.88 Other specified disorders of bone density and structure, other site; Z95.0 Presence of cardiac pacemaker
CPT/HCPCS: 71046

== ENCOUNTER → 2019-12-14 | Outpatient (CLI) | payer MEDICARE ==
--- NOTE | 2019-12-14 15:54 | RAD ---
EXAM: Chest, 2 views; right ribs, 3 views. HISTORY: Pain. Cough. COMPARISON: 12/09/2019. FINDINGS: 2 views of the chest and 3 views of the right ribs are obtained. There is suspected bilateral basilar atelectasis. There is no consolidation, protrusion or pneumothorax. The heart is normal in size. There is a cardiac pacemaker with leads in expected position. There are bilateral shoulder arthroplasties. No displaced rib fracture is seen. IMPRESSION: No acute pulmonary or osseous finding. Electronically signed by: Carmen Pozo MD (12/14/2019 3:51 PM) [facility] [place]
--- NOTE | 2019-12-14 15:54 | RAD ---
EXAM: Chest, 2 views; right ribs, 3 views. HISTORY: Pain. Cough. COMPARISON: 12/09/2019. FINDINGS: 2 views of the chest and 3 views of the right ribs are obtained. There is suspected bilateral basilar atelectasis. There is no consolidation, protrusion or pneumothorax. The heart is normal in size. There is a cardiac pacemaker with leads in expected position. There are bilateral shoulder arthroplasties. No displaced rib fracture is seen. IMPRESSION: No acute pulmonary or osseous finding. Electronically signed by: Carmen Pozo MD (12/14/2019 3:51 PM) [facility] [place]
== END | disposition home or self-care (01) ==
LOC: PMG 14:32
PROVIDERS: ATTEND Registered Nurse
DX: J98.11 Atelectasis (principal); R07.81 Pleurodynia; Z95.1 Presence of aortocoronary bypass graft
CPT/HCPCS: 71046; 71100

== ENCOUNTER → 2019-12-14 | Outpatient (CLI) | payer MEDICARE ==
--- NOTE | 2019-12-14 16:42 | RAD ---
CT Head without contrast 12/14/2019 4:18 PM Indication: Recent fall with head trauma Comparison: None available Findings: No intracranial hemorrhage is seen. No evidence of acute territorial infarct is seen. Note that CT is limited in sensitivity for acute ischemia. Age-related atrophic changes are noted. There is patchy periventricular and deep white matter hypoattenuation which is nonspecific, but most commonly relates to chronic small vessel disease. No abnormal extra axial fluid collection is identified. No mass effect or midline shift is seen. No acute osseous abnormalities are seen. Impression: 1. No acute intracranial process identified 2. Age-related atrophy, and evidence of chronic small vessel disease as described CT DOSING PQRS STATEMENT: One or more of the following individualized dose reduction techniques were utilized for this examination: 1. Automated exposure control 2. Adjustment of the mA and/or kV according to patient size 3. Use of iterative reconstruction technique Electronically signed by: Kolton John MD (12/14/2019 4:40 PM) [facility]
== END | disposition home or self-care (01) ==
LOC: PMG 16:06
PROVIDERS: ATTEND Registered Nurse
DX: S09.90XA Unspecified injury of head, initial encounter (principal); G31.9 Degenerative disease of nervous system, unspecified; G45.8 Other transient cerebral ischemic attacks and related syndromes; X58.XXXA Exposure to other specified factors, initial encounter; Y93.89 Activity, other specified; Y92.89 Other specified places as the place of occurrence of the external cause; Y99.8 Other external cause status
CPT/HCPCS: 70450

== ENCOUNTER 2020-05-08 12:25 | Inpatient (IN) | payer MEDICARE ==
[~2020-05-08] VITALS: Ht 167.6 cm; Wt 86.0 kg
[~2020-05-08 12:25] MED LIST changes: +ASCO250T29 PO; -ASCO250T55 PO; +MELA3TAB4 PO; -MELA3TAB56 PO
--- NOTE | 2020-05-08 13:51 | RAD ---
AP chest x-ray HISTORY: Cough, chills, headaches, Covid 19. COMPARISON: Chest x-ray December 14, 2019. FINDINGS: Dual-chamber cardiac pacemaker. Heart size normal. Aortic arch calcified plaque. Focal opacity right upper lobe silhouetting the lateral minor fissure. Given the clinical history this is likely lobar pneumonia. Left lung clear. No pneumothorax. No pleural effusions. Bilateral shoulder arthroplasties. IMPRESSION: Right upper lobe opacity likely lobar pneumonia. Follow-up x-rays after treatment advised to document this resolves. Electronically signed by: Vlad Yeboah MD (05/08/2020 1:48 PM) [facility]
[2020-05-08] MEDS ORDERED: AZITHROMYCIN 500 MG in IV NORMAL SALINE 250ML 250 ML IV ONE (14:00)
[2020-05-08 14:06] LABS: BASO % 1 % (0-3); EOS % 0 % (0-3); HEMATOCRIT 37.4 % (36.0-47.0); HEMOGLOBIN 12.5 g/dL (12.0-15.5); LYMPH # 1.2 x10^3/uL (1.0-4.8); LYMPH % 12 % (24-48); MEAN CORPUSCULAR HEMOGLOBIN 31 pg (25-35); MEAN CORPUSCULAR HGB CONC 33 g/dL (31-37); MEAN CORPUSCULAR VOLUME 93 fL (79-100); MONO % 10 % (0-9); NEUT # 7.8 x10^3uL (1.8-7.7); NEUT % 78 % (31-73); PLATELET COUNT 129 x10^3/uL (140-400); RED BLOOD COUNT 4.01 x10^6/uL (3.50-5.40)
[2020-05-08 14:13] LABS: CALCIUM 8.7 mg/dL (8.5-10.1); CREATININE 1.2 mg/dL (0.6-1.0); GFR 43.8; POTASSIUM 3.6 mmol/L (3.5-5.1)
[2020-05-08 14:19] LABS: ALBUMIN 3.3 g/dL (3.4-5.0); TOTAL BILIRUBIN 0.6 mg/dL (0.2-1.0); TOTAL PROTEIN 6.7 g/dL (6.4-8.2)
[2020-05-08] MEDS ORDERED: IV NORMAL SALINE 250ML 250 ML ONE (14:27)
[2020-05-08] MEDS ORDERED: IV NORMAL SALINE 50ML 50 ML ONE (14:28)
[2020-05-08] MEDS ORDERED: AZITHROMYCIN 500 MG VIAL. IV ONE (14:28)
[2020-05-08] MEDS ORDERED: cefTRIAXone SODIUM 1 GM VIAL ONE (14:28)
--- NOTE | 2020-05-08 14:50 | PHYS DOC ---
Past History Past Medical History: A-Fib, Arthritis, Cancer, Diabetes, High Cholesterol, Hypertension Additional Past Medical Histor: NON HODGKINS LYMPHOMA REMISSION 2008, SKD 3 Past Surgical History: Appendectomy, Cholecystectomy, Hysterectomy, Knee Replacement, Tonsillectomy Additional Past Surgical Histo: artificial knees and shoulders Smoking: Non-smoker Alcohol Use: None Drug Use: None General Adult EDM: Chief Complaint: COUGH HPI: HPI: 75-year-old female presents with 3-day history of cough, congestion, and feeling poor overall. She has had some chills, but no measured fever. Patient has a history of pneumonia multiple times in the past. She has no specific COVID-19 exposures, but she has been caring for her 1-year-old grand child some days. Her is also in the emergency room for similar evaluation. The patient has fatigue and feels mildly short of breath. She denies chest pain. Review of Systems: Review of Systems: Constitutional: Chills, fatigue Eyes: Denies change in visual acuity HENT: Congestion Respiratory: Cough with shortness of breath Cardiovascular: Denies chest pain or edema GI: Denies abdominal pain, nausea, vomiting, bloody stools or diarrhea : Denies dysuria Musculoskeletal: Denies back pain or joint pain Integument: Denies rash Neurologic: Denies headache, focal weakness or sensory changes Endocrine: Denies polyuria or polydipsia Lymphatic: Denies swollen glands Psychiatric: Denies depression or anxiety Heart Score: Risk Factors: Risk Factors: DM, Current or recent (<one month) smoker, HTN, HLP, family history of CAD, obesity. Risk Scores: Score 0 - 3: 2.5% MACE over next 6 weeks - Discharge Home Score 4 - 6: 20.3% MACE over next 6 weeks - Admit for Clinical Observation Score 7 - 10: 72.7% MACE over next 6 weeks - Early Invasive Strategies Current Medications: Current Meds: Current Medications Medications (Trade) Dose Ordered Sig/Katherine Start Time Stop Time Status Last Admin Dose Admin Azithromycin (Zithromax) 500 mg STK-MED ONCE 05/08/20 14:28 05/08/20 14:28 DC Azithromycin 500 mg/Sodium Chloride 250 ml @ 250 mls/hr 1X ONCE 05/08/20 14:00 05/08/20 14:59 Ceftriaxone Sodium 1 gm/ Sodium Chloride 50 ml @ 100 mls/hr 1X ONCE 05/08/20 14:00 05/08/20 14:30 DC Ceftriaxone Sodium (Rocephin) 1 gm STK-MED ONCE 05/08/20 14:28 05/08/20 14:28 DC Sodium Chloride 50 ml @ As Directed STK-MED ONCE 05/08/20 14:28 05/08/20 14:28 DC Allergies: Allergies: Allergies Coded Allergies Type Severity Reaction Last Updated Verified levofloxacin Allergy Intermediate 04/12/16 Yes verapamil Allergy Intermediate 04/12/16 Yes I S O L A T I O N *CONTACT* Allergy Unknown 01/08/18 Yes Physical Exam: PE: Constitutional: Well developed, well nourished, no acute distress, non-toxic appearance. [] HENT: Normocephalic, atraumatic, bilateral external ears normal, oropharynx moist, no oral exudates, nose normal. [] Eyes: PERRLA, EOMI, conjunctiva normal, no discharge. [] Neck: Normal range of motion, no tenderness, supple, no stridor. [] Cardiovascular: Heart rate regular rhythm [] Lungs & Thorax: Deferred due to isolation precautions [] Abdomen:, soft, no tenderness, no masses, no pulsatile masses. [] Skin: Warm, dry, no erythema, no rash. [] Back: No tenderness, no CVA tenderness. [] Extremities: No tenderness, no cyanosis, no clubbing, ROM intact, no edema. [] Neurologic: Alert and oriented X 3, normal motor function, normal sensory function, no focal deficits noted. [] Psychologic: Affect normal, judgement normal, mood normal. [] Current Patient Data: Labs: Laboratory Tests Test 05/08/20 13:15 05/08/20 13:53 White Blood Count 10.0 x10^3/uL (4.0-11.0) Red Blood Count 4.01 x10^6/uL (3.50-5.40) Hemoglobin 12.5 g/dL (12.0-15.5) Hematocrit 37.4 % (36.0-47.0) Mean Corpuscular Volume 93 fL (79-100) Mean Corpuscular Hemoglobin 31 pg (25-35) Mean Corpuscular Hemoglobin Concent 33 g/dL (31-37) Red Cell Distribution Width 15.0 % (11.5-14.5) H Platelet Count 129 x10^3/uL (140-400) L Neutrophils (%) (Auto) 78 % (31-73) H Lymphocytes (%) (Auto) 12 % (24-48) L Monocytes (%) (Auto) 10 % (0-9) H Eosinophils (%) (Auto) 0 % (0-3) Basophils (%) (Auto) 1 % (0-3) Neutrophils # (Auto) 7.8 x10^3uL (1.8-7.7) H Lymphocytes # (Auto) 1.2 x10^3/uL (1.0-4.8) Monocytes # (Auto) 1.0 x10^3/uL (0.0-1.1) Eosinophils # (Auto) 0.0 x10^3/uL (0.0-0.7) Basophils # (Auto) 0.0 x10^3/uL (0.0-0.2) Troponin I Quantitative < 0.017 ng/mL (0-0.055) Sodium Level 138 mmol/L (136-145) Potassium Level 3.6 mmol/L (3.5-5.1) Chloride Level 103 mmol/L (98-107) Carbon Dioxide Level 26 mmol/L (21-32) Anion Gap 9 (6-14) Blood Urea Nitrogen 18 mg/dL (7-20) Creatinine 1.2 mg/dL (0.6-1.0) H Estimated GFR (Cockcroft-Gault) 43.8 BUN/Creatinine Ratio 15 (6-20) Glucose Level 52 mg/dL (70-99) L Calcium Level 8.7 mg/dL (8.5-10.1) Total Bilirubin 0.6 mg/dL (0.2-1.0) Aspartate Amino Transferase (AST) 15 U/L (15-37) Alanine Aminotransferase (ALT) 19 U/L (14-59) Alkaline Phosphatase 89 U/L (46-116) Total Protein 6.7 g/dL (6.4-8.2) Albumin 3.3 g/dL (3.4-5.0) L Albumin/Globulin Ratio 1.0 (1.0-1.7) Vital Signs: Vital Signs Date Time Temp Pulse Resp B/P (MAP) Pulse Ox O2 Delivery O2 Flow Rate FiO2 05/08/20 12:52 98.5 69 16 147/77 (100) 97 Room Air EKG: EKG: Sinus rhythm, rate 67, normal axis, no ST elevations or depressions. [] Radiology/Procedures: Radiology/Procedures: [] Impressions: AP chest x-ray HISTORY: Cough, chills, headaches, Covid 19. COMPARISON: Chest x-ray December 14, 2019. FINDINGS: Dual-chamber cardiac pacemaker. Heart size normal. Aortic arch calcified plaque. Focal opacity right upper lobe silhouetting the lateral minor fissure. Given the clinical history this is likely lobar pneumonia. Left lung clear. No pneumothorax. No pleural effusions. Bilateral shoulder arthroplasties. IMPRESSION: Right upper lobe opacity likely lobar pneumonia. Follow-up x-rays after treatment advised to document this resolves. Electronically signed by: Oanh Yeboah MD (05/08/2020 1:48 PM) [facility] – [place] DICTATED AND SIGNED BY: OANH YEBOAH MD DATE: 05/08/20 1343 CC: ANTONY YEAGER DO; [facility] ~ Course & Med Decision Making: Course & Med Decision Making Pertinent Labs and Imaging studies reviewed. (See chart for details) The patient's chest x-ray is significant for right upper lobe pneumonia. We have drawn blood cultures and lactic acid. I will treat her with a gram of Rocephin and 500 mg of azithromycin both IV. Her labs are unremarkable. Her urinalysis is negative for infection. We will admit the patient to the hospital for pneumonia. I spoke with Dr. Kohli and he has accepted the patient for admission. The patient is in agreement with this plan. Her COVID-19 results will not be available until sometime tomorrow. She will go to a COVID-19 room pending that result. [] Dragon Disclaimer: Dragon Disclaimer: This electronic medical record was generated, in whole or in part, using a voice recognition dictation system. Departure Departure: Impression: Primary Impression: Right upper lobe pneumonia Qualified Codes: J18.9 - Pneumonia, unspecified organism Disposition: ADMITTED INPATIENT Admitting Physician: Marah Kohli Condition: STABLE Referrals: [facility] (PCP) Justification of Admission: Justification of Admission: Justification of Admission Dx: Yes Comminuty Aquired Pneumonia: Respiratory Findings ANTONY YEAGER DO May 08, 2020 14:49
[2020-05-08] MEDS ORDERED: ACETAMINOPHEN 325 MG TABLET PO PRN (15:00)
[2020-05-08] MEDS ORDERED: ONDANSETRON PF 4 MG/2 ML VIAL. IVP PRN (15:00)
--- NOTE | 2020-05-08 15:45 | NUR ---
Patient arrived to unit via EMS. Patient is stable at time of admission. VS obtained. Patient is oriented to room and procedures. Patient is offered drink, meal tray ordered for dinner. Patient is resting in bed at this time. Dr. Kohli notified of admission. Will continue to monitor.
[2020-05-08 16:49] VITALS: BP 154/70
[2020-05-08] MEDS ORDERED: DOXY25TA16 PO (16:58)
--- NOTE | 2020-05-08 18:11 | HP ---
ADMIT DATE: 05/08/2020 HISTORY OF PRESENT ILLNESS: The patient is a 75-year-old female patient who came to the Emergency Room with a complaint of a 3-day history of cough, congestion, feeling poor overall. She has had some chills, but no measured fever. She does have a history of pneumonia multiple times in the past. She has no specific COVID-19 exposure, but she has been caring for her 1-year-old grandchild some days. Her is also in the Emergency Room for similar evaluation. She did complain of fatigue and feels mildly short of breath. Denies any chest pain. She was investigated and her lab work showed that she has mild thrombocytopenia. Her chemistry was mostly unremarkable except her blood sugar was in the lower side. Her chest x-ray showed that she has right upper lobe pneumonia; therefore, the patient was admitted with community-acquired pneumonia, started on IV Zithromax and Rocephin and she also was swabbed for COVID-19 together with her . PAST MEDICAL HISTORY: Significant for type 2 diabetes mellitus, hypertension, chronic kidney disease, sick sinus syndrome, atrial fibrillation, osteoarthritis and gout. She was diagnosed with non-Hodgkin's lymphoma in 2006. Apparently, she has been in remission since 2007. PAST SURGICAL HISTORY: Significant for bilateral total shoulder replacement, bilateral total knee arthroplasty, permanent pacemaker placement, tonsillectomy, appendectomy, and cholecystectomy. ALLERGIES: SHE IS ALLERGIC TO LEVOFLOXACIN AND VERAPAMIL. FAMILY HISTORY: She has one brother, younger and has similar medical problems. She does not know her father as he when she was very young. Her mother at the age of 72 because of the complication of end-stage renal disease, on stopped hemodialysis. SOCIAL HISTORY: She is , has 1 son alive and 1 son at the age of 43 because of myocardial infarction and complication of diabetes. She is a nonsmoker, does not drink alcohol. 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 She is retired since she was diagnosed with non-Hodgkin lymphoma. REVIEW OF SYSTEMS: The patient denied any blurring of vision, cataract, glaucoma or macular degeneration. Denied any earache, tinnitus or sensorineural deafness. Denied any nosebleeds, stuffy nose or postnasal drip. Denied any sore throat, sore tongue, toothache, hoarseness of voice or difficulty swallowing. Did complain of generalized weakness, chills and fever. MEDICATIONS: She is currently on following medications: She is on diphenhydramine 25 mg at bedtime, doxylamine for Unisom Sleep aid 50 mg daily, simvastatin 20 mg at bedtime, hydralazine 50 mg twice a day, metoprolol succinate 25 mg once a day, amlodipine 10 mg once a day, lisinopril 20 mg twice a day, gabapentin 100 mg twice a day, Colace 100 mg twice a day, Lantus insulin 10 units at bedtime, cyanocobalamin 5000 mcg tablet once a day, ascorbic acid 500 mg twice a day, cholecalciferol 2000 units daily, fish oil 1 capsule twice a day, allopurinol 100 mg once a day, valerian root ____ p.o. b.i.d. PHYSICAL EXAMINATION: GENERAL: On arrival to the Emergency Room, she looked well and was clearly in no apparent respiratory distress. There is no pallor, jaundice, cyanosis or thyromegaly. No jugular venous distention. No limb edema. VITAL SIGNS: Her heart rate was 69, blood pressure was 147/77, temperature was 98.5, respiratory rate was 16, and oxygen saturation was 97% on room air. HEAD, EYES, EARS, NOSE AND THROAT: Showed normocephalic and atraumatic. NECK: Supple. HEART: Showed normal first and second heart sounds. No gallop, rub or murmur. CHEST: Showed central trachea, equal bilateral expansion air entry, vesicular breath sounds. I could not really appreciate any crepitation or rhonchi. ABDOMEN: Distended, soft, nontender. NEUROLOGIC: She is grossly intact. LABORATORY DATA: On admission showed a white cell count of 10,000; hemoglobin 12.5; hematocrit 37; MCV 93; and platelet count of 129,000 with normal manual differential. Her chemistry showed a serum sodium 138, potassium 3.6, chloride 103, bicarbonate 26, anion gap of 9, BUN 18, creatinine 1.2, estimated GFR was 43 mL per minute. Her glucose was 52. Her lactic acid was only 1.3, calcium was 8.7. Total bilirubin, AST, ALT, alkaline phosphatase were normal. Total protein 6.7, albumin 3.3. Chest x-ray showed she has right upper lobe pneumonia. ASSESSMENT AND PLAN: The patient was admitted with community-acquired pneumonia. She was given Zithromax and ceftriaxone. I would reconcile all her medication and continue with IV antibiotic. I will repeat all her labs tomorrow and we have also swabbed her for COVID-19 and based on the result, will decide on further management. LAYO PAULSON MD DR: SALTY/pamela JOB#: [id number] / [id number]
[2020-05-08] MEDS: LACTOBACILLUS RHAMNOSUS GG 1 CAPSULE. PO SCH (20:25)
[2020-05-08] MEDS: DOCUSATE SODIUM 100 MG CAPSULE PO SCH (20:25)
[2020-05-08] MEDS: SIMVASTATIN 20 MG TABLET PO SCH (20:26)
[2020-05-08] MEDS: diphenhydrAMINE HCL 25 MG CAPSULE PO SCH (20:27)
[2020-05-08] MEDS: ASCORBIC ACID 500 MG TABLET PO SCH (20:27)
[2020-05-08] MEDS: GABAPENTIN 100 MG CAPSULE. PO SCH (20:27)
[2020-05-08] MEDS: OMEGA-3 FATTY ACIDS/FISH OIL 1,000 MG CAPSULE. PO SCH (20:27)
[2020-05-08] MEDS: ACETAMINOPHEN 325 MG TABLET PO PRN (20:27)
[2020-05-08] MEDS: LISINOPRIL 20 MG TABLET PO SCH (20:28)
[2020-05-08] MEDS: INSULIN GLARGINE SYRINGE. SQ SCH (20:36)
[2020-05-08 20:59] VITALS: BP 154/78
[2020-05-08] MEDS: DOXYLAMINE SUCCINATE 25 MG TABLET PO SCH (21:00)
[2020-05-08] MEDS ORDERED: VALERIAN ROOT PO SCH (21:00)
--- NOTE | 2020-05-08 21:42 | NUR ---
Pt has dry cough, denies sputum or pain. Lungs sounds clear, dim. Pt c/o feeling very cold and wants more blankets. Pt skin is pink where it has been touching the bed and she feels very warm to touch. Pt temperature orally 103.4. Tylenol administered with night meds. Pt declines other fluids besides water, jello, food of any kind. Will continue to monitor.
--- NOTE | 2020-05-08 22:05 | NUR ---
Pt temperature is 101.7. Her skin is less pink and her affect seems less uncomfortable. Ice chips and spoon given. Fluids encouraged. Pt called for help from the toilet because she felt "too weak to make it back to bed." Toilet riser placed to assist in rising from toilet, socks and shoes replaced with slipper socks. Pt wearing brief due to urge incontinence. Will continue to monitor.
[2020-05-08 23:30] VITALS: BP 133/62
[2020-05-09] MEDS: ACETAMINOPHEN 325 MG TABLET PO PRN ×3 (00:30→20:55)
--- NOTE | 2020-05-09 00:55 | NUR ---
Telemetry showed ventricular tachycardia on the monitor. By the time this nurse got into the pt room, according to other nurse, pt had returned to sinus rhythm. Upon entering pt room, found pt lying on left side, resting soundly, having taken nasal cannula off in her sleep. Pt denies pain, discomfort, fluttering, etc and seemed disoriented. Will continue to monitor.
[2020-05-09 05:42] VITALS: BP 134/56
[2020-05-09 06:14] LABS: HEMATOCRIT 34.7 % (36.0-47.0); HEMOGLOBIN 11.5 g/dL (12.0-15.5); RED BLOOD COUNT 3.74 x10^6/uL (3.50-5.40); WHITE BLOOD COUNT 8.1 x10^3/uL (4.0-11.0)
[2020-05-09 06:31] LABS: ALBUMIN 2.8 g/dL (3.4-5.0); ALBUMIN/GLOBULIN RATIO 0.8 (1.0-1.7); CALCIUM 8.5 mg/dL (8.5-10.1); CREATININE 1.2 mg/dL (0.6-1.0); GFR 43.8; POTASSIUM 3.9 mmol/L (3.5-5.1); TOTAL BILIRUBIN 0.5 mg/dL (0.2-1.0); TOTAL PROTEIN 6.1 g/dL (6.4-8.2)
--- NOTE | 2020-05-09 06:31 | NUR ---
Pt slept soundly most of the night. She states she feels better than last night. Pt has a returned appetite. She ate a vanilla pudding cup and drank some lemon-little river soda on ice. Will continue to monitor. Addendum: 05/09/20 at 0637 by TYLER SUH RN No subsequent runs of ventricular tachycardia through the night. Pt also has not pulled off her nasal cannula again since the first episode.
--- NOTE | 2020-05-09 07:00 | EKG ---
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
[2020-05-09] MEDS: CYANOCOBALAMIN (VITAMIN B-12) 1,000 MCG TABLET. PO SCH (08:04)
[2020-05-09] MEDS: OMEGA-3 FATTY ACIDS/FISH OIL 1,000 MG CAPSULE. PO SCH ×2 (08:04→20:49)
[2020-05-09] MEDS: GABAPENTIN 100 MG CAPSULE. PO SCH ×2 (08:04→20:49)
[2020-05-09] MEDS: AZITHROMYCIN 250 MG TABLET. PO SCH (08:04)
[2020-05-09] MEDS: METOPROLOL SUCC 24HR ER 25 MG TAB.ER.24H. PO SCH (08:05)
[2020-05-09] MEDS: CHOLECALCIFEROL (VITAMIN D3) 1,000 UNIT TABLET PO SCH (08:05)
[2020-05-09] MEDS: amLODIPine BESYLATE 10 MG TABLET PO SCH (08:06)
[2020-05-09] MEDS: ASCORBIC ACID 500 MG TABLET PO SCH ×2 (08:06→20:49)
[2020-05-09] MEDS: ALLOPURINOL 100 MG TABLET. PO SCH (08:06)
[2020-05-09] MEDS: LACTOBACILLUS RHAMNOSUS GG 1 CAPSULE. PO SCH ×2 (08:06→20:49)
[2020-05-09] MEDS: LISINOPRIL 20 MG TABLET PO SCH ×2 (08:06→20:50)
[2020-05-09] MEDS: DOCUSATE SODIUM 100 MG CAPSULE PO SCH ×3 (08:10→20:48)
[2020-05-09 12:28] VITALS: BP 138/56
[2020-05-09 19:44] VITALS: BP 140/50
--- NOTE | 2020-05-09 20:20 | PN ---
DATE: 05/09/2020 SUBJECTIVE: The patient is resting, slightly propped up in bed, in no apparent distress. She apparently has a cough, which is mostly dry. She did spike a temperature last night up to 103.4. Blood cultures were sent, but are so far negative. OBJECTIVE: GENERAL: When I examined her this afternoon, she looked well and was clearly in no apparent respiratory distress, slightly pale, no jaundice, cyanosis or thyromegaly. No jugular venous distention. No limb edema. VITAL SIGNS: Her heart rate was 67, blood pressure was 138/56, temperature was 95.7, respiratory rate 22, and oxygen saturation was 96% on 1 liter of oxygen. HEAD, EYES, EARS, NOSE AND THROAT: Showed normocephalic, atraumatic. NECK: Supple. HEART: Showed normal first and second heart sounds. No gallop or murmur. CHEST: Clear to auscultation. No crepitation or rhonchi. ABDOMEN: Distended, soft. NEUROLOGIC: She is awake, alert, responding appropriately. All her cranial nerves intact. She moves extremities without difficulty. Her intake was 415, output was recorded. LABORATORY DATA: Her lab work this morning showed a white cell count of 8100, hemoglobin 11.5, hematocrit 34.7, MCV 93, and platelet count of 117,000. Her chemistry showed a serum sodium 140, potassium 3.9, chloride 107, bicarbonate 24, anion gap of 9, BUN 18, creatinine 1.2, estimated GFR was 44 mL per minute. Her glucose 152, calcium was 8.5. Total bilirubin, AST, ALT, alkaline phosphatase were normal. Total protein was 6.1, albumin was 2.8. Her nasal screen for MRSA by PCR was negative; however, her COVID-19 by PCR is still pending at the time of this dictation. ASSESSMENT: 1. Community-acquired pneumonia. 2. Other medical problems include type 2 diabetes mellitus, seems to be reasonably controlled, hypertension, chronic kidney disease, sick sinus syndrome and atrial fibrillation, osteoarthritis and gout. She apparently has been diagnosed non-Hodgkin's lymphoma in 2006 and she is in remission since 2007. PLAN: To continue with IV antibiotic. Continue with all her other medications. Once the COVID status becomes available and negative, then we can transfer her to the other side. LAYO PAULSON MD DR: Lauren JOB#: [id number] / [id number]
[2020-05-09] MEDS: diphenhydrAMINE HCL 25 MG CAPSULE PO SCH (20:48)
[2020-05-09] MEDS: SIMVASTATIN 20 MG TABLET PO SCH (20:50)
[2020-05-09] MEDS: DOXYLAMINE SUCCINATE 25 MG TABLET PO SCH (20:50)
[2020-05-09] MEDS: INSULIN GLARGINE SYRINGE. SQ SCH (20:55)
[2020-05-09 22:50] VITALS: BP 166/76
[2020-05-10 06:26] VITALS: BP 161/65
[2020-05-10 06:49] LABS: ALBUMIN 2.8 g/dL (3.4-5.0); ALBUMIN/GLOBULIN RATIO 0.8 (1.0-1.7); CALCIUM 8.8 mg/dL (8.5-10.1); CREATININE 1.2 mg/dL (0.6-1.0); GFR 43.8; TOTAL BILIRUBIN 0.3 mg/dL (0.2-1.0); TOTAL PROTEIN 6.3 g/dL (6.4-8.2)
[2020-05-10] MEDS: OMEGA-3 FATTY ACIDS/FISH OIL 1,000 MG CAPSULE. PO SCH ×2 (08:52→20:29)
[2020-05-10] MEDS: GABAPENTIN 100 MG CAPSULE. PO SCH ×2 (08:52→20:29)
[2020-05-10] MEDS: CYANOCOBALAMIN (VITAMIN B-12) 1,000 MCG TABLET. PO SCH ×2 (08:53→09:00)
[2020-05-10] MEDS: amLODIPine BESYLATE 10 MG TABLET PO SCH (08:53)
[2020-05-10] MEDS: METOPROLOL SUCC 24HR ER 25 MG TAB.ER.24H. PO SCH (08:53)
[2020-05-10] MEDS: LACTOBACILLUS RHAMNOSUS GG 1 CAPSULE. PO SCH ×2 (08:53→20:29)
[2020-05-10] MEDS: ASCORBIC ACID 500 MG TABLET PO SCH ×2 (08:55→20:29)
[2020-05-10] MEDS: DOCUSATE SODIUM 100 MG CAPSULE PO SCH ×3 (08:55→20:29)
[2020-05-10] MEDS: CHOLECALCIFEROL (VITAMIN D3) 1,000 UNIT TABLET PO SCH (08:55)
[2020-05-10] MEDS: LISINOPRIL 20 MG TABLET PO SCH ×2 (08:56→20:30)
[2020-05-10] MEDS: ALLOPURINOL 100 MG TABLET. PO SCH (08:57)
[2020-05-10] MEDS: AZITHROMYCIN 250 MG TABLET. PO SCH (08:58)
[2020-05-10] MEDS: ACETAMINOPHEN 325 MG TABLET PO PRN (09:00)
[2020-05-10 09:23] LABS: HEMATOCRIT 35.8 % (36.0-47.0); HEMOGLOBIN 11.8 g/dL (12.0-15.5); RED BLOOD COUNT 3.84 x10^6/uL (3.50-5.40); RED CELL DISTRIBUTION WIDTH 14.9 % (11.5-14.5); WHITE BLOOD COUNT 5.9 x10^3/uL (4.0-11.0)
[2020-05-10 11:41] VITALS: BP 138/69
[2020-05-10 14:36] VITALS: BP 132/51
--- NOTE | 2020-05-10 14:52 | NUR ---
NSG NOTE; DR HAYNES CONSULT CALLED TO JAYCE ROBINS AT 1445. PT'S METOPROLOL CHANGED PER HER ORDER. JAYCE STATES DR HARPER SHOULD BE HERE TODAY TO SEE PT
--- NOTE | 2020-05-10 15:35 | NUR ---
NSG NOTE; COVID NEGATIVE TEST RESULTS RECEIVED THIS AM. PT MOVED OUT OF ISOLATION TO MED/TELEMETRY FLOOR, RM 107. AWARE OF RESULTS AND VISITED PT TODAY
--- NOTE | 2020-05-10 16:42 | PN ---
DATE: 05/10/2020 SUBJECTIVE: The patient is sitting at the edge of the bed, in no apparent distress. She continued to complain of right-sided headache due to impacted cerumen. She has also had multiple episodes of nonsustained ventricular tachycardia. She has a pacemaker. She is on metoprolol succinate 25 mg once a day; however, she continued to have these episodes and telemetry showed these episodes multiple times during which she apparently is asymptomatic. PHYSICAL EXAMINATION: GENERAL: When I saw her this afternoon, she was sitting on the edge of the bed comfortably in no apparent respiratory distress. She was pale, but no jaundice, cyanosis or thyromegaly. No jugular venous distention or limb edema. VITAL SIGNS: Her heart rate was 76, blood pressure was 132/51, temperature was 98.5, respiratory rate was 22 and oxygen saturation was 97% on room air. HEAD, EYES, EARS, NOSE AND THROAT: Showed normocephalic and atraumatic. NECK: Supple. HEART: Showed normal first and second heart sounds with no gallop, rub or murmur. CHEST: Clear to auscultation. Chest has showed central trachea, equal bilateral expansion, air entry, vesicular breath sounds. I could not really appreciate any crepitation or rhonchi. ABDOMEN: Slightly distended, soft, nontender. NEUROLOGIC: She was awake, alert, responding appropriately. All cranial nerves intact. She moves extremities without difficulty. She ambulates without assistance or assistive devices. Examination of both ears showed impacted cerumen mostly on the right than left. LABORATORY DATA: Showed that the patient's white cell count was down to 5900, hemoglobin 11.8, hematocrit 35.8, MCV 93, and platelet count of 129,000. Her chemistry showed a serum sodium 140, potassium 4, chloride 106, bicarbonate 24, anion gap of 10, BUN 20, creatinine 1.2, estimated GFR was 44 mL per minute. Her glucose 162, calcium was 8.8. Total bilirubin, AST, ALT, alkaline phosphatase were normal. Total protein 6.3, albumin was 2.8. Her COVID test was negative and her nasal screen for MRSA by PCR was negative. Her blood cultures showed no growth after one day. ASSESSMENT: 1. Community-acquired pneumonia for which she continues to be on Zithromax and Rocephin. 2. Impacted cerumen for which I started her on Debrox 5% otic solution 5 drops to both ears twice a day for 5 days. 3. Episodes of nonsustained ventricular tachycardia. 4. Type 2 diabetes mellitus. 5. Hypertension. 6. Chronic kidney disease. 7. Atrial fibrillation. 8. Osteoarthritis and gout. We have consulted the Cardiology team for evaluation and treatment of this nonsustained ventricular tachycardia. LAYO PAULSON MD DR: SALTY/pamela JOB#: [id number] / [id number]
[2020-05-10 20:16] VITALS: BP 157/87
[2020-05-10] MEDS: CARBAMIDE PEROXIDE 6.5% OTIC SOLUTION 15ML BOTTLE. AU SCH (20:29)
[2020-05-10] MEDS: SIMVASTATIN 20 MG TABLET PO SCH (20:30)
[2020-05-10] MEDS: INSULIN GLARGINE SYRINGE. SQ SCH (20:33)
[2020-05-10] MEDS: diphenhydrAMINE HCL 25 MG CAPSULE PO SCH (20:51)
[2020-05-10] MEDS: DOXYLAMINE SUCCINATE 25 MG TABLET PO SCH (20:52)
[2020-05-10] MEDS ORDERED: METOPROLOL TART IMMED RELEASE 25 MG TABLET PO SCH (21:00)
[2020-05-10 23:16] VITALS: BP 147/79
[2020-05-11 06:14] LABS: CREATININE 1.2 mg/dL (0.6-1.0); GFR 43.8; MAGNESIUM 2.2 mg/dL (1.8-2.4)
[2020-05-11 06:37] VITALS: BP 147/72
--- NOTE | 2020-05-11 08:52 | PDOC2 ---
CARDIAC CONSULT DATE OF CONSULT Date Of Consult DATE: 05/11/20 TIME: 08:37 REASON FOR CONSULT Reason for Consult NSVT REFERRING PHYSICIAN Referring Physician Dr. Kohli SOURCE Source: Chart review, Patient HPI History of Present Illness This is 75 yo female who presented secondary to cough and congestion. Was noted with some arrhythmias on telemetry, which prompted this consult. She denies any chest pain, palpitations, dizziness, diaphoresis, or nausea/vomiting. Cough persists. Is non-productive. Has a history of PAFIB. Was previously on Eliquis for stroke prophylaxis. She reports multiple falls in the last month. Most recent was last week. Reports she lost her balance and fell. Denies any precipitating dizziness/lightheadedness. No LOC with falls. 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, CKD stage 3 PAST SURGICAL HISTORY Past Surgical History right total knee, tonsillectomy, cholecystectomy, tubal ligation, left total knee, bilateral shoulder replacement, hernia repair, left superficial parotide ctomy with facial nerve dissection, PPM FAMILY HISTORY Family History: Heart Disease SOCIAL HISTORY Social History non smoker, no significant ETOH, no illicit drugs CURRENT MEDICATIONS Current Medications Current Medications Ceftriaxone Sodium 1 gm/ Sodium Chloride 50 ml @ 100 mls/hr 1X ONCE IV Last administered on 05/08/20at 16:31; Start 05/08/20 at 14:00; Stop 05/08/20 at 14:30; Status DC Azithromycin 500 mg/Sodium Chloride 250 ml @ 250 mls/hr 1X ONCE IV Last administered on 05/08/20at 14:00; Start 05/08/20 at 14:00; Stop 05/08/20 at 14:59; Status DC Sodium Chloride 250 ml @ As Directed STK-MED ONCE .ROUTE ; Start 05/08/20 at 14:27; Stop 05/08/20 at 14:28; Status DC Sodium Chloride 50 ml @ As Directed STK-MED ONCE .ROUTE ; Start 05/08/20 at 14:28; Stop 05/08/20 at 14:28; Status DC Azithromycin (Zithromax) 500 mg STK-MED ONCE IV ; Start 05/08/20 at 14:28; Stop 05/08/20 at 14:28; Status DC Ceftriaxone Sodium (Rocephin) 1 gm STK-MED ONCE .ROUTE ; Start 05/08/20 at 14:28; Stop 05/08/20 at 14:28; Status DC Ondansetron HCl (Zofran) 4 mg PRN Q4HRS PRN IVP NAUSEA/VOMITING; Start 05/08/20 at 15:00; Stop 05/09/20 at 14:59; Status DC Acetaminophen (Tylenol) 650 mg PRN Q4HRS PRN PO FEVER > 100.3'F; Start 05/08/20 at 15:00; Stop 05/08/20 at 17:33; Status DC Allopurinol (Zyloprim) 100 mg DAILY PO Last administered on 05/10/20at 08:57; Start 05/09/20 at 09:00 Amlodipine Besylate (Norvasc) 10 mg DAILY PO Last administered on 05/10/20 08:53; Start 05/09/20 at 09:00 Docusate Sodium (Colace) 100 mg TID PO Last administered on 05/10/20at 20:29; Start 05/08/20 at 21:00 Doxylamine Succinate (Unisom) 50 mg HS PO ; Start 05/08/20 at 21:00 Gabapentin (Neurontin) 100 mg BID PO Last administered on 05/10/20at 20:29; Start 05/08/20 at 21:00 Hydralazine HCl (Apresoline) 50 mg BID PO Last administered on 05/10/20at 20:31; Start 05/08/20 at 21:00 Lisinopril (Prinivil) 20 mg BID PO Last administered on 05/10/20at 20:30; Start 05/08/20 at 21:00 Metoprolol Succinate (Toprol Xl) 25 mg DAILY PO Last administered on 05/10/20 08:53; Start 05/09/20 at 09:00; Stop 05/10/20 at 14:51; Status DC Simvastatin (Zocor) 20 mg HS PO Last administered on 05/10/20at 20:30; Start 05/08/20 at 21:00 Ascorbic Acid (Vitamin C) 500 mg BID PO Last administered on 05/10/20at 20:29; Start 05/08/20 at 21:00 Vitamin D (Vitamin D3) 2,000 unit DAILY PO Last administered on 05/10/20 08:55; Start 05/09/20 at 09:00 Cyanocobalamin (Vitamin B-12) 5,000 mcg DAILY PO Last administered on 05/09/20 08:04; Start 05/09/20 at 09:00; Stop 05/10/20 at 18:57; Status DC Diphenhydramine HCl (Benadryl) 25 mg QHS PO Last administered on 05/10/20 20:51; Start 05/08/20 at 21:00 Fish Oil (Fish Oil) 1,000 mg BID PO Last administered on 05/10/20 20:29; Start 05/08/20 at 21:00 Insulin Glargine (Lantus Syringe) 10 unit QHS SQ Last administered on 05/10/20 20:33; Start 05/08/20 at 21:00 Non-Formulary Medication (Valerian Root (Valerian)) 1 mg BID PO ; Start 05/08/20 at 21:00; Status UNV Ceftriaxone Sodium 1 gm/ Sodium Chloride 50 ml @ 100 mls/hr Q24H IV Last administered on 05/10/20 17:34; Start 05/09/20 at 17:30 Azithromycin (Zithromax) 250 mg DAILY PO Last administered on 05/10/20 08:58; Start 05/09/20 at 09:00 Acetaminophen (Tylenol) 650 mg PRN Q4HRS PRN PO PAIN Last administered on 05/10/20 09:00; Start 05/08/20 at 17:30 Lactobacillus Rhamnosus (Culturelle) 1 cap BID PO Last administered on 05/10/20 20:29; Start 05/08/20 at 21:00 Carbamide Peroxide (Debrox) 5 drop BID AU Last administered on 05/10/20 20:29; Start 05/10/20 at 21:00 Metoprolol Tartrate (Lopressor) 25 mg BID PO Last administered on 05/10/20 20:31; Start 05/10/20 at 21:00 Active Scripts Active Lantus Solostar (Insulin Glargine,Hum.rec.anlog) 100 Unit/1 Ml Insuln.pen 10 Unit SQ QHS 30 Days Hydralazine Hcl 50 Mg Tablet 1 Tab PO BID Reported Unisom Sleep Aid (Doxylamine Succinate) 25 Mg Tablet 50 Mg PO DAILY Diphenhydramine Hcl 25 Mg Tablet 1 Tab PO QHS Valerian (Valerian Root) 450 Mg Capsule 1 Mg PO BID Vitamin C 250 mg Tablet Chew (Ascorbic Acid/Ascorbate Sodium) 250 Mg Tab.chew 500 Mg PO BID Toprol Xl (Metoprolol Succinate) 25 Mg Tab.er.24h 1 Tab PO DAILY Simvastatin 20 Mg Tablet 20 Mg PO HS LAST DOSE GIVEN: DATE: TIME: NEXT DOSE DUE: DATE: TIME: Amlodipine Besylate 10 Mg Tablet 10 Mg PO DAILY LAST DOSE GIVEN: DATE: TIME: NEXT DOSE DUE: DATE: TIME: Colace (Docusate Sodium) 100 Mg Capsule 1 Cap PO TID LAST DOSE GIVEN: DATE: TIME: NEXT DOSE DUE: DATE: TIME: Fish Oil 1,200 Mg Fish Oil (Fish Oil/Dha/Epa) 1 Each Capsule 1 Cap PO BID LAST DOSE GIVEN: DATE: TIME: NEXT DOSE DUE: DATE: TIME: Vitamin D (Cholecalciferol (Vitamin D3)) 2,000 Unit Capsule 2,000 Unit PO HS LAST DOSE GIVEN: DATE: TIME: NEXT DOSE DUE: DATE: TIME: Gabapentin (Gabapentin) 100 Mg Capsule 100 Mg PO BID LAST DOSE GIVEN: DATE: TIME: NEXT DOSE DUE: DATE: TIME: Allopurinol 100 Mg Tablet 100 Mg PO DAILY LAST DOSE GIVEN: DATE: TIME: NEXT DOSE DUE: DATE: TIME: Lisinopril 20 Mg Tablet 20 Mg PO BID LAST DOSE GIVEN: DATE: TIME: NEXT DOSE DUE: DATE: TIME: ALLERGIES Allergies: Coded Allergies: levofloxacin (Verified Allergy, Intermediate, 04/12/16) verapamil (Verified Allergy, Intermediate, 04/12/16) I S O L A T I O N *CONTACT* (Verified Allergy, Unknown, 01/08/18) +MRSA screen 01/06/18 ROS Review of Systems 14 point ROS conducted with pertinent positives noted above in HPI PHYSICAL EXAM General: Alert, Oriented X3, Cooperative, No acute distress HEENT: Atraumatic, Mucous membr. moist/pink Lungs: Clear to auscultation Heart: Regular rate, Normal S1, Normal S2 Abdomen: Normal bowel sounds, No tenderness Extremities: No edema, Normal pulses Skin: No rashes, No breakdown Neuro: Normal speech, Sensation intact Psych/Mental Status: Mental status NL, Mood NL MUSCULOSKELETAL: Osteoarthritic changes both hands VITALS Vital Signs Vital Signs Date Time Temp Pulse Resp B/P (MAP) Pulse Ox O2 Delivery O2 Flow Rate FiO2 05/11/20 06:37 98.5 85 20 147/72 (97) 95 Room Air 05/09/20 20:03 1.0 LABS LABS Laboratory Tests Test 05/09/20 11:33 05/09/20 20:45 05/10/20 06:05 05/10/20 08:04 Glucose (Fingerstick) 179 mg/dL (70-99) 225 mg/dL (70-99) 154 mg/dL (70-99) Sodium Level 140 mmol/L (136-145) Potassium Level 4.0 mmol/L (3.5-5.1) Chloride Level 106 mmol/L (98-107) Carbon Dioxide Level 24 mmol/L (21-32) Anion Gap 10 (6-14) Blood Urea Nitrogen 20 mg/dL (7-20) Creatinine 1.2 mg/dL (0.6-1.0) Estimated GFR (Cockcroft-Gault) 43.8 BUN/Creatinine Ratio 17 (6-20) Glucose Level 162 mg/dL (70-99) Calcium Level 8.8 mg/dL (8.5-10.1) Total Bilirubin 0.3 mg/dL (0.2-1.0) Aspartate Amino Transf (AST/SGOT) 11 U/L (15-37) Alanine Aminotransferase (ALT/SGPT) 17 U/L (14-59) Alkaline Phosphatase 80 U/L (46-116) Total Protein 6.3 g/dL (6.4-8.2) Albumin 2.8 g/dL (3.4-5.0) Albumin/Globulin Ratio 0.8 (1.0-1.7) Test 05/10/20 09:05 05/10/20 11:31 05/10/20 20:24 05/11/20 05:45 White Blood Count 5.9 x10^3/uL (4.0-11.0) Red Blood Count 3.84 x10^6/uL (3.50-5.40) Hemoglobin 11.8 g/dL (12.0-15.5) Hematocrit 35.8 % (36.0-47.0) Mean Corpuscular Volume 93 fL (79-100) Mean Corpuscular Hemoglobin 31 pg (25-35) Mean Corpuscular Hemoglobin Concent 33 g/dL (31-37) Red Cell Distribution Width 14.9 % (11.5-14.5) Platelet Count 129 x10^3/uL (140-400) Glucose (Fingerstick) 164 mg/dL (70-99) 206 mg/dL (70-99) Sodium Level 139 mmol/L (136-145) Potassium Level 4.0 mmol/L (3.5-5.1) Chloride Level 105 mmol/L (98-107) Carbon Dioxide Level 24 mmol/L (21-32) Anion Gap 10 (6-14) Blood Urea Nitrogen 20 mg/dL (7-20) Creatinine 1.2 mg/dL (0.6-1.0) Estimated GFR (Cockcroft-Gault) 43.8 Glucose Level 165 mg/dL (70-99) Calcium Level 9.0 mg/dL (8.5-10.1) Magnesium Level 2.2 mg/dL (1.8-2.4) ECHOCARDIOGRAM Echocardiogram <Conclusion> The left ventricle is normal size. The left ventricular systolic function is normal and the ejection fraction is within normal range. The Ejection Fraction is 50-55%. The left atrium is mildly dilated. There is no significant aortic valvular stenosis. Doppler and Color Flow revealed trace aortic regurgitation. Doppler and Color-flow revealed trace mitral regurgitation. Doppler and Color Flow revealed mild to moderate tricuspid regurgitation. DATE: 01/07/18 1605 <Conclusion> Limited study. The left ventricle is normal size. The left ventricular systolic function is normal and the ejection fraction is within normal range. The Ejection Fraction is 55-60%. There is normal LV segmental wall motion. There is a trace pericardial effusion with no hemodynamic significance. DATE: 08/21/19 1004 HEART CATH Heart Cath Cardiac cath 06/27/16 LM - no significant disease LAD - no significant disease LCX - no significant disease Left PDA - small, diffuse calcification without stenosis RI - small, diffuse calcification without stenosis RCA - large, diffuse calcification without stenosis Right PDA - no significant disease EF 35%, EDP 28 mmHg ASSESSMENT/PLAN Assessment/Plan 1. CAP; antibiotic therapy as per IM. COVID negative 2. NSVT; few bursts noted on tele yesterday. Mg WNL. 3. PAFIB; presently SR. Few brief burst of PAFIB noted on tele. Otherwise, maintaining SR. 4. H/o NICM; LVEF previously 35%. Most recent echo 09/05 with LV recovery with EF 55-60%. Clinically compensated. 4. SSS s/p PPM. Remote device check earlier this month 5. Hypertension; contolled 6. Hyperlipidemia; statin 7. Diabetes, II 8. CKD; stable Recommendations TSH Metoprolol increased for better HR control, suppression. Will convert to long- acting Continue ASA therapy. Probable poor candidate for long-term OAC given recurrent falls Will obtain recent remote device check to note presence of tachyarrhythmias, AFIB burden. Follow up in our office with Dr. Daniel June 01 as scheduled Supportive care JAYCE QUEVEDO APRN May 11, 2020 08:52
[2020-05-11] MEDS: CARBAMIDE PEROXIDE 6.5% OTIC SOLUTION 15ML BOTTLE. AU SCH (09:00)
[2020-05-11] MEDS: DOCUSATE SODIUM 100 MG CAPSULE PO SCH (09:13)
[2020-05-11] MEDS: ASCORBIC ACID 500 MG TABLET PO SCH (09:13)
[2020-05-11] MEDS: LACTOBACILLUS RHAMNOSUS GG 1 CAPSULE. PO SCH (09:13)
[2020-05-11] MEDS: AZITHROMYCIN 250 MG TABLET. PO SCH (09:13)
[2020-05-11] MEDS: CHOLECALCIFEROL (VITAMIN D3) 1,000 UNIT TABLET PO SCH (09:13)
[2020-05-11] MEDS: ALLOPURINOL 100 MG TABLET. PO SCH (09:13)
[2020-05-11] MEDS: OMEGA-3 FATTY ACIDS/FISH OIL 1,000 MG CAPSULE. PO SCH (09:14)
[2020-05-11] MEDS: LISINOPRIL 20 MG TABLET PO SCH (09:14)
[2020-05-11] MEDS: amLODIPine BESYLATE 10 MG TABLET PO SCH (09:14)
[2020-05-11] MEDS: GABAPENTIN 100 MG CAPSULE. PO SCH (09:14)
[2020-05-11] MEDS ORDERED: METOPROLOL SUCC 24HR ER 50 MG TAB.ER.24H. PO SCH (09:20)
[2020-05-11] MEDS ORDERED: METO50TA29 PO (09:21)
[2020-05-11 09:23] VITALS: BP 147/72
--- NOTE | 2020-05-11 10:27 | DS ---
DATE OF DISCHARGE: 05/11/2020 ATTENDING PHYSICIANS: Dr. Kohli and Dr. Huntley. FINAL DISCHARGE DIAGNOSES: 1. Community-acquired pneumonia, small infiltrate, right upper lobe. 2. Permanent pacemaker. 3. History of non-Hodgkin's lymphoma, in remission. 4. Essential hypertension. 5. Immunocompromised state. 6. Type 2 diabetes. HISTORY OF PRESENT ILLNESS: This is a 75-year-old female, fairly active, lives at home. She came in with pulmonary symptoms. COVID-19 swab was negative. She had a small infiltrate on chest x-ray. She was admitted with community-acquired pneumonia. PHYSICAL EXAMINATION: Please see the dictated note. PERTINENT LABORATORY AND X-RAY STUDIES: Chest x-ray as noted. Admission hemoglobin was 12.5 g/dL with a white count of 10,000, repeated was down to 5900. Chemistry panel showed stable BUN and creatinine; electrolytes, creatinine is 1.2 mg/dL, nonfasting blood sugar in the mid 100s. Liver panel unremarkable. COURSE IN THE HOSPITAL: The patient was started on intravenous Rocephin and Zithromax with improvement. Minimal cough identified. She was afebrile. She did not require any supplemental oxygen. Other home meds were continued. Diabetic diet administered and sugars were under control. By the fourth hospital day, I came in to see her. Her vital signs were quite stable. She was afebrile. Blood pressure was 147/72. Her oxygen saturation 95% on room air. Her lungs were clear. She wanted to go home. I felt this is reasonable. I recommended 7 more days of cephalexin 500 mg p.o. t.i.d., Zithromax 500 mg daily for 6 more days, then stop. Continuation of her home meds including her Lantus insulin, amlodipine, allopurinol, vitamin C, vitamin D3, diphenhydramine p.r.n., docusate, omega 3 fish oil, Neurontin, insulin, lisinopril, metoprolol, Zocor, and Valerian Root dose is unchanged. She will follow up with regular PCP in 1 week's time. Strong recommendation to avoid secondhand cigarette smoke exposure. The patient was then discharged from our hospital in stable condition with explicit instructions and followup care. WNADER HUNTLEY MD DR: GUANAKITO/pamela JOB#: [id number] / [id number] LAYO Kim MD
--- NOTE | 2020-05-11 10:59 | NUR ---
Patient is D/C home with self care. Patient is stable at time of discharge. Patients IV is removed tele monitor removed. Patient is given discharge and follow up instructions. Patient is escorted off of unit accompanied by staff.
== END 2020-05-11 10:59 | disposition home or self-care (01) | DRG 871 ==
LOC: ER 12:25 → 1 SOUTH 15:00
PROVIDERS: ADMIT Internal Medicine; ATTEND Internal Medicine
DX: A41.9 Sepsis, unspecified organism (principal); J18.1 Lobar pneumonia, unspecified organism; I42.8 Other cardiomyopathies; I47.2 Ventricular tachycardia; D69.6 Thrombocytopenia, unspecified; D89.9 Disorder involving the immune mechanism, unspecified; E11.22 Type 2 diabetes mellitus with diabetic chronic kidney disease; E11.40 Type 2 diabetes mellitus with diabetic neuropathy, unspecified; E78.00 Pure hypercholesterolemia, unspecified; E78.5 Hyperlipidemia, unspecified; I12.9 Hypertensive chronic kidney disease with stage 1 through stage 4 chronic kidney disease, or unspecified chronic kidney disease; I25.10 Atherosclerotic heart disease of native coronary artery without angina pectoris; I48.0 Paroxysmal atrial fibrillation; I49.5 Sick sinus syndrome; J45.909 Unspecified asthma, uncomplicated; M10.9 Gout, unspecified; M19.90 Unspecified osteoarthritis, unspecified site; N18.3 Chronic kidney disease, stage 3 (moderate); W01.0XXA Fall on same level from slipping, tripping and stumbling without subsequent striking against object, initial encounter; Z20.828 Contact with and (suspected) exposure to other viral communicable diseases; Z96.611 Presence of right artificial shoulder joint; Z96.612 Presence of left artificial shoulder joint; Z96.653 Presence of artificial knee joint, bilateral; H61.23 Impacted cerumen, bilateral; Y93.89 Activity, other specified; Y92.89 Other specified places as the place of occurrence of the external cause; Y99.8 Other external cause status; Z90.49 Acquired absence of other specified parts of digestive tract; Z90.710 Acquired absence of both cervix and uterus; Z92.21 Personal history of antineoplastic chemotherapy; Z92.3 Personal history of irradiation; Z95.0 Presence of cardiac pacemaker; Z85.72 Personal history of non-Hodgkin lymphomas; Z88.1 Allergy status to other antibiotic agents; Z88.8 Allergy status to other drugs, medicaments and biological substances; Z98.51 Tubal ligation status; Z82.49 Family history of ischemic heart disease and other diseases of the circulatory system
CPT/HCPCS: 36415; 71045; 80048; 80053; 82947; 83605; 83735; 84443; 84484; 85025; 85027; 87040; 87641; 93005; 96365; J0456; J0696; J1815; J7050; Q0163; 99285-25; U0003-CS

== ENCOUNTER → 2021-03-21 | Outpatient (CLI) | payer MEDICARE ==
[~2021-03-21] MED LIST changes: +AMLO-187 PO; -AMLO10TA8 PO; -CYAN50008 PO; +CYAN50009 PO; +DOXY25TA16 PO; -LISI-334 PO; +LISI20TA18 PO; +METO50TA29 PO
--- NOTE | 2021-03-21 15:59 | CARD ---
MR#: [id number] Date of Study: 03/21/2021 Ordering Physician: STEVEN HAYNES, Referring Physician: STEVEN HAYNES, Tech: Carmelita Light [facility] APPROVED REPORT EXAM: Two-dimensional and M-mode echocardiogram with Doppler and color Doppler. Other Information Quality : Good INDICATION Bradycardia, Pacemaker 2D DIMENSIONS RVDd3.2 (2.9-3.5cm)Left Atrium(2D)3.4 (1.6-4.0cm) IVSd0.9 (0.7-1.1cm)Aortic Root(2D)2.9 (2.0-3.7cm) LVDd3.7 (3.9-5.9cm)LVOT Diameter2.1 (1.8-2.4cm) PWd0.9 (0.7-1.1cm)LVDs3.0 (2.5-4.0cm) FS (%) 27.0 %SV13.9 ml LVEF(%)55.0 (>50%) Aortic Valve AoV Peak Jayden.184.1cm/sAoV VTI36.4cm AO Peak GR.13.5mmHgLVOT Peak Jayden.140.5cm/s LVOT VTI 27.84cmAO Mean GR.8mmHg JESICA (VMAX)2.49dm3JME (VTI)2.69cm2 AI P 1/2 [id number] Mitral Valve MV E Hiqaktqe07.6cm/sMV E Peak Gr.4mmHg MV DECEL [id number] A Lzabgggd21.3cm/s MV E Mean Gr.2mmHgE/A Ratio1.1 Tricuspid Valve TR P. Tdabtfxa261dz/sRAP YEZLFCDE5pnQi TR Peak Gr.78krKgPHXH32tvNx Pulmonary Vein S1 Pdmpazea05.7cm/sD2 Lcitjfhp42.9cm/s LEFT VENTRICLE The left ventricle is normal size. There is mild concentric left ventricular hypertrophy. The left ve ntricular systolic function is normal and the ejection fraction is within normal range. The Ejection Fraction is 55-60%. Apical motion consistent with pacemaker activation. Transmitral Doppler flow sonya riya is Grade II-pseudonormal filling dynamics. RIGHT VENTRICLE The right ventricle is normal size. The right ventricular systolic function is normal. There are vilma ce leads in the right ventricle and atrium. ATRIA The left atrium size is normal. The right atrium size is normal. The interatrial septum is intact wit h no evidence for an atrial septal defect or patent foramen ovale as noted on 2-D or Doppler imaging. AORTIC VALVE The aortic valve is mildly thickened but opens well. Doppler and Color Flow revealed mild aortic regu rgitation. There is no significant aortic valvular stenosis. MITRAL VALVE The mitral valve is calcified but opens well. Mitral annular calcification is mild. There is no evide nce of mitral valve prolapse. There is no mitral valve stenosis. Doppler and Color-flow revealed trac e to mild mitral regurgitation. TRICUSPID VALVE The tricuspid valve is normal in structure and function. Doppler and Color Flow revealed mild tricusp id regurgitation. The PA pressure was estimated at 40 mmHg. There is no tricuspid valve stenosis. PULMONIC VALVE The pulmonic valve is not well visualized. Doppler and Color Flow revealed trace pulmonic valvular re gurgitation. There is no pulmonic valvular stenosis. GREAT VESSELS The aortic root is normal in size. The ascending aorta is mildly dilated at 3.5 cm. The IVC is normal in size and collapses >50% with inspiration. PERICARDIAL EFFUSION There is no evidence of significant pericardial effusion. Critical Notification Critical Value: No <Conclusion> The left ventricle is normal size. The left ventricular systolic function is normal and the ejection fraction is within normal range. The Ejection Fraction is 55-60%. There is mild concentric left ventricular hypertrophy. There are device leads in the right ventricle and atrium. Doppler and Color Flow revealed mild aortic regurgitation. There is no significant aortic valvular stenosis. Doppler and Color-flow revealed trace to mild mitral regurgitation. Doppler and Color Flow revealed mild tricuspid regurgitation. The PA pressure was estimated at 40 mmHg. The ascending aorta is mildly dilated at 3.5 cm. Signed by : Oscar Thurman MD Electronically Approved : 03/21/2021 15:59:24
== END ==
LOC: ECHO 14:28
PROVIDERS: ATTEND Internal Medicine Cardiovascular Disease
DX: I08.3 Combined rheumatic disorders of mitral, aortic and tricuspid valves (principal)
CPT/HCPCS: 93306

== ENCOUNTER → 2021-04-24 | Outpatient (CLI) | payer MEDICARE ==
--- NOTE | 2021-04-24 16:28 | RAD ---
EXAM: Chest, 2 views. HISTORY: Shortness of breath. COMPARISON: 05/08/2020 FINDINGS: 2 views of the chest are obtained. There is no infiltrate, pleural effusion or pneumothorax . The heart is normal in size. There is a cardiac pacemaker with leads in expected position. There ar e bilateral shoulder arthroplasties. There are chronic appearing interstitial changes. IMPRESSION: No acute pulmonary finding. Electronically signed by: Carmen Pozo MD (04/24/2021 4:26 PM) [id number]
== END ==
LOC: DXRAD 16:10
PROVIDERS: ATTEND Nurse Practitioner Family
DX: R06.02 Shortness of breath (principal); Z95.0 Presence of cardiac pacemaker
CPT/HCPCS: 71046

== ENCOUNTER → 2021-09-19 | Outpatient (CLI) | payer MEDICARE ==
[~2021-09-19] MED LIST changes: -DOXY100C2 PO; +DOXY100C3 PO
--- NOTE | 2021-09-19 08:50 | RAD ---
EXAM: XR CHEST 2V 09/19/2021 8:18 AM CLINICAL INDICATION: Cough, sick for 5 weeks COMPARISON: Chest radiograph 04/24/2021 TECHNIQUE: PA and lateral views of the chest FINDINGS: A dual-lead pacemaker is unchanged. Heart is normal in size. Lungs are well-expanded and c lear. There is no consolidation, pleural effusion, or pneumothorax. No pulmonary edema. There is dege nerative disc disease the thoracic spine. Bilateral shoulder prostheses noted. IMPRESSION: No acute cardiopulmonary abnormality. Electronically signed by: Morelia Baird MD (09/19/2021 8:48 AM) [id number]
== END ==
LOC: RAD 08:11
PROVIDERS: ATTEND Physician Assistant Medical
DX: J06.9 Acute upper respiratory infection, unspecified (principal); R05.9 Cough, unspecified; M51.34 Other intervertebral disc degeneration, thoracic region; Z96.612 Presence of left artificial shoulder joint; Z96.611 Presence of right artificial shoulder joint
CPT/HCPCS: 71046

== ENCOUNTER 2021-11-01 15:46 | Emergency (ER) | payer MEDICARE ==
[~2021-11-01] VITALS: Ht 167.6 cm; Wt 86.0 kg
[2021-11-01 19:30] VITALS: BP 129/58
[2021-11-01] MEDS ORDERED: guaiFENesin/CODEINE 100mg/10mg 5 ML LIQUID PO PRN (19:45)
[2021-11-01] MEDS ORDERED: diphenhydrAMINE HCL 25 MG CAPSULE PO ONE (19:45)
[2021-11-01] MEDS ORDERED: ACETAMINOPHEN 500 MG TABLET PO ONE (19:45)
[2021-11-01] MEDS ORDERED: IBUPROFEN 600 MG TABLET. PO ONE (19:45)
--- NOTE | 2021-11-01 19:46 | PHYS DOC ---
Past History Past Medical History: A-Fib, Arthritis, Cancer, Diabetes, High Cholesterol, Hypertension Additional Past Medical Histor: NON HODGKINS LYMPHOMA REMISSION 2008, SKD 3 Past Surgical History: Appendectomy, Cholecystectomy, Hysterectomy, Knee Replacement, Tonsillectomy Additional Past Surgical Histo: artificial knees and shoulders Smoking: Non-smoker Alcohol Use: None Drug Use: None Adult General Chief Complaint Chief Complaint: COUGH HPI HPI Patient is a 76-year-old female who presents with a chief complaint of dry cough over the last 3 months. Denies any recent traumas, travels, illnesses, fevers, chest pain, shortness of breath, abdominal pain, nausea, vomiting, dysuria, hematuria or blood in the stool. Denies any known ill contacts. States she has had her Covid vaccination and was Covid swab last week which was negative. States over the last couple of months she has not been able to see her primary care physician. States she does have a history of GERD and seasonal allergies. Review of Systems Review of Systems Review of systems otherwise unremarkable except noted in HPI Allergies Allergies Allergies Coded Allergies Type Severity Reaction Last Updated Verified levofloxacin Allergy Intermediate 04/12/16 Yes verapamil Allergy Intermediate 04/12/16 Yes I S O L A T I O N *CONTACT* Allergy Unknown 01/08/18 Yes Physical Exam Physical Exam Constitutional: Well developed, well nourished, no acute distress, non-toxic appearance. [] HENT: Normocephalic, atraumatic, bilateral external ears normal, oropharynx moist, no oral exudates, nasal congestion Eyes: conjunctiva normal, no discharge. [] Neck: Normal range of motion, no tenderness, supple, no stridor. [] Cardiovascular:Heart rate regular rhythm, no murmur [] Lungs & Thorax: Bilateral breath sounds clear to auscultation [] Abdomen: soft, no tenderness, no masses, no pulsatile masses. [] Skin: Warm, dry, no erythema, no rash. [] Extremities: No tenderness, no cyanosis, no clubbing, ROM intact, no edema. [] Neurologic: Alert and oriented X 3, normal motor function, normal sensory function, no focal deficits noted. [] Psychologic: Affect normal, judgement normal, mood normal. [] EKG EKG [] Radiology/Procedures Radiology/Procedures [] Heart Score C/O Chest Pain: No Risk Factors: Risk Factors: DM, Current or recent (<one month) smoker, HTN, HLP, family history of CAD, obesity. Risk Scores: Risk Factors: DM, Current or recent (<one month) smoker, HTN, HLP, family history of CAD, obesity. Course & Med Decision Making Course & Med Decision Making Patient is a 76-year-old female who presents with a dry cough for the last 3 months Vital signs not concerning. Physical exam noted above. Given medications for symptom control in the ED. [] Dragon Disclaimer Dragon Disclaimer This electronic medical record was generated, in whole or in part, using a voice recognition dictation system. Departure Departure: Impression: Primary Impression: Cough Additional Impression: Pneumonia Disposition: HOME / SELF CARE / HOMELESS Condition: GOOD Referrals: LAMONTE WOODS (PCP) Patient Instructions: Cough, Adult Additional Instructions: Thank you for coming into the emergency department tonight and allowing us to take care of you. Please read the attached information carefully to go back over some of the things we discussed. You can begin ofpx-utj-ynsrclj medicines such as Tylenol, ibuprofen, Benadryl or combination medicine such as DayQuil and NyQuil. It is very important you follow-up in the morning with your primary care physician to set up a follow-up appointment as soon as possible. Please come back with new or concerning symptoms as we discussed. Scripts Amoxicillin/Potassium Clav (AUGMENTIN 875-125 TABLET) 1 Each Tablet 1 TAB PO BID for PNA for 10 Days, #19 TAB 0 Refills Prov: HARSHAD ROWLEY MD 11/01/21 Problem Qualifiers HARSHAD ROWLEY MD Nov 01, 2021 19:46
[2021-11-01] MEDS ORDERED: AMOX1TAB61 PO (20:07)
[2021-11-01] MEDS ORDERED: AMOXICILLIN/K CLAV 875/125MG TABLET. PO ONE (20:15)
--- NOTE | 2021-11-01 21:07 | RAD ---
XR CHEST 1V Clinical History: Reason: cough / Spl. Instructions: / History: Technique: AP view of the chest was obtained at 11/01/2021 7:45 PM. Comparison: September 19, 2021. Findings: The cardiomediastinal silhouette is normal. The pulmonary vasculature is normal. There is linear reti cular opacities in the lungs. A second pacemaker bilateral shoulder arthroplasties again seen. Impression: Mild bilateral linear and reticular opacities were seen previously and are unchanged to be discoid at electasis or scar. No change. Electronically signed by: Maxwell Shields III, MD (11/01/2021 9:04 PM) HUGO
== END 2021-11-01 20:26 | disposition home or self-care (01) ==
LOC: ER 15:46
DX: J18.9 Pneumonia, unspecified organism (principal); I48.91 Unspecified atrial fibrillation; M19.90 Unspecified osteoarthritis, unspecified site; E11.9 Type 2 diabetes mellitus without complications; E78.00 Pure hypercholesterolemia, unspecified; I10 Essential (primary) hypertension; Z88.1 Allergy status to other antibiotic agents; Z88.8 Allergy status to other drugs, medicaments and biological substances
CPT/HCPCS: 71045; 99284; Q0163

== ENCOUNTER → 2022-03-15 | Outpatient (CLI) | payer MEDICARE ==
[~2022-03-15] MED LIST changes: +AMOX1TAB61 PO
--- NOTE | 2022-03-15 12:12 | RAD ---
CT of the chest without contrast 03/15/2022 INDICATION: Chronic cough, shortness of breath, bronchitis. COMPARISON STUDY: Chest radiograph November 01, 2021 TECHNIQUE: Multidetector CT imaging of the chest was performed without contrast FINDINGS: Heart size is normal. No significant pericardial effusion is identified. Dense coronary birgit cification is present. A dual-lead pacemaking device from left subclavian approach is noted. No patho logically enlarged mediastinal adenopathy is identifiedEvaluation of the lung apices is somewhat limi moreno secondary to hardening artifact from left-sided pacer and bilateral shoulder arthroplasties. Hilario on artifact somewhat limits evaluation of the lung bases. Mild tree-in-bud opacities are seen in the posterior basilar right upper lobe, and right lower lobe. The appearance is nonspecific but most comm only represents mild bronchiolitis most likely infectious or inflammatory etiology. There is no pneum othorax or pleural effusion. Small calcified granuloma noted left lower lobe. Areas of subsegmental d iscoid atelectasis are noted in the lung bases. No acute osseous changes are identified. Limited visu alization of the upper abdomen demonstrates no acute changes. Degenerative changes of the thoracic sp ine noted. IMPRESSION: 1.Very mild tree in bud opacities in the posterior basilar left right upper lobe and right lower lobe . The appearance is nonspecific, but most commonly represents a mild infectious or inflammatory holcomb es of bronchiolitis. 2. No other acute cardiopulmonary process is identified 3. Dense coronary calcification. Dual-lead pacemaking device from left subclavian approach. CT DOSING PQRS STATEMENT: One or more of the following individualized dose reduction techniques were utilized for this examinat ion: 1. Automated exposure control 2. Adjustment of the mA and/or kV according to patient size 3. Use of iterative reconstruction technique Electronically signed by: Kolton John MD (03/15/2022 12:10 PM) [id number]
== END ==
LOC: CT 11:19
PROVIDERS: ATTEND Internal Medicine Cardiovascular Disease
DX: R91.8 Other nonspecific abnormal finding of lung field (principal); I25.10 Atherosclerotic heart disease of native coronary artery without angina pectoris; J98.11 Atelectasis; J84.10 Pulmonary fibrosis, unspecified; M47.814 Spondylosis without myelopathy or radiculopathy, thoracic region; J40 Bronchitis, not specified as acute or chronic; Z95.0 Presence of cardiac pacemaker
CPT/HCPCS: 71250

== ENCOUNTER → 2022-04-03 | Outpatient (CLI) | payer MEDICARE ==
--- NOTE | 2022-04-03 15:54 | CARD ---
MR#: [id number] Date of Study: 04/03/2022 Ordering Physician: STEVEN HAYNES, Referring Physician: STEVEN HAYNES, Tech: Maxwell Charles [facility] APPROVED REPORT EXAM: Two-dimensional and M-mode echocardiogram with Doppler and color Doppler. Other Information Quality : AverageHR: 75bpm Rhythm : NSR INDICATION Atrial Fibrillation Surgery/Intervention Pacemaker: RISK FACTORS Hypertension Hyperlipidemia Diabetes 2D DIMENSIONS Left Atrium(2D)3.7 (1.6-4.0cm)IVSd1.0 (0.7-1.1cm) Aortic Root(2D)2.9 (2.0-3.7cm)LVDd4.4 (3.9-5.9cm) LVOT Diameter2.0 (1.8-2.4cm)PWd1.0 (0.7-1.1cm) LVDs2.7 (2.5-4.0cm)FS (%) 37.3 % SV57.6 mlLVEF(%)67.5 (>50%) Aortic Valve AoV Peak Jayden.176.3cm/sAoV VTI33.3cm AO Peak GR.12.4mmHgLVOT Peak Jayden.100.4cm/s LVOT VTI 23.72cmAO Mean GR.6mmHg JESICA (VMAX)1.38ew2OQH (VTI)2.22cm2 Mitral Valve MV E Eithyxej523.0cm/sMV DECEL [id number] MV A Ezweycku80.5cm/sE/A Ratio1.4 Pulmonary Valve PV Peak Cyujmfvo271.7cm/sPV Peak Grad.6mmHg Tricuspid Valve TR P. Kqqqowxv575dn/sTR Peak Gr.37mmHg Pulmonary Vein S1 Ydbdvovi61.1cm/sD2 Lkrxfmba33.6cm/s LEFT VENTRICLE The left ventricle is normal size. There is normal left ventricular wall thickness. The left ventricu lar systolic function is normal. The ejection fraction is estimated at 65%. There is normal LV segmen aleksandr wall motion. Transmitral Doppler flow pattern is Grade II-pseudonormal filling dynamics. No left ventricle thrombus noted on this study. There is no ventricular septal defect visualized. There is no left ventricular aneurysm. There is no mass noted in the left ventricle. RIGHT VENTRICLE The right ventricle is normal size. There is normal right ventricular wall thickness. The right ventr icular systolic function is normal. Pacer wire is noted in the right atrium and right ventricle. ATRIA The left atrium is moderately dilated. The right atrium size is normal. The interatrial septum is int act with no evidence for an atrial septal defect or patent foramen ovale as noted on 2-D or Doppler i maging. AORTIC VALVE The aortic valve is mildly to moderately sclerotic. Doppler and Color Flow revealed mild aortic regur gitation. There is no significant aortic valvular stenosis. There is no aortic valvular vegetation. MITRAL VALVE The mitral valve is thickened but opens well. Mitral annular calcification is mild to moderate. There is no evidence of mitral valve prolapse. There is no mitral valve stenosis. Doppler and Color-flow r evealed trace to mild mitral regurgitation. TRICUSPID VALVE The tricuspid valve is normal in structure and function. Doppler and Color Flow revealed mild tricusp id regurgitation. The PA pressure was estimated at 40-45 mmHg. There is no tricuspid valve prolapse o r vegetation. There is no tricuspid valve stenosis. PULMONIC VALVE The pulmonary valve is normal in structure and function. Doppler and Color Flow revealed no pulmonic valvular regurgitation. There is no pulmonic valvular stenosis. GREAT VESSELS The aortic root is normal in size. The ascending aorta is normal in size. The pulmonary artery is nor mal. The IVC is normal in size and collapses >50% with inspiration. PERICARDIAL EFFUSION There is no pleural effusion. There is no evidence of significant pericardial effusion. Critical Notification Critical Value: No <Conclusion> The left ventricular systolic function is normal. The ejection fraction is estimated at 65%. There is normal LV segmental wall motion. Transmitral Doppler flow pattern is Grade II-pseudonormal filling dynamics. Pacer wire is noted in the right atrium and right ventricle. Mild aortic regurgitation. Trace to mild mitral regurgitation. Mild tricuspid regurgitation. The PA pressure was estimated at 40-45 mmHg. There is no evidence of significant pericardial effusion. Signed by : Frandy Valenzuela, Electronically Approved : 04/03/2022 15:54:18
== END ==
LOC: ECHO 13:28
PROVIDERS: ATTEND Internal Medicine Cardiovascular Disease
DX: I08.3 Combined rheumatic disorders of mitral, aortic and tricuspid valves (principal); I25.10 Atherosclerotic heart disease of native coronary artery without angina pectoris
CPT/HCPCS: 93306